=== PATIENT | female | born 1970 | race Two or more races ===

== ENCOUNTER → 2024-07-05 | Outpatient (CLI) | payer MEDICAID, SELFPAY ==
--- NOTE | 2024-07-05 08:00 | XR_ITS ---
Examination: Screening digital mammography, bilateral Computer aided detection 3-D breast Tomosynthesis, bilateral Date and time of exam: July 05, 2024 0759 hours Comparison January 06, 2014 Liver s Indication: Screening Technique: Nonmagnified MLO, CC views of the breasts to been obtained, reconstructed from 3-D Tomosynthesis images. R2 computer aided detection program utilized for evaluation of suspicious masses and/or abnormal calcifications. 3-D Tomosynthesis images obtained. Findings: The breast is heterogeneously dense, which may obscure small masses 20 mm focal asymmetry upper outer right breast Benign calcifications Impression: BI-RADS Category 0: Incomplete: Need additional imaging evaluation 20 mm focal asymmetry upper outer right breast, recommend follow-up spot tomographic views upper outer quadrant right breast, right breast sonography to complete the workup
== END | disposition home or self-care (01) ==
PROVIDERS: Referring Provider Physician Assistant; Visit Provider Physician Assistant
DX: Z12.31 Encounter for screening mammogram for malignant neoplasm of breast (principal); R92.8 Other abnormal and inconclusive findings on diagnostic imaging of breast; N64.89 Other specified disorders of breast
CPT/HCPCS: 77063; 77067

== ENCOUNTER 2024-07-10 14:16 | Outpatient (RCR) | payer MEDICAID, SELFPAY ==
--- NOTE | 2024-07-10 14:40 | PT.OIERPT ---
PT OP Initial Eval Patient Information Outpatient Physical Therapy Treatment Date: 07/10/24 Visit Reasons: Weakness Medical Diagnosis: R53.1 Treatment Dx #1: global weakness and deconditioning Start of Care: 07/10/24 Date of Onset: 12 months ago Smoking Status Smoking Status: Never smoker Initial Assessment Subjective: Pt is 53 yr old female who reports weakness and difficulty walking x12 months. She was hospitalized for dehydration and diarrhea and has been feeling LE weakness and doens't think she can walk a full block. This limits HH chore tolerance. She then tripped and fell at home and fractured the humerus. PMH: DM, HTN, kidney failure Pt goal: to get the strength back in my legs Objective: 30 second chair to stand test: 8 with shaky legs [id number] B quad strength: 3+/5 HS: 4-/5 Ankle DF: 4-/5 Eyes closed with feet together: very unsteady Turning around in a bear river: discontinuous steps. Assessment: Pt presents with B LE weakness and decreased TUG and 30 sec CTS scores. Pt is unsteady with eyes closed and has poor single leg standing balance. Pt requires skilled therapy to meet goals and has fair rehab potential. Short Term and [employer] Goals 1. Ind with HEP 2. Improved B quad strength to at least 4/5 3. Improved 30 second CTS test to at least 10 4. Pt will ambulate 1 block continuous with steady balance Treatment Plan 1. Manual therapy ? 2. Therex ? 3. Modalities as indicated, estim, moist heat, ice Frequency and Duration: 1-2x a week for 12 visits Certification Dates: 07/10/24 to 10/06/24 Procedure Charges OP PT Eval Mod Complex 30 minutes: Yes
== END 2024-07-23 23:59 | disposition home or self-care (01) ==
LOC: CPTX 14:16
PROVIDERS: PCP Physician Assistant; Referring Provider Physician Assistant; Visit Provider Physician Assistant
DX: R53.1 Weakness (principal); R26.2 Difficulty in walking, not elsewhere classified
CPT/HCPCS: 97162

== ENCOUNTER 2024-08-20 15:30 | Outpatient (RCR) | payer MEDICAID, SELFPAY ==
--- NOTE | 2024-08-01 17:48 | PT.ODAYNRPT ---
PT Outpatient Daily Note OP Daily Note Outpatient Physical Therapy Treatment Date: 08/01/24 Visit Reasons: Weakness Subjective: Pt c/o fatigue with most exercises here Objective: See F/S for therex Assessment: Pt fatigues and takes rest breaks after most exercises. Plan: Continue as tolerated Length of Time (minutes) of Treatment: 30 Minutes Procedure Charges Therapeutic Exercise 30 minutes: Yes
--- NOTE | 2024-08-07 16:18 | PT.ODAYNRPT ---
PT Outpatient Daily Note OP Daily Note Outpatient Physical Therapy Treatment Date: 08/07/24 Visit Reasons: Weakness Subjective: No new concerns or complaints. Objective: Please see flow sheet for ther ex list. Assessment: Interventions given alternating sitting and standing to maximize pt participation. Plan: Continue with POC. Length of Time (minutes) of Treatment: 30 Minutes Procedure Charges Therapeutic Exercise 30 minutes: Yes
--- NOTE | 2024-08-20 15:32 | PT.ODAYNRPT ---
PT Outpatient Daily Note OP Daily Note Outpatient Physical Therapy Treatment Date: 08/20/24 Visit Reasons: Weakness Subjective: Pt c/o B leg weakness. Objective: Please see flow sheet for ther ex list. Assessment: Focus on restoring strength per pt tolerance. Plan: Continue with pOC. Length of Time (minutes) of Treatment: 30 Minutes Procedure Charges Therapeutic Exercise 30 minutes: Yes
== END 2024-08-23 23:59 | disposition home or self-care (01) ==
LOC: CPTX 15:30
PROVIDERS: PCP Physician Assistant; Referring Provider Physician Assistant; Visit Provider Physician Assistant
DX: R53.1 Weakness (principal); R26.2 Difficulty in walking, not elsewhere classified; I10 Essential (primary) hypertension; E11.9 Type 2 diabetes mellitus without complications
CPT/HCPCS: 97110

== ENCOUNTER 2024-09-06 09:28 | Inpatient (IN) | payer MEDICAID, SELFPAY ==
--- NOTE | 2024-09-06 09:36 | PC.NURSE ---
Pt.'s cousin who is pt.'s ride is Nelsy Bocanegra [phone].
[2024-09-06 09:40] VITALS: BP 139/74; PULSE 112; RESP 18; TEMP 36.9; O2SAT 99; BMI 24.2
--- NOTE | 2024-09-06 09:44 | PD.EDRME ---
Rapid Medical Screening Exam RME Arrival date/time: 09/06/24 09:28 53-year-old female with a history of hypertension, type 2 diabetes presents to the emergency room for abnormal kidney function. Patient states that she was sent over by Dr. Pedraza her shell assembler for worsening kidney function. Patient states Dr Pedraza told her that she will need to start dialysis. Patient recently had a vitrectomy surgery to her eye yesterday. I have greeted and performed a focused initial assessment of this patient. A comprehensive ED assessment and evaluation of the patient, analysis of all test results, and completion of the medical decision making process will be conducted by additional ED providers. Chief Complaint: Recheck/Abnormal Lab/Rx Vital signs: Vital Signs Temperature 98.5 F 09/06/24 09:40 Pulse Rate 112 H 09/06/24 09:40 Respiratory Rate 18 09/06/24 09:40 Blood Pressure 139/74 H 09/06/24 09:40 Pulse Oximetry (%) 99 09/06/24 09:40 Oxygen Delivery Method Room Air 09/06/24 09:40 Vital signs reviewed by provider: Yes
[2024-09-06 10:08] LABS: Basophils % (Auto) 0 % (0-2.5); Eosinophils % (Auto) 0 % (0-10); Immature Granulocytes % (Auto) 0 % (0-0); Immature Granulocytes Auto 0.03 Thou/mm3 (0.00-0.00); Lymphocytes # (Auto) 1.8 Thou/mm3 (1.0-4.8); Lymphocytes % (Auto) 23 % (10-50); Mean Corpuscular HGB Conc 34.1 g/dl (31.0-37.0); Mean Corpuscular Hemoglobin 31.3 pg (25.0-35.0); Mean Corpuscular Volume 92 fL (80-100); Monocytes # (Auto) 0.5 Thou/mm3 (0.0-0.8); Monocytes % (Auto) 6 % (0-12); Neutrophils # (Auto) 5.2 Thou/mm3 (1.8-7.7); Neutrophils % (Auto) 69 % (37-80); Nucleated Red Blood Cell % 0 /100 WBC (0); Platelet Count 167 Thou/mm3 (140-440); RDW Standard Deviation 48.5 fL (36.4-46.3); White Blood Count 7.5 Thou/mm3 (3.6-11.0)
[2024-09-06 10:25] LABS: Prothrombin Time 11.1 Seconds (9.0-12.2)
[2024-09-06 10:31] LABS: Hemoglobin 7.5 g/dL (12.0-16.0)
[2024-09-06 10:32] LABS: Alanine Aminotransferase 66 U/L (10-49); Albumin, Serum 3.2 gm/dL (3.5-5.0); Albumin/Globulin Ratio 1.1 (1.2-2.2); Alkaline Phosphatase 142 U/L (46-116); Anion Gap 10 (7-16); Aspartate Amino Transferase 83 U/L (0-34); BUN/Creatinine Ratio 14 Ratio (12-20); Bilirubin,Total 0.4 mg/dL (0.3-1.2); Blood Urea Nitrogen 65 mg/dL (9-23); Calcium 8.1 mg/dL (8.3-10.6); Calcium (Corrected) 8.7 mg/dL (8.5-10.1); Carbon Dioxide 18.5 mMol/L (20.0-31.0); Chloride 111 mMol/L (98-107); Creatinine (Component) 4.5 mg/dL (0.6-1.3); Estimated Creatinine Clearance 10.6 mL/min (>60); Globulin 2.9 gm/dL (2.3-3.5); Glucose 175 mg/dL (74-106); Magnesium 1.7 mg/dL (1.6-2.6); Osmolality,Calculated 300 (275-295); Phosphorous 5.5 mg/dL (2.4-5.1); Potassium 4.9 mMol/L (3.4-5.1); Sodium 139 mMol/L (136-145); Total Protein 6.1 gm/dL (5.7-8.2); eGFR 11 See Note
--- NOTE | 2024-09-06 10:59 | EDNOTE_ITS ---
ED Recheck Abnl Lab Rx-RME/HPI General Chief Complaint: Recheck/Abnormal Lab/Rx Stated Complaint: Dr. Pedraza sent pt. for kidney function dropping Time Seen by Provider: 09/06/24 10:47 Arrival date/time: 09/06/24 09:28 RME / HPI RME / HPI narrative: 09/06/24 09:28 53-year-old female with a history of hypertension, type 2 diabetes presents to the emergency room for abnormal kidney function. Patient states that she was sent over by Dr. Pedraza her supervisor type bar and segment for worsening kidney function. Patient states Dr Pedraza told her that she will need to start dialysis. Patient recently had a vitrectomy surgery to her eye yesterday. I have greeted and performed a focused initial assessment of this patient. A comprehensive ED assessment and evaluation of the patient, analysis of all test results, and completion of the medical decision making process will be conducted by additional ED providers. -------- Main ED Evaluation: Patient is a 53-year-old female with past medical history of hypertension, type 2 diabetes, and CKD who was sent to the ED by her Graphic Art Sales Representative Dr. Pedraza who called her with lab results due to worsening kidney function on labs drawn on 09/04/2024 at [facility]. Labs showed GFR of 10, and for comparison prior labs 06/2024 showed GFR of 18. Patient had never been on dialysis before. Patient reports otherwise feeling in her usual state of health, and denies any new nausea, vomiting, diarrhea, chest pain, shortness of breath, or abdominal pain. Patient denies any fever, chills, and sweats. Patient reports that she is making her usual amount of urine and does not notice a change in the color or caliber. Patient had a right eye vitrectomy procedure yesterday at [facility] Dr. Johnson. Per instructions patient may have eye patch removed today, then is to start 2 different eye drops: ofloxacin opthalmic solution 0.3% 1 drop QID, prednisolone acetate 1% 1 drop QID. Patient's post-op follow up appointment is 09/16. complaint: abnormal lab Onset/Timin Initial visit (ago): day(s) Related Data Home Medications ?Medication ?Instructions ?Recorded ?Confirmed blood sugar diagnostic (True 02/12/24 02/12/24 Metrix Glucose Test Strip) lancets 30 gauge (TRUEplus Lancets) 02/12/24 02/12/24 pen needle, diabetic 31 gauge x 02/12/24 02/12/24 3/16 (TechLITE Pen Needle) Previous Rx's ?Medication ?Instructions ?Recorded allopurinol 100 mg tablet 100 mg PO QDAY 30 days #30 t abs 02/12/24 blood sugar diagnostic (Blood #50 ea 02/12/24 Glucose Test strips) flash glucose scanning reader #1 ea 02/12/24 (FreeStyle Daniel 2 [place]) flash glucose sensor (FreeStyle #1 ea 02/12/24 Daniel 2 Sensor kit) insulin glargine 100 unit/mL (3 36 unit (0.36 mL) subc ut BID #15 mL 02/12/24 mL) subcutaneous pen (Basaglar KwikPen U-100 Insulin) lancets (Lancets, Super Thin) #200 ea 02/12/24 pen needle, diabetic 29 gauge #100 ea 02/12/24 acetaminophen 300 mg-codeine 30 mg 1 tab PO BID PRN pa in #14 tabs 02/26/24 tablet Allergies Allergy/AdvReac Type Severity Reaction Status Date / Time No Known Allergies Allergy Verified 09/06/24 09:33 Review of Systems Review of Systems Systems Reviewed: All systems reviewed, normal except as documented Past Medical History Past Medical History Comments PMH COMMENT: Past Medical History: Hypertension, type 2 diabetes, and CKD Family History: Diabetes and heart disease in both parents and sister, ESRD sister on dialysis Surgical History: Right eye vitrectomy 09/05/2024, left breast biopsy, tubal ligation Social History: Remote history of smoking about 10 pack years, former alcohol use quit 10 years ago, used to drink 1 bottle of vodka daily, denies recreational drug use Current Medications: Insulin glargine 1-6 U daily, atorvastatin 20 mg HS, empagliflozin 25 qday, insulin glargine, lisinopril 2.5 mg qday, hydroxyzine 10 mg BID prn anxiety, Zofran 4 mg prn, Coty-Baldev, Vitamin D2, ofloxacin opthalmic solution 0.3% 1 drop QID, prednisolone acetate 1% 1 drop QID (Source: Patient medication bottles) Allergies: No known drug allergies ED Exam Narrative Physical exam: Physical Exam General: Awake and in no acute distress. Conversational and non-toxic appearing. HEENT: Normocephalic, atraumatic, mucous membranes moist. Right eye patch in place. Heart: Regular rate and rhythm, no murmurs. Lungs: Clear to auscultation with no wheezing or crackles. Abdomen: Soft, nondistended, nontender, positive bowel sounds. ?No guarding or rebound tenderness. Neurologic: Alert and oriented x3, no gross neurological deficit, and patient able to move all 4 extremities. Extremities: No edema. Skin: No rash or ecchymoses. Course Quality Measures none Orders Category Date Time Status Admit to Inpatient Status Routine Admission 09/06/24 15:58 Active Patient Condition Routine Admission 09/06/24 15:58 Ordered Activity as Tolerated Routine Care 09/06/24 16:05 Ordered Bedside Blood Glucose AC Care 09/06/24 16:05 Active COVID-19 Screening Questionnaire NOW Care 09/06/24 14:39 Active Decision to Admit X1 Care 09/06/24 14:39 Active Miscellaneous Nursing Order X1 Care 09/06/24 16:10 Active Notify provider NEEDED Care 09/06/24 15:58 Active Obtain weight X1 Care 09/06/24 16:03 Active Strict Intake and Output Routine Care 09/06/24 15:59 Ordered Vital Signs, Non-Routine Q4H Care 09/06/24 16:00 Ordered Vital Signs, Non-Routine Q4H Care 09/06/24 20:00 Ordered Consult to Nephrology Stat Cons 09/06/24 11:04 Ordered Diet Carbohydrate Consistent Low Diet 09/06/24 Dinner Active CBC AM DRAW Lab 09/07/24 05:00 Ordered CBC AM DRAW Lab 09/08/24 05:00 Ordered CBC AM DRAW Lab 09/09/24 05:00 Ordered CBC Stat Lab 09/06/24 09:55 Completed CMP [Comprehensive Metabolic Panel] Stat Lab 09/06/24 09:55 Completed Chloride,Urine Random Routine Lab 09/06/24 16:39 Ordered Comprehensive Metabolic Panel AM DRAW Lab 09/07/24 05:00 Ordered Comprehensive Metabolic Panel AM DRAW Lab 09/08/24 05:00 Ordered Comprehensive Metabolic Panel AM DRAW Lab 09/09/24 05:00 Ordered Creatinine,Random Urine Routine Lab 09/06/24 16:39 Ordered Hemoglobin A1C [Glycohemoglobin w (eAG)] AM DRAW Lab 09/07/24 05:00 Ordered Lipid Panel Routine Lab 09/07/24 05:00 Ordered Magnesium AM DRAW Lab 09/07/24 05:00 Ordered Magnesium AM DRAW Lab 09/08/24 05:00 Ordered Magnesium AM DRAW Lab 09/09/24 05:00 Ordered Magnesium Stat Lab 09/06/24 09:55 Completed PT [Prothrombin Time with INR] Stat Lab 09/06/24 09:55 Completed PTT [Partial Thromboplastin Time] Stat Lab 09/06/24 09:55 Completed Partial Thromboplastin Time AM DRAW Lab 09/07/24 05:00 Ordered Phosphorous AM DRAW Lab 09/07/24 05:00 Ordered Phosphorous AM DRAW Lab 09/08/24 05:00 Ordered Phosphorous AM DRAW Lab 09/09/24 05:00 Ordered Phosphorous Stat Lab 09/06/24 09:55 Completed Potassium,Urine Random Routine Lab 09/06/24 16:39 Ordered Prothrombin Time with INR AM DRAW Lab 09/07/24 05:00 Ordered Sodium,Urine Random Routine Lab 09/06/24 16:39 Ordered Thyroid Stimulating Hormone AM DRAW Lab 09/07/24 05:00 Ordered Urinalysis Stat Lab 09/06/24 16:16 Completed Urine Culture Stat Lab 09/06/24 16:16 Received Acetaminophen Tab [Tylenol Tab] Med 09/06/24 16:05 Active 650 mg PO Q6H PRN Atorvastatin Calcium [Lipitor] Med 09/06/24 21:00 Active 20 mg PO HS Benzonatate [Tessalon] Med 09/06/24 16:16 Active 100 mg PO Q12H PRN Dextrose 50% Syr [D50w Syringe Abboject] Med 09/06/24 16:05 Active 25 ml IV Q15MIN PRN Dextrose 50% Syr [D50w Syringe Abboject] Med 09/06/24 16:05 Active 50 ml IV Q15MIN PRN Glucagon Inj Med 09/06/24 16:05 Active 1 mg IM Q15MIN PRN Heparin Inj Med 09/06/24 16:15 Active 5,000 unit SC Q12H INSULIN LISPRO (AdmeLOG) [HumaLOG] Med 09/06/24 17:00 Active See Protocol SC AC Labetalol IV [Trandate IV] Med 09/06/24 16:39 Active 10 mg IVP Q12H PRN Ofloxacin Opt Marjorie 0.3% [Floxin Opt Marjorie 0.3%] Med 09/06/24 17:00 Active 1 drop RIGHT EYE QID Ondansetron Inj [Zofran Inj] Med 09/06/24 16:05 Active 4 mg IV Q6H PRN Pantoprazole [Protonix] Med 09/07/24 09:00 Active 40 mg PO QDAY Ringers Lactated 1000 ml [Lactated Ringers] 1,000 ml Med 09/06/24 11:57 Active IV 100 mls/hr Ringers Lactated 1000 ml [Lactated Ringers] 1,000 ml Med 09/06/24 11:46 Discontinued IV 999 mls/hr Senna [Senokot] Med 09/06/24 16:05 Active 1 tab PO QDAY PRN hydrOXYzine HCL [Atarax] Med 09/06/24 21:00 Active 10 mg PO HS prednisoLONE OP SUSP 1% [Pred-Forte Op Susp 1%] Med 09/06/24 17:00 Active 1 drop RIGHT EYE QID Code Status Routine Oth 09/06/24 15:58 Ordered Vital Signs Vital signs: Vital Signs Temperature 98.5 F 09/06/24 09:40 Pulse Rate 112 H 09/06/24 09:40 Respiratory Rate 18 09/06/24 09:40 Blood Pressure 139/74 H 09/06/24 09:40 Pulse Oximetry (%) 99 09/06/24 09:40 Oxygen Delivery Method Room Air 09/06/24 09:40 Recheck / Abnormal Lab / Rx MDM Narrative MDM Narrative:: Labs here show sodium 139, potassium 4.9, BUN 65, creatinine of 4.5, GFR 11, phos 5.5. Review of the records indicate patient's prior baseline was creatinine 2.1-2.7 and GFR in the 20s. Patient most likely has a ARIK on CKD, secondary to dehydration versus possible UTI, will await urine studies and then consult hospital team for admission. UA shows negative for leukocyte esterase, 11 squamous cells, 6 WBCs and rare bacteria. Unlikely patient has a UTI. Patient data External records reviewed:: [facility] previous records and Other (specify) (Nephrolog y lab records) Clinical information provided by:: patient and other (specify) (Graphic Art Sales Representative Dr. Pedraza) Social determinants that could affect healthcare access:: none Patient has the following chronic illnesses:: As above How is presenting disease/condition affected by chronic disease/condition?: caused by Evaluation data The following diagnostics were reviewed and interpreted by me:: lab results, radiology exam(s) and EKG tracing(s) Lab and/or radiology exams considered but not ordered:: Ordered Interpretation Summary: As above Medications / Prescriptions Medications or Prescriptions considered but not ordered:: Given Medication administrations:: Medication Administration History Acetaminophen (Acetaminophen 325 Mg Tablet) 650 mg PO Q6H PRN PRN Reason: Fever >100 or pain 1-3 Stop: 10/06/24 16:04 Atorvastatin Calcium (Atorvastatin Calcium 10 Mg Tablet) 20 mg PO HS DANIEL Stop: 10/06/24 20:59 Benzonatate (Benzonatate 100 Mg Capsule) 100 mg PO Q12H PRN; Protocol PRN Reason: cough Stop: 10/06/24 16:15 Dextrose (Dextrose 50%-Water Inj 50 Ml Syringe) 25 ml IV Q15MIN PRN PRN Reason: BG 50-70 responsive npo pt Stop: 10/06/24 16:04 Dextrose (Dextrose 50%-Water Inj 50 Ml Syringe) 50 ml IV Q15MIN PRN PRN Reason: BG <50 OR BG <70 & pt unresponsive Stop: 10/06/24 16:04 Glucagon (Glucagon Inj 1 Mg Vial) 1 mg IM Q15MIN PRN PRN Reason: BG <70, and no IV access Heparin Sodium (Porcine) (Heparin Sod Inj 5000 Unit/Ml Vial) 5,000 unit SC Q12H DANIEL Stop: 09/20/24 16:14 Hydroxyzine HCl (Hydroxyzine Hcl 10 Mg Tablet) 10 mg PO HS DANIEL Stop: 10/06/24 20:59 Lactated Ringer's (Lactated Ringers) 1,000 mls @ 100 mls/hr IV .Q10H DANIEL Stop: 09/06/24 21:56 Insulin Human Lispro (Insulin Lispro (Admelog) 1 Unit/0.01 Ml Unit) 0 unit SC AC [facility]; Protocol Stop: 10/06/24 16:59 Labetalol HCl (Labetalol Inj 5 Mg/Ml Vial 20 Ml) 10 mg IVP Q12H PRN PRN Reason: hypertension Stop: 10/06/24 16:38 Ofloxacin (Ofloxacin Op Marjorie 0.3% 5 Ml Btl) 1 drop RIGHT EYE QID DANIEL Stop: 09/15/24 16:59 Ondansetron HCl (Ondansetron Inj 2 Mg/Ml Inj 2 Ml) 4 mg IV Q6H PRN; Protocol PRN Reason: NAUSEA OR VOMITING Stop: 10/06/24 16:04 Pantoprazole Sodium (Pantoprazole 40 Mg Tablet) 40 mg PO QDAY DANIEL Stop: 10/07/24 08:59 Prednisolone Acetate (Prednisolone Op Susp 1% 5 Ml Btl) 1 drop RIGHT EYE QID DANIEL Stop: 09/15/24 16:59 Sennosides (Senna Tablet) 1 tab PO QDAY PRN; Protocol PRN Reason: constipation Stop: 10/06/24 16:04 Discontinued Medications Lactated Ringer's (Lactated Ringers) 1,000 mls @ 999 mls/hr IV .Q1H1M ONE Stop: 09/06/24 12:46 Given Consultations Consultation(s) initiated? (list below): Yes Consultation #1 (Physician, Specialty, Details): 11:39 Patient's Graphic Art Sales Representative, Dr. Pedraza - Discussed patient including lab findings here in ED today. According to [facility] in Dr. Pedraza's chart patient had GFR of 10, whereas last lab check in 06/2024 showed a prior GFR of 18. Urinalysis at that time also suggested UTI. Advises patient be admitted for IV fluids for prerenal ARIK on CKD and treated for UTI. Hold off on dialysis for now and reassess response to fluids. Consultation #2 (Physician, Specialty, Details): 14:35 Hospitalist Team C, Dr. Meraz with attending Dr. Sweeney - Discussed patient's presentation, lab findings, and recommendations from Dr. Pedraza. Patient is to be admitted for ARIK on CKD. Will come evaluate the patient for admission. Diagnosis Recheck Differential Diagnosis: other Most likely diagnosis given after review of the tests above:: ARIK on CKD, progressive renal failure secondary to longstanding diabetes mellitus Admission Indicated Admission indicated?: indicated Explain why admission is indicated or not indicated:: IV fluids for ARIK on CKD Admission Request Was there a request for admission?: Yes Admission Attestation Admission request attestation: Discussed case with [] from Hospitalist service regarding admission. Discussed patients ED course, exam findings, labs, and radiology results. The Hospitalist [agrees,declines] to accept the patient for admission. Disposition Plan Disposition Plan: Admit Discharge Plan Plan Patient Disposition: Admit Acute Care w/in Hospital Patient condition on transfer: Stable Prescriptions/Referrals Prescriptions/Med Rec: No Action (DME) True Metrix Glucose Test Strip Strip (DME) pen needle, diabetic [TechLITE Pen Needle] 31 gauge x 3/16 needle (DME) lancets [TRUEplus Lancets] 30 gauge misc insulin glargine [Basaglar KwikPen U-100 Insulin] 100 unit/mL (3 mL) insulin pen 36 unit subcut BID Qty: 15 3RF allopurinol 100 mg tablet 100 mg PO QDAY 30 Days Qty: 30 3RF (DME) Blood Glucose Test Strip See Rx Instructions .Route Qty: 50 3RF Rx Instructions: As directed (DME) pen needle, diabetic 29 gauge needle See Rx Instructions .Route Qty: 100 0RF Rx Instructions: As directed (DME) lancets [Lancets, Super Thin] Misc See Rx Instructions .Route Qty: 200 3RF Rx Instructions: As directed (DME) FreeStyle Daniel 2 [place] Misc See Rx Instructions .Route Qty: 1 3RF Rx Instructions: As directed (DME) FreeStyle Daniel 2 Sensor Kit See Rx Instructions .Route Qty: 1 3RF Rx Instructions: As directed acetaminophen-codeine 300-30 mg tablet 1 tab PO BID PRN (Reason: pain) Qty: 14 0RF Referrals: Mykel Wilson PA-C [Primary Care Provider] - In 1 week Problem List Clinical Impression: Acute kidney injury superimposed on chronic kidney disease Patient/Caregiver Discharge Instructions Print Language: [place] Stand Alone Forms: [facility] Award Info., Patient Portal Info Letter
[2024-09-06 15:52] VITALS: BP 158/88; PULSE 105; RESP 15; TEMP 36.7; O2SAT 100
--- NOTE | 2024-09-06 16:18 | ESHP_ITS ---
<Statement entered by Moe Meraz MD - 09/07/24 15:42> Senior Resident Attestation: I supervised/discussed management plan with internal combustion engineer physician Dr. Haile, and was involved in the care of this patient. I personally saw and examined the patient and discussed the assessment and plan with the entire medicine team, including my attending. I agree with the assessment and plan as documented. Patient is a 53 years old female with PMH of IDDM type 2, CKD stage IV, HTN presented to the ED after call from her pain management nurse practitioner and was admitted for ARIK with Cr of 4.5 and was started on IVF. Dr. Pedraza is on board. Patient's care was discussed with attending physician, Dr. Sweeney. Moe Meraz MD PGY-2. Documentation for date of: 09/06/24 HPI History of Present Illness History of present illness: Catrina is a 53 y/o female with uncontrolled insulin-dependent diabetes type 2, CKD stage IV, hypertension who is here for an evaluation of worsening renal labs. Patient this morning was informed by her pain management nurse practitioner, Dr. Pedraza, who instructed patient to go to the ER after seeing that her renal labs were elevated. She does endorse that yesterday she had a right sided vitrectomy done at [facility] by Dr. Johnson, Opthalamologist. She does state that she needs to continue taking 2 different eyedrops and needs her patch removed when done so. She does say that she got an IV yesterday, was unsure of what medicines including contrast she was given. She denies recent poor oral intake and also denies being on any water pills. She says she has been dealing with longstanding diabetes in addition to chronic kidney disease. She said she had a vitrectomy done as her eye was bleeding. She states that she has a chronic cough but denies any fever or chills at this time. She denies any recent travel. She says that she was recently diagnosed with Crohn's, is not taking any medicine for it, and sometimes has diarrhea with it but does not specify how many times she has diarrhea in a day. She says other than that her bowels are fine. She otherwise has no other complaints at this time. She denies using a walker but says she feels weak and is able to walk on her own at times. Patient confirmed information on the ED course: Patient arrived to the ED afebrile, heart rate of 112, respiratory of 18, blood pressure of 139/74, respiratory 18, saturating 99% on RA. She was worked up and found to have a white count 7.5, hemoglobin 7.5, platelet count of 167, coagulation panel negative, sodium 139, potassium 4.9, chloride 111, bicarb of 19, BUN/creatinine of 65 and 4.5 respectively, GFR of 11, glucose 175, phosphorus 5.5, calcium 8.7, mag 1.7, AST ALT 83 and 66 respectively, pending urine. She was given 1 L bolus of LR, started on LR 100 cc an hour. Medicine was consulted and patient was admitted to the floors PMHx: As above Surgical Hx: Tubal ligation Meds: Lipitor, Jardiance, lisinopril, hydroxyzine, Basaglar (she says 6 units) Zofran, prednisolone eyedrops, ofloxacin eyedrops, Cadence-nichelle Allergies: No known allergies Family history: Denies a family history of medical problems including stroke and diabetes and heart attacks Social history: Was born in [facility] and lives in [place] now with her daughter who is 19 years old. She has other kids, her oldest being 37 years old. She denies any recent travel. Says that she does not use a walker. Eats a majority of meals at home denies having any oral or IV drug use, was a heavy drinker for 1 year of her life when she was younger in which she drink 1 bottle of vodka a day, smoked 1 cigarette for about 3 months when she was younger. Review of Systems Review of Systems Narrative Review of Systems: Constitutional: No fever, chills, fatigue, weakness, weight loss HEENT: No eye pain, vision loss, ear pain, hearing loss, dysphagia, Cardiovascular: No chest pain, palpitations, edema, pain with walking Respiratory: + cough, no shortness of breath, wheezing GI: No NVD, abdominal pain, constipation, blood in stool, loss of appetite, heartburn Extremities: No presence of pitting edema MSK: No back pain, joint pain, joint swelling Neuro: No dizziness, numbness, weakness, headaches, seizures, tremors Psych: No anxiety, depression Exam Vital Signs Temp Pulse Resp BP Pulse Ox O2 Del Method 98.5 F 112 H 18 139/74 H 99 Room Air 09/06/24 09:40 09/06/24 09:40 09/06/24 09:40 09/06/24 09:40 09/06/24 09:40 09/06/24 09:40 Narrative Exam General: AAOx3, NAD, eating salad, looks older than her age HEENT: Moist mucous membranes, right eye patch present, Extremely poor dentition Cardiovascular: Systolic EM heard upon VIJAYA, radial pulses +2 bilat, RRR Pulmonary: CTAB bilat no cough, no wheezing GI: No tenderness to light or deep palpitation, no guarding, rigidity, rebound tenderness or distension Extremities: No presence of trace or pitting edema in lower extremities bilaterally, dorsalis pedis pulses +2 bilaterally Neuro: AAOx3, no focal motor or sensory deficits in the UE or LE bilat Psych: Cooperative Results: Labs 09/06/24 09:55 09/06/24 09:55 Labs: Short CBC 09/06/24 Range/Units 09:55 WBC 7.5 (3.6-11.0) Thou/mm3 Hgb 7.5 L (12.0-16.0) g/dL Hct 22.0 L (36.0-46.0) % Plt Count 167 (140-440) Thou/mm3 BMP 09/06/24 09:55 Sodium 139 Potassium 4.9 Chloride 111 H Carbon Dioxide 18.5 L BUN 65 H Creatinine 4.5 H* Glucose 175 H Calcium 8.1 L Liver Function 09/06/24 Range/Units 09:55 Total Bilirubin 0.4 (0.3-1.2) mg/dL AST 83 H (0-34) U/L ALT 66 H (10-49) U/L Alkaline Phosphatase 142 H (46-116) U/L Albumin 3.2 L (3.5-5.0) gm/dL Quality Measures Quality Measures VTE prophylaxis (Heparin) Medications Home Medications and Allergies Home Medications ?Medication ?Instructions ?Recorded ?Confirmed ?Type blood sugar diagnostic (True 02/12/24 02/12/24 Histor y Metrix Glucose Test Strip) lancets 30 gauge (TRUEplus Lancets) 02/12/24 02/12/24 History pen needle, diabetic 31 gauge x 02/12/24 02/12/24 His tory 10/06 (TechLITE Pen Needle) Allergies Allergy/AdvReac Type Severity Reaction Status Date / Time No Known Allergies Allergy Verified 09/06/24 09:33 Visit Medications Acetaminophen (Acetaminophen 325 Mg Tablet) 650 mg PO Q6H PRN PRN Reason: Fever >100 or pain 1-3 Stop: 10/06/24 16:04 Atorvastatin Calcium (Atorvastatin Calcium 10 Mg Tablet) 20 mg PO HS [facility] Stop: 10/06/24 20:59 Benzonatate (Benzonatate 100 Mg Capsule) 100 mg PO Q12H PRN; Protocol PRN Reason: cough Stop: 10/06/24 16:15 Dextrose (Dextrose 50%-Water Inj 50 Ml Syringe) 25 ml IV Q15MIN PRN PRN Reason: BG 50-70 responsive npo pt Stop: 10/06/24 16:04 Dextrose (Dextrose 50%-Water Inj 50 Ml Syringe) 50 ml IV Q15MIN PRN PRN Reason: BG <50 OR BG <70 & pt unresponsive Stop: 10/06/24 16:04 Glucagon (Glucagon Inj 1 Mg Vial) 1 mg IM Q15MIN PRN PRN Reason: BG <70, and no IV access Heparin Sodium (Porcine) (Heparin Sod Inj 5000 Unit/Ml Vial) 5,000 unit SC Q12H DANIEL Stop: 09/20/24 16:14 Hydroxyzine HCl (Hydroxyzine Hcl 10 Mg Tablet) 10 mg PO HS [facility] Stop: 10/06/24 20:59 Lactated Ringer's (Lactated Ringers) 1,000 mls @ 100 mls/hr IV .Q10H DANIEL Stop: 09/06/24 21:56 Insulin Human Lispro (Insulin Lispro (Admelog) 1 Unit/0.01 Ml Unit) 0 unit SC AC DANIEL; Protocol Stop: 10/06/24 16:59 Ofloxacin (Ofloxacin Op Marjorie 0.3% 5 Ml Btl) 1 drop RIGHT EYE QID DANIEL Stop: 09/15/24 16:59 Ondansetron HCl (Ondansetron Inj 2 Mg/Ml Inj 2 Ml) 4 mg IV Q6H PRN; Protocol PRN Reason: NAUSEA OR VOMITING Stop: 10/06/24 16:04 Pantoprazole Sodium (Pantoprazole 40 Mg Tablet) 40 mg PO QDAY DANIEL Stop: 10/07/24 08:59 Prednisolone Acetate (Prednisolone Op Susp 1% 5 Ml Btl) 1 drop RIGHT EYE QID DANIEL Stop: 09/15/24 16:59 Sennosides (Senna Tablet) 1 tab PO QDAY PRN; Protocol PRN Reason: constipation Stop: 10/06/24 16:04 Discontinued Medications Lactated Ringer's (Lactated Ringers) 1,000 mls @ 999 mls/hr IV .Q1H1M ONE Stop: 09/06/24 12:46 Assessment & Plan Plan Assessment Catrina is a 53 y/o female with uncontrolled insulin-dependent diabetes type 2, CKD stage IV, hypertension who is admitted for ARIK. #ARIK #History of CKD stage IV Patient has ARIK at this time, likely prerenal, but patient may also of gotten contrast yesterday, unlikely during ophthalmologic procedure We will see how patient recovers if patient does not recover and goes into acute renal failure may need dialysis Status post 1 L bolus of LR GFR currently [address] Pedraza nephrology Creatinine seems to be 2.3 at baseline Plan: ? Nephrology consulted, appreciate recs ? Strict JOSE's ? Avoid nephrotoxic agents ? Renally dose medicines ? LR 100 cc an hour ? Urine lytes and creatinine #History of hypertension Plan: ? Labetalol 10 mg for systolic blood pressure above 170 with holding parameters ? Holding home lisinopril in setting of ARIK #History of insulin-dependent diabetes type 2 Seems to be uncontrolled Takes 6 units of Basaglar at home Plan: ? SSI ? Hypoglycemic protocol in place ? Carb consistent low diet ? Blood glucose checks with meals #Status post vitrectomy postoperative day 1 Patient said she got procedure for a bleeding right eye Patient does have eyepatch and right eye Plan: ? Resumed home prednisolone eyedrops 1 drop in right eye 4 times a day ? Resumed home ofloxacin eyedrops 1 drop in right eye 4 times a day #Health Maintenance Disposition: Med/Surg DVT prophylaxis: Heparin q12h GI prophylaxis: Protonix Diet: Carb low CODE STATUS:Full Patient seen and care discussed with my senior resident, Dr. Meraz, and my attending physician, Dr. Zahra Haile, PGY-1
[2024-09-06 16:25] LABS: Collection Type, Urine Clean Catch
[2024-09-06 16:40] LABS: Bacteria,Urine Rare; Bilirubin,Urine Negative (Negative); Blood,Urine 2+ (Negative); Color,Urine Yellow (Lt Yel-Yel); Glucose, Urine 4+ (Negative); Ketones,Urine Negative (Negative); Leukocyte Esterase,Urine Negative (Negative); Nitrite,Urine Negative (Negative); PH,Urine 6.5 (5.0-7.0); Protein,Urine 3+ (Neg - Trace); RBC,Urine 3 /hpf (0-3); Specific Gravity,Urine 1.017 (1.001-1.035); Squamous Epithelial Cell,Urine 11 /hpf (0-5); Urobilinogen,Urine Negative mg/dL (0.0-1.0); WBC,Urine 6 /hpf (0-5)
[2024-09-06 16:42] LABS: Clarity,Urine Hazy (Clear/Hazy)
[2024-09-06 17:40] VITALS: BP 154/86; PULSE 96; RESP 19; O2SAT 100
[2024-09-06] MEDS: RINGERS LACTATED 1000 ML 1,000 ML 999 ML IV (17:49)
[2024-09-06] MEDS: RINGERS LACTATED 1000 ML 1,000 ML 100 ML IV (17:57)
[2024-09-06] MEDS: HEPARIN SOD INJ 5000 UNIT/ML VIAL SC (18:02)
[2024-09-06] MEDS: OFLOXACIN OP SOL 0.3% 5 ML BTL 1 DROP RIGHT EYE (18:06)
[2024-09-06] MEDS: prednisoLONE OP SUSP 1% 5 ML BTL 1 DROP RIGHT EYE (18:07)
[2024-09-06 18:10] VITALS: BP 156/89; PULSE 95; RESP 18; TEMP 36.9; O2SAT 100
[2024-09-06] MEDS: ACETAMINOPHEN 325 MG TABLET 650 MG PO (19:40)
--- NOTE | 2024-09-06 20:02 | ESCONSULT_ITS ---
HPI Data of Consult Consult date: 09/06/24 Requesting Physician: Christi Sweeney MD Admitting Provider: Christi Sweeney MD Attending Provider: Christi Sweeney MD Primary Care Provider: Mykel Wilson PA-C Consult Narrative Reason for consult: ARIK on CKD stage IV with electrolyte abnormality History of present illness: The patient is a 53-year-old female with significant past medical history of uncontrolled DM 2, CKD stage IV, hypertension was sent by carpet winder Dr. Pedraza due to worsening of renal function labs. The patient underwent right eye vitrectomy at [facility] by office worker Dr. Johnson. The patient admitted having chronic cough, but denied any chest pain or SOB, fever or chills, he admitted occasional diarrhea as she was recently diagnosed with Crohn's disease. In the ED her vitals were stable with blood pressure 139/74, pulse rate 112 saturating 99% on room air. The patient's last labs revealed hemoglobin 7.5, hematocrit 22.0, sodium 139, potassium 4.9, chloride 111, bicarb 18.5, BUN 65, creatinine 4.5, EGFR 11, blood sugar 175, corrected calcium 8.7, phosphorus 5.5, mild transaminitis with AST/ALT 83/66, ALP 142, UA revealed protein 3+, glucose 4+, blood 2+, WBC 6, bacteria rare. The patient was given 1 L IV LR bolus and started on 100 cc/h of LR and admitted to the floors. Nephrology consultation was done for further management of ARIK on CKD stage IV and electrolyte abnormalities. PMH: As mentioned above SHX: Left breast biopsy, tubal ligation, right I be directed to me on 09/05/2024 Social history: Remote history of a smoking around 10 pack years, former alcohol use quit 10 years ago, used to drink 1 bottle of vodka daily, denies any recreational drug use Family history: Diabetes and heart disease in both parents and sister, ESRD on sister on HD Medications: Insulin glargine 1 two 6 unit daily, atorvastatin 20 Mg at bedtime, empagliflozin 25 mg daily, insulin glargine, lisinopril 2.5 Mg daily, hydroxyzine 10 Mg twice daily as needed for anxiety, Zofran 4 mg as needed, Coty-Baldev, vitamin D2, ofloxacin ophthalmic solution 0.3% 1 drop 4 times daily, prednisone acetate 1% 1 drop 4 times daily. Allergies: No known allergies cc:: cc: Christi Sweeney MD Review of Systems Review of Systems Systems Reviewed: All systems reviewed, normal except as documented Past Medical History Past Medical History NEUROLOGIC: Negative Seizures CARDIAC: Positive Hypertension; Negative Cardiac Disorders or Congestive Heart Failure RESPIRATORY: Negative Chronic Obstructive Pulmonary Disease (COPD) GASTROINTESTINAL: Positive Gastrointestinal Disorders, Gall Bladder Disease and Obesity GENITOURINARY: Positive Genitourinary Disorders; Negative Renal Disease MUSCULOSKELETAL: Positive Musculoskeletal Disorders, Arthritis and Gout ENDOCRINE: Positive Endocrine Disorders and Diabetes Mellitus Type 2; Negative Diabetes Mellitus Type 1 HEMATOLOGIC: Negative Anemia OTHER HISTORY: Positive Falls; Negative Blood Transfusions, Blood Transfusion Reaction, Anesthesia Reactions, MRSA, VRSA or Cancer Family History FAMILY HISTORY: Positive Family Cardiac Disorders and Family Cancer (PT'S MOM THROAT CANCER) Surgical History SURGICAL: Negative Section Social History SMOKING STATUS: Former smoker Past Medical History Comments PMH COMMENT: Past Medical History: Hypertension, type 2 diabetes, and CKD Family History: Diabetes and heart disease in both parents and sister, ESRD sister on dialysis Surgical History: Right eye vitrectomy 09/05/2024, left breast biopsy, tubal ligation Social History: Remote history of smoking about 10 pack years, former alcohol use quit 10 years ago, used to drink 1 bottle of vodka daily, denies recreational drug use Current Medications: Insulin glargine 1-6 U daily, atorvastatin 20 mg HS, empagliflozin 25 qday, insulin glargine, lisinopril 2.5 mg qday, hydroxyzine 10 mg BID prn anxiety, Zofran 4 mg prn, Coty-Baldev, Vitamin D2, ofloxacin opthalmic solution 0.3% 1 drop QID, prednisolone acetate 1% 1 drop QID (Source: Patient medication bottles) Allergies: No known drug allergies Exam Vital Signs Temp Pulse Resp BP Pulse Ox O2 Del Method 98.5 F 95 18 156/89 H 100 Room Air 09/06/24 18:10 09/06/24 18:10 09/06/24 18:10 09/06/24 18:10 09/06/24 18:10 09/06/24 18:10 Narrative Exam General: No acute distress, Alert and Oriented x 3 HEENT: Moist mucous membranes, oropharynx clear, right eye patch present Neck: Supple, No masses, No JVD CVS: S1S2 Regular rate and rhythm, No murmurs, rubs or gallops Lungs: Clear to auscultation with no accessory use, no wheeze no rhonchi Abd: Soft, NT/ND, +BS, no organomegaly Ext: 0 to 1+ lower limb edema, warm and well perfused Skin: No rash Psych: Appropriate mood and affect Results Labs 09/08/24 05:44 09/08/24 05:44 Labs: Short CBC 09/06/24 Range/Units 09:55 WBC 7.5 (3.6-11.0) Thou/mm3 Hgb 7.5 L (12.0-16.0) g/dL Hct 22.0 L (36.0-46.0) % Plt Count 167 (140-440) Thou/mm3 BMP 09/06/24 09:55 Sodium 139 Potassium 4.9 Chloride 111 H Carbon Dioxide 18.5 L BUN 65 H Creatinine 4.5 H* Glucose 175 H Calcium 8.1 L Liver Function 09/06/24 Range/Units 09:55 Total Bilirubin 0.4 (0.3-1.2) mg/dL AST 83 H (0-34) U/L ALT 66 H (10-49) U/L Alkaline Phosphatase 142 H (46-116) U/L Albumin 3.2 L (3.5-5.0) gm/dL Urine 09/06/24 Range/Units 16:16 Urine Color Yellow (Lt Yel-Yel) Urine Clarity Hazy (Clear/Hazy) Urine pH 6.5 (5.0-7.0) Ur Specific [place] 1.017 (1.001-1.035) Urine Protein 3+ A (Neg - Trace) Urine Glucose (UA) 4+ A (Negative) Quality Measures Quality Measures VTE prophylaxis (Heparin) Medications Home Medications and Allergies Home Medications ?Medication ?Instructions ?Recorded ?Confirmed ?Type blood sugar diagnostic (True 02/12/24 02/12/24 Histor y Metrix Glucose Test Strip) lancets 30 gauge (TRUEplus Lancets) 02/12/24 02/12/24 History pen needle, diabetic 31 gauge x 02/12/24 02/12/24 His tory 10/06 (TechLITE Pen Needle) B complex-vitamin C-folic acid PO QDAY 09/07/24 Histo ry atorvastatin 20 mg tablet 20 mg PO .evening 09/07/24 0 09/07/24 History empagliflozin 25 mg tablet 25 mg PO QDAY 09/07/2408/24 History (Jardiance) Held on 09/08/24. Instructions: Resume on 09/15/24. ergocalciferol (vitamin D2) 1,250 09/07/24 History mcg (50,000 unit) capsule hydroxyzine HCl 10 mg tablet 10 mg PO BID 09/07/24 History lisinopril 2.5 mg tablet mg 09/07/24 History Held on 09/08/24. Instructions: Resume on 09/15/24. ofloxacin 0.3 % eye drops 1 drp ophthalmic (eye) QID 0 09/07/24 09/07/24 History ondansetron 4 mg disintegrating 4 mg PO PRN nausea and vomiting 09/07/24 History tablet prednisolone acetate 1 % eye 1 drp ophthalmic (eye) QI D 09/07/24 09/07/24 History drops,suspension (Pred Forte) vitamin B complex-vitamin C-folic tab 09/07/24 Histor y acid 0.8 mg tablet (Coty-Baldev) Allergies Allergy/AdvReac Type Severity Reaction Status Date / Time No Known Allergies Allergy Verified 09/06/24 09:33 Visit Medications Acetaminophen (Acetaminophen 325 Mg Tablet) 650 mg PO Q6H PRN PRN Reason: Fever >100 or pain 1-3 Stop: 10/06/24 16:04 Last Admin: 09/06/24 19:40 Dose: 650 mg Atorvastatin Calcium (Atorvastatin Calcium 10 Mg Tablet) 20 mg PO HS DANIEL Stop: 10/06/24 20:59 Benzonatate (Benzonatate 100 Mg Capsule) 100 mg PO Q12H PRN; Protocol PRN Reason: cough Stop: 10/06/24 16:15 Dextrose (Dextrose 50%-Water Inj 50 Ml Syringe) 25 ml IV Q15MIN PRN PRN Reason: BG 50-70 responsive npo pt Stop: 10/06/24 16:04 Dextrose (Dextrose 50%-Water Inj 50 Ml Syringe) 50 ml IV Q15MIN PRN PRN Reason: BG <50 OR BG <70 & pt unresponsive Stop: 10/06/24 16:04 Glucagon (Glucagon Inj 1 Mg Vial) 1 mg IM Q15MIN PRN PRN Reason: BG <70, and no IV access Heparin Sodium (Porcine) (Heparin Sod Inj 5000 Unit/Ml Vial) 5,000 unit SC Q12H [facility] Stop: 09/20/24 16:14 Last Admin: 09/06/24 18:02 Dose: 5,000 unit Hydroxyzine HCl (Hydroxyzine Hcl 10 Mg Tablet) 10 mg PO HS [facility] Stop: 10/06/24 20:59 Lactated Ringer's (Lactated Ringers) 1,000 mls @ 100 mls/hr IV .Q10H DANIEL Stop: 09/06/24 21:56 Last Admin: 09/06/24 17:57 Dose: 100 mls/hr Insulin Human Lispro (Insulin Lispro (Admelog) 1 Unit/0.01 Ml Unit) 0 unit SC AC [facility]; Protocol Stop: 10/06/24 16:59 Last Admin: 09/06/24 18:00 Dose: Not Given Labetalol HCl (Labetalol Inj 5 Mg/Ml Vial 20 Ml) 10 mg IVP Q12H PRN PRN Reason: hypertension Stop: 10/06/24 16:38 Ofloxacin (Ofloxacin Op Marjorie 0.3% 5 Ml Btl) 1 drop RIGHT EYE QID [facility] Stop: 09/15/24 16:59 Last Admin: 09/06/24 18:06 Dose: 1 drop Ondansetron HCl (Ondansetron Inj 2 Mg/Ml Inj 2 Ml) 4 mg IV Q6H PRN; Protocol PRN Reason: NAUSEA OR VOMITING Stop: 10/06/24 16:04 Pantoprazole Sodium (Pantoprazole 40 Mg Tablet) 40 mg PO QDAY [facility] Stop: 10/07/24 08:59 Prednisolone Acetate (Prednisolone Op Susp 1% 5 Ml Btl) 1 drop RIGHT EYE QID [facility] Stop: 09/15/24 16:59 Last Admin: 09/06/24 18:07 Dose: 1 drop Sennosides (Senna Tablet) 1 tab PO QDAY PRN; Protocol PRN Reason: constipation Stop: 10/06/24 16:04 Discontinued Medications Lactated Ringer's (Lactated Ringers) 1,000 mls @ 999 mls/hr IV .Q1H1M ONE Stop: 09/06/24 12:46 Last Admin: 09/06/24 17:49 Dose: 999 mls/hr Assessment & Plan Plan The patient is a 53-year-old female with significant past medical history of uncontrolled DM 2, CKD stage IV, hypertension was sent by carpet winder Dr. Pedraza due to worsening of renal function labs. Nephrology consultation was done for further management of AIRK on CKD stage IV and electrolyte abnormalities. #ARIK on stage IV CKD Likely prerenal but denies poor appetite or low p.o. intake Presented with creatinine 4.3, BUN 65 and GFR 11, baseline creatinine around 2.1, GFR in 20s Patient received 1 L LR bolus in the ED -Started on LR 100 cc/h -Avoid nephrotoxic drugs -Renal dose medications -Ordered urine electrolytes -Continue to monitor renal panel daily in the a.m. - renal BI ordered #RTA type IV Secondary to chronic kidney disease Presented with hyperkalemic and hyperchloremic metabolic acidosis with chloride 111, potassium 4.9 and bicarb 18.5 -Started on Bicitra 30 mL twice daily as it has mortality benefit when bicarb level is less than 22 -Continue to monitor daily renal panel #Hyperphosphatemia Secondary to CKD Presented with phosphorus of 5.5 -Started on sevelamer 800 Mg 3 times daily with meals -Continue to monitor phosphorus level daily in the a.m. #Primary hypertension Blood pressure in the range of 150s-160s/80s-to 90s -On IV labetalol 2.5 Mg every 4 hourly as needed for SBP 170 with holding parameters -Continue to hold home lisinopril in the setting of ARIK #Insulin-dependent diabetes mellitus type 2 #Status post vitrectomy -Management deferred to primary hospitalist team Thank you for your opportunity to participate nephrology team in this patient care. The patient's management plan was discussed with my attending physician MD Albino Rios MD, PGY2 Attending Provider Attestation/Addendum Patient seen and examined with resident physician Dr. Gauthier. Note reviewed, agree with findings and recommendations. Patient with advanced CKD stage IV diabetic nephropathy has been following up with me for the last couple of years. In June her GFR was 18. Currently comes with a GFR of 11. Admits to decreased p.o. intake. Will continue with fluids. If no improvement will plan for renal replacement therapy. Patient agreed. She also has a severe diabetic retinopathy-under the care of an office worker in [place]. Recently had retinal detachment and surgery. Legally blind. Renal Prognosis poor. Thank you Dr. Sweeney for allowing me to participate in the care of Ms. Lorenzo
[2024-09-06 20:31] VITALS: BP 165/109; PULSE 93; RESP 19; O2SAT 96
[2024-09-07 00:27] VITALS: BMI 29.2
--- NOTE | 2024-09-07 01:15 | XR_ITS ---
Examination: Retroperitoneal ultrasound, complete Technique: Multiple high resolution grayscale images of the retroperitoneum obtained, including kidneys and bladder. Exam date and time:September 07, 2024 0126 hrs. Indications: Acute renal insufficiency superimposed on chronic kidney disease this week Findings: Right kidney 9.7 x 4.0 x 4.7 cm cortex 1.1 cm Left kidney 11.8 x 5.4 x 4.6 cm renal cortex 1.9 cm Mild left hydronephrosis No bladder mass Bladder prevoid volume 160 cc unable to void Incidental note mild ascites Impression: Mild left hydronephrosis
[2024-09-07] MEDS: CITRIC ACID/SODIUM CITR 15 ML UDC (BICITRA) 30 ML PO ×3 (02:12→20:27)
[2024-09-07] MEDS: ATORVASTATIN CALCIUM 10 MG TABLET 20 MG PO ×2 (02:13→20:26)
--- NOTE | 2024-09-07 02:42 | PRELIM_ITS ---
Renal/Retroperitoneal ultrasound. September 07, 2024 0126 hours Clinical history: ARIK on CKD Findings: Right: The right kidney measures 9.7 x 4 x 4.7 cm, evaluation is limited due to overlying bowel gas. The corticomedullary differentiation is maintained. Left: The left kidney measures 11.8 x 5.4 x 4.6 cm. There is mild hydronephrosis. There is no renal calculus. The corticomedullary differentiation is maintained. The urinary bladder is unremarkable. The pre void volume measures 168.64 mL. Bilateral ureteric jets are demonstrated. The patient is unable to void. There is mild ascites around the liver and spleen. Impression: Mild left hydronephrosis. Evaluation of the right kidney is limited due to overlying bowel gas. Mild ascites as described. Report Electronically Signed By: Ti Luna 09/07/2024 2:40:29 AM [EST]
[2024-09-07 04:00] VITALS: BP 134/92; PULSE 93; RESP 16; TEMP 36.5; O2SAT 97
[2024-09-07] MEDS: HEPARIN SOD INJ 5000 UNIT/ML VIAL SC ×2 (05:10→16:53)
[2024-09-07] MEDS: prednisoLONE OP SUSP 1% 5 ML BTL 1 DROP RIGHT EYE ×4 (05:11→20:27)
[2024-09-07] MEDS: OFLOXACIN OP SOL 0.3% 5 ML BTL 1 DROP RIGHT EYE ×4 (05:12→20:28)
[2024-09-07 05:53] LABS: Basophils % (Auto) 0 % (0-2.5); Eosinophils # (Auto) 0.1 Thou/mm3 (0.0-0.5); Eosinophils % (Auto) 1 % (0-10); Hematocrit 21.7 % (36.0-46.0); Immature Granulocytes % (Auto) 0 % (0-0); Immature Granulocytes Auto 0.03 Thou/mm3 (0.00-0.00); Lymphocytes # (Auto) 2.8 Thou/mm3 (1.0-4.8); Lymphocytes % (Auto) 40 % (10-50); Mean Corpuscular HGB Conc 33.6 g/dl (31.0-37.0); Mean Corpuscular Hemoglobin 31.6 pg (25.0-35.0); Mean Corpuscular Volume 94 fL (80-100); Monocytes # (Auto) 0.4 Thou/mm3 (0.0-0.8); Monocytes % (Auto) 5 % (0-12); Neutrophils # (Auto) 3.7 Thou/mm3 (1.8-7.7); Neutrophils % (Auto) 53 % (37-80); Nucleated Red Blood Cell % 0 /100 WBC (0); Platelet Count 181 Thou/mm3 (140-440); RDW Standard Deviation 47.7 fL (36.4-46.3); Red Blood Count 2.31 Miln/mm3 (4.00-5.20); White Blood Count 6.9 Thou/mm3 (3.6-11.0)
[2024-09-07 06:11] LABS: Partial Thromboplastin Time 32.2 Seconds (22.0-36.0)
[2024-09-07 06:20] LABS: Hemoglobin 7.3 g/dL (12.0-16.0)
[2024-09-07 06:36] LABS: Alanine Aminotransferase 50 U/L (10-49); Albumin/Globulin Ratio 1.1 (1.2-2.2); Alkaline Phosphatase 120 U/L (46-116); Anion Gap 11 (7-16); Aspartate Amino Transferase 57 U/L (0-34); BUN/Creatinine Ratio 14 Ratio (12-20); Bilirubin,Total 0.4 mg/dL (0.3-1.2); Blood Urea Nitrogen 58 mg/dL (9-23); Calcium 8.1 mg/dL (8.3-10.6); Calcium (Corrected) 8.9 mg/dL (8.5-10.1); Carbon Dioxide 18.2 mMol/L (20.0-31.0); Cardiac Risk Estimate 2.4 RATIO (3.7-5.6); Chloride 111 mMol/L (98-107); Cholesterol 106 mg/dL (132-200); Creatinine (Component) 4.1 mg/dL (0.6-1.3); Estimated Creatinine Clearance 12.8 mL/min (>60); Globulin 2.7 gm/dL (2.3-3.5); Glucose 94 mg/dL (74-106); HDL Cholesterol 45 mg/dL (40-60); LDL Cholesterol,Calculated 36 mg/dL (0-130); Magnesium 1.7 mg/dL (1.6-2.6); Osmolality,Calculated 295 (275-295); Phosphorous 4.9 mg/dL (2.4-5.1); Potassium 4.8 mMol/L (3.4-5.1); Sodium 140 mMol/L (136-145); Thyroid Stimulating Hormone 1.36 uIU/mL (0.55-4.78); Total Protein 5.7 gm/dL (5.7-8.2); Triglycerides 124 mg/dL (30-150); eGFR 12 See Note
[2024-09-07 06:42] LABS: Glucose Estimated Average 143 mg/dL (80-131); Hemoglobin A1C 6.6 % Hgb (4.8-6.0)
[2024-09-07 08:00] VITALS: BP 159/88; PULSE 101; RESP 19; TEMP 36.7; O2SAT 91
[2024-09-07] MEDS: PANTOPRAZOLE 40 MG TABLET PO (09:14)
[2024-09-07] MEDS: SEVELAMER CARBONATE 800 MG TABLET PO ×3 (09:14→16:52)
[2024-09-07 12:00] VITALS: BP 134/84; PULSE 104; RESP 18; TEMP 35.8; O2SAT 98
--- NOTE | 2024-09-07 12:36 | ESPR_ITS ---
Documentation for date of: 09/07/24 Subjective Subjective Interval history: Patient was seen and examined at bedside. No acute overnight events. Patient reports no complaints today. Her creatinine has improved slightly from 4.5-4.1 today. Will continue IV fluids. Ultrasound of kidneys showed bilateral hydronephrosis. Will continue current management and monitor patient. Exam Vital Signs Temp Pulse Resp BP Pulse Ox O2 Del Method 98.0 F 101 H 19 159/88 H 91 L Room Air 09/07/24 08:00 09/07/24 08:00 09/07/24 08:00 09/07/24 08:00 09/07/24 08:00 09/07/24 08:00 Narrative Exam Gen: Well-developed and well-nourished elderly female. HEENT: NCAT, PERRLA, EOMI, MMM, anicteric conjunctivae, poor dentition, right eye covered with postop patch. CVS: normal S1 and S2. RRR. Systolic murmur over aortic area. Resp: CTA B/L. No rhonchi, rales, crackles or wheezing. Abd: soft, non-tender, non-distended. BS+ in all 4 quadrants. MSK: Good ROM in BUE & BLE. No edema or rash. Neuro: CN II-XII grossly intact. Strength 5/5 in BUE & BLE. Alert and oriented x3. Psych: appropriate mood and affect. Objective Labs 09/07/24 05:00 09/07/24 05:03 Labs: Laboratory Results - last 24 hr 09/06/24 09/07/24 09/07/24 16:16 05:00 05:03 WBC 6.9 RBC 2.31 L Hgb 7.3 L Hct 21.7 L* MCV 94 MCH 31.6 MCHC 33.6 RDW Std Deviation 47.7 H Plt Count 181 Neut % (Auto) 53 Lymph % (Auto) 40 [place] % (Auto) 5 Eos % (Auto) 1 Baso % (Auto) 0 Neut # (Auto) 3.7 Lymph # (Auto) 2.8 [place] # (Auto) 0.4 Eos # (Auto) 0.1 Baso # (Auto) 0.0 Immature Gran # (Auto) 0.03 H Absolute Nucleated RBC 0.00 Immature Gran % 0 Nucleated RBC % 0 PT 11.0 INR 1.0 APTT 32.2 Sodium 140 Potassium 4.8 Chloride 111 H Carbon Dioxide 18.2 L Anion Gap 11 BUN 58 H Creatinine 4.1 H* Estim Creat Clear Calc 12.8 L eGFR 12 L* BUN/Creatinine Ratio [address] Glu mg/dL 143 H Hemoglobin A1c 6.6 H Calculated Osmolality 295 Calcium 8.1 L Corrected Calcium 8.9 Phosphorus 4.9 Magnesium 1.7 Total Bilirubin 0.4 AST 57 H ALT 50 H Alkaline Phosphatase 120 H D Total Protein 5.7 Albumin 3.0 L Globulin 2.7 Albumin/Globulin Ratio 1.1 L Triglycerides 124 Cholesterol 106 L LDL Cholesterol, Calc 36 HDL Cholesterol 45 Cholesterol/HDL Ratio 2.4 L TSH 1.36 Ur Collection Type Clean Catch Urine Color Yellow Urine Clarity Hazy Urine pH 6.5 Ur Specific [place] 1.017 Urine Protein 3+ A Urine Glucose (UA) 4+ A Urine Ketones Negative Urine Blood 2+ A Urine Nitrite Negative Urine Bilirubin Negative Urine Urobilinogen (Auto) Negative Ur Leukocyte Esterase Negative Urine RBC 3 Urine WBC 6 H Ur Squamous Epith Cells 11 H Urine Bacteria Rare Quality Measures Quality Measures VTE prophylaxis (Heparin) Assessment & Plan Assessment Current Active Medications: Generic Name Dose Route Start Last Admin Trade Name Freq PRN Reason Stop Dose Admin Acetaminophen 650 mg 09/06/24 16:05 09/06/24 19:40 Acetaminophen 325 Mg Tablet PO 10/06/24 16:04 650 mg Q6H PRN Administration Fever >100 or pain 1-3 Atorvastatin Calcium 20 mg 09/06/24 21:00 09/07/24 02:13 Atorvastatin Calcium 10 Mg Tablet PO 10/06/24 20:59 20 mg HS DANIEL Administration Benzonatate 100 mg 09/06/24 16:16 Benzonatate 100 Mg Capsule PO 10/06/24 16:15 Q12H PRN cough Protocol Citric Acid/Sodium Citrate 30 ml 09/06/24 21:00 09/07/24 09:13 Citric Acid/Sodium Citr 15 Ml Udc (Bicitra) PO 10/06/24 20:59 30 ml BID DANIEL Administration Dextrose 25 ml 09/06/24 16:05 Dextrose 50%-Water Inj 50 Ml Syringe IV 10/06/24 16:04 Q15MIN PRN BG 50-70 responsive npo pt Dextrose 50 ml 09/06/24 16:05 Dextrose 50%-Water Inj 50 Ml Syringe IV 10/06/24 16:04 Q15MIN PRN BG <50 OR BG <70 & pt unresponsive Glucagon 1 mg 09/06/24 16:05 Glucagon Inj 1 Mg Vial IM Q15MIN PRN BG <70, and no IV access Heparin Sodium (Porcine) 5,000 unit 09/06/24 16:15 09/07/24 05:10 Heparin Sod Inj 5000 Unit/Ml Vial SC 09/20/24 16:14 5,000 unit Q12H DANIEL Administration Hydroxyzine HCl 10 mg 09/06/24 21:00 09/07/24 02:14 Hydroxyzine Hcl 10 Mg Tablet PO 10/06/24 20:59 Not Given HS DANIEL Insulin Human Lispro 0 unit 09/06/24 17:00 09/07/24 11:58 Insulin Lispro (Admelog) 1 Unit/0.01 Ml Unit SC 10/06/24 16:59 Not Given AC DANIEL Protocol Labetalol HCl 2.5 mg 09/06/24 20:29 Labetalol Inj 5 Mg/Ml Vial 20 Ml IVP 10/06/24 16:38 Q4H PRN SBP > 170 Ofloxacin 1 drop 09/06/24 17:00 09/07/24 12:01 Ofloxacin Op Marjorie 0.3% 5 Ml Btl RIGHT EYE 09/15/24 16:59 1 drop QID DANIEL Administration Ondansetron HCl 4 mg 09/06/24 16:05 Ondansetron Inj 2 Mg/Ml Inj 2 Ml IV 10/06/24 16:04 Q6H PRN NAUSEA OR VOMITING Protocol Pantoprazole Sodium 40 mg 09/07/24 09:00 09/07/24 09:14 Pantoprazole 40 Mg Tablet PO 10/07/24 08:59 40 mg QDAY DANIEL Administration Prednisolone Acetate 1 drop 09/06/24 17:00 09/07/24 12:00 Prednisolone Op Susp 1% 5 Ml Btl RIGHT EYE 09/15/24 16:59 1 drop QID DANIEL Administration Sennosides 1 tab 09/06/24 16:05 Senna Tablet PO 10/06/24 16:04 QDAY PRN constipation Protocol Sevelamer Carbonate 800 mg 09/07/24 08:00 09/07/24 12:03 Sevelamer Carbonate 800 Mg Tablet PO 10/07/24 07:59 800 mg TIDWM DANIEL Administration Plan Catrina is a 53 y/o female with uncontrolled insulin-dependent diabetes type 2, CKD stage IV, hypertension who is admitted for ARIK. #ARIK. #History of CKD stage IV. Patient has ARIK at this time, likely prerenal, but patient may also of gotten contrast yesterday, unlikely during ophthalmologic procedure We will see how patient recovers if patient does not recover and goes into acute renal failure may need dialysis Status post 1 L bolus of LR GFR currently [address] Pedraza nephrology Creatinine seems to be 2.3 at baseline Plan: ? Nephrology consulted, appreciate recs ? Strict JOSE's ? Avoid nephrotoxic agents ? Renally dose medicines ? LR 100 cc an hour ? Urine lytes and creatinine #History of hypertension Plan: ? Labetalol 10 mg for systolic blood pressure above 170 with holding parameters ? Holding home lisinopril in setting of ARIK #History of insulin-dependent diabetes type 2 Seems to be uncontrolled Takes 6 units of Basaglar at home Plan: ? SSI ? Hypoglycemic protocol in place ? Carb consistent low diet ? Blood glucose checks with meals #Status post vitrectomy postoperative day 1 Patient said she got procedure for a bleeding right eye Patient does have eyepatch and right eye Plan: ? Resumed home prednisolone eyedrops 1 drop in right eye 4 times a day ? Resumed home ofloxacin eyedrops 1 drop in right eye 4 times a day Health Maintenance: Disposition: Med/Surg DVT prophylaxis: Heparin q12h GI prophylaxis: Protonix Diet: Carb low CODE STATUS:Full Plan of care discussed with attending Dr. Sweeney. Moe Meraz MD, PGY 2. Disclaimer: This note was dictated by speech recognition. Minor errors in polysomnographic tech may be present due to voice recognition software.
--- NOTE | 2024-09-07 13:58 | ESPR_ITS ---
Documentation for date of: 09/07/24 Subjective Subjective Interval history: The patient is a 53-year-old female with significant past medical history of uncontrolled DM 2, CKD stage IV, hypertension was sent by powder hand Dr. Pedraza due to worsening of renal function labs. The patient underwent right eye vitrectomy at [facility] by safety and security manager Dr. Johnson. The patient admitted having chronic cough, but denied any chest pain or SOB, fever or chills, he admitted occasional diarrhea as she was recently diagnosed with Crohn's disease. In the ED her vitals were stable with blood pressure 139/74, pulse rate 112 saturating 99% on room air. The patient's last labs revealed hemoglobin 7.5, hematocrit 22.0, sodium 139, potassium 4.9, chloride 111, bicarb 18.5, BUN 65, creatinine 4.5, EGFR 11, blood sugar 175, corrected calcium 8.7, phosphorus 5.5, mild transaminitis with AST/ALT 83/66, ALP 142, UA revealed protein 3+, glucose 4+, blood 2+, WBC 6, bacteria rare. PMH: As mentioned above SHX: Left breast biopsy, tubal ligation, right I be directed to me on 09/05/2024 Social history: Remote history of a smoking around 10 pack years, former alcohol use quit 10 years ago, used to drink 1 bottle of vodka daily, denies any recreational drug use Family history: Diabetes and heart disease in both parents and sister, ESRD on sister on HD Medications: Insulin glargine 1 two 6 unit daily, atorvastatin 20 Mg at bedtime, empagliflozin 25 mg daily, insulin glargine, lisinopril 2.5 Mg daily, hydroxyzine 10 Mg twice daily as needed for anxiety, Zofran 4 mg as needed, Coty-Baldev, vitamin D2, ofloxacin ophthalmic solution 0.3% 1 drop 4 times daily, prednisone acetate 1% 1 drop 4 times daily. Allergies: No known allergies The patient was given 1 L IV LR bolus and started on 100 cc/h of LR and admitted to the floors. Nephrology consultation was done for further management of ARIK on CKD stage IV and electrolyte abnormalities. 09/07/2024: The patient was interviewed and examined at the bedside this morning. She reported doing well. Her vitals were fairly stable with heart rate 104. Hemoglobin 7.3, hematocrit 21.7, sodium 140, potassium 4.8, chloride 211, bicarb 18.2, BUN 58, creatinine 4.1, GFR 12. Mild transaminitis seen. Urine electrolytes and bilateral renal ultrasound was ordered that was significant for mild left hydronephrosis. We will continue with LR 100 cc/h and continue to monitor renal panel. Exam Vital Signs Temp Pulse Resp BP Pulse Ox O2 Del Method 96.4 F L 104 H 18 134/84 H 98 Room Air 09/07/24 12:00 09/07/24 12:00 09/07/24 12:09/07/24 12:09/07/24 12:09/07/24 12:00 Narrative Exam General: No acute distress, Alert and Oriented x 3 HEENT: Moist mucous membranes, oropharynx clear, right eye patch present Neck: Supple, No masses, No JVD CVS: S1S2 Regular rate and rhythm, No murmurs, rubs or gallops Lungs: Clear to auscultation with no accessory use, no wheeze no rhonchi Abd: Soft, NT/ND, +BS, no organomegaly Ext: No lower limb edema, warm and well perfused Skin: No rash Psych: Appropriate mood and affect Objective Labs 09/08/24 05:44 09/08/24 05:44 Labs: Laboratory Results - last 24 hr 09/06/24 09/07/24 09/07/24 16:16 05:00 05:03 WBC 6.9 RBC 2.31 L Hgb 7.3 L Hct 21.7 L* MCV 94 MCH 31.6 MCHC 33.6 RDW Std Deviation 47.7 H Plt Count 181 Neut % (Auto) 53 Lymph % (Auto) 40 [place] % (Auto) 5 Eos % (Auto) 1 Baso % (Auto) 0 Neut # (Auto) 3.7 Lymph # (Auto) 2.8 [place] # (Auto) 0.4 Eos # (Auto) 0.1 Baso # (Auto) 0.0 Immature Gran # (Auto) 0.03 H Absolute Nucleated RBC 0.00 Immature Gran % 0 Nucleated RBC % 0 PT 11.0 INR 1.0 APTT 32.2 Sodium 140 Potassium 4.8 Chloride 111 H Carbon Dioxide 18.2 L Anion Gap 11 BUN 58 H Creatinine 4.1 H* Estim Creat Clear Calc 12.8 L eGFR 12 L* BUN/Creatinine Ratio [address] Glu mg/dL 143 H Hemoglobin A1c 6.6 H Calculated Osmolality 295 Calcium 8.1 L Corrected Calcium 8.9 Phosphorus 4.9 Magnesium 1.7 Total Bilirubin 0.4 AST 57 H ALT 50 H Alkaline Phosphatase 120 H D Total Protein 5.7 Albumin 3.0 L Globulin 2.7 Albumin/Globulin Ratio 1.1 L Triglycerides 124 Cholesterol 106 L LDL Cholesterol, Calc 36 HDL Cholesterol 45 Cholesterol/HDL Ratio 2.4 L TSH 1.36 Ur Collection Type Clean Catch Urine Color Yellow Urine Clarity Hazy Urine pH 6.5 Ur Specific [place] 1.017 Urine Protein 3+ A Urine Glucose (UA) 4+ A Urine Ketones Negative Urine Blood 2+ A Urine Nitrite Negative Urine Bilirubin Negative Urine Urobilinogen (Auto) Negative Ur Leukocyte Esterase Negative Urine RBC 3 Urine WBC 6 H Ur Squamous Epith Cells 11 H Urine Bacteria Rare Quality Measures Quality Measures VTE prophylaxis (Heparin) Assessment & Plan Assessment Current Active Medications: Generic Name Dose Route Start Last Admin Trade Name Freq PRN Reason Stop Dose Admin Acetaminophen 650 mg 09/06/24 16:05 09/06/24 19:40 Acetaminophen 325 Mg Tablet PO 10/06/24 16:04 650 mg Q6H PRN Administration Fever >100 or pain 1-3 Atorvastatin Calcium 20 mg 09/06/24 21:00 09/07/24 02:13 Atorvastatin Calcium 10 Mg Tablet PO 10/06/24 20:59 20 mg HS DANIEL Administration Benzonatate 100 mg 09/06/24 16:16 Benzonatate 100 Mg Capsule PO 10/06/24 16:15 Q12H PRN cough Protocol Citric Acid/Sodium Citrate 30 ml 09/06/24 21:00 09/07/24 09:13 Citric Acid/Sodium Citr 15 Ml Udc (Bicitra) PO 10/06/24 20:59 30 ml BID DANIEL Administration Dextrose 25 ml 09/06/24 16:05 Dextrose 50%-Water Inj 50 Ml Syringe IV 10/06/24 16:04 Q15MIN PRN BG 50-70 responsive npo pt Dextrose 50 ml 09/06/24 16:05 Dextrose 50%-Water Inj 50 Ml Syringe IV 10/06/24 16:04 Q15MIN PRN BG <50 OR BG <70 & pt unresponsive Glucagon 1 mg 09/06/24 16:05 Glucagon Inj 1 Mg Vial IM Q15MIN PRN BG <70, and no IV access Heparin Sodium (Porcine) 5,000 unit 09/06/24 16:15 09/07/24 05:10 Heparin Sod Inj 5000 Unit/Ml Vial SC 09/20/24 16:14 5,000 unit Q12H DANIEL Administration Hydroxyzine HCl 10 mg 09/06/24 21:00 09/07/24 02:14 Hydroxyzine Hcl 10 Mg Tablet PO 10/06/24 20:59 Not Given HS DANIEL Insulin Human Lispro 0 unit 09/06/24 17:00 09/07/24 11:58 Insulin Lispro (Admelog) 1 Unit/0.01 Ml Unit SC 10/06/24 16:59 Not Given AC DANIEL Protocol Labetalol HCl 2.5 mg 09/06/24 20:29 Labetalol Inj 5 Mg/Ml Vial 20 Ml IVP 10/06/24 16:38 Q4H PRN SBP > 170 Ofloxacin 1 drop 09/06/24 17:00 09/07/24 12:01 Ofloxacin Op Marjorie 0.3% 5 Ml Btl RIGHT EYE 09/15/24 16:59 1 drop QID DANIEL Administration Ondansetron HCl 4 mg 09/06/24 16:05 Ondansetron Inj 2 Mg/Ml Inj 2 Ml IV 10/06/24 16:04 Q6H PRN NAUSEA OR VOMITING Protocol Pantoprazole Sodium 40 mg 09/07/24 09:00 09/07/24 09:14 Pantoprazole 40 Mg Tablet PO 10/07/24 08:59 40 mg QDAY DANIEL Administration Prednisolone Acetate 1 drop 09/06/24 17:00 09/07/24 12:00 Prednisolone Op Susp 1% 5 Ml Btl RIGHT EYE 09/15/24 16:59 1 drop QID DANIEL Administration Sennosides 1 tab 09/06/24 16:05 Senna Tablet PO 10/06/24 16:04 QDAY PRN constipation Protocol Sevelamer Carbonate 800 mg 09/07/24 08:00 09/07/24 12:03 Sevelamer Carbonate 800 Mg Tablet PO 10/07/24 07:59 800 mg TIDWM DANIEL Administration Plan The patient is a 53-year-old female with significant past medical history of uncontrolled DM 2, CKD stage IV, hypertension was sent by powder hand Dr. Pedraza due to worsening of renal function labs. Nephrology consultation was done for further management of ARIK on CKD stage IV and electrolyte abnormalities. #ARIK on stage IV CKD Likely prerenal but denies poor appetite or low p.o. intake Presented with creatinine 4.3, BUN 65 and GFR 11, baseline creatinine around 2.1, GFR in 20s Patient received 1 L LR bolus in the ED 09/07/2024: Creatinine improved to 4.1, and EGFR improved to 12 -Continue on LR 100 cc/h -Avoid nephrotoxic drugs -Renal dose medications -Ordered urine electrolytes -Continue to monitor renal panel daily in the a.m. - renal BI revealed mild left hydronephrosis #RTA type IV Secondary to chronic kidney disease Presented with hyperkalemic and hyperchloremic metabolic acidosis with chloride 111, potassium 4.9 and bicarb 18.5 -Started on Bicitra 30 mL twice daily as it has mortality benefit when bicarb level is less than 22 -Continue to monitor daily renal panel #Hyperphosphatemia, improved Secondary to CKD Presented with phosphorus of 5.5 -Continue on sevelamer 800 Mg 3 times daily with meals -Continue to monitor phosphorus level daily in the a.m. #Primary hypertension Blood pressure in the range of 150s-160s/80s-to 90s -On IV labetalol 2.5 Mg every 4 hourly as needed for SBP 170 with holding parameters -Continue to hold home lisinopril in the setting of ARIK #Insulin-dependent diabetes mellitus type 2 #Status post vitrectomy -Management deferred to primary hospitalist team Thank you for your opportunity to participate nephrology team in this patient care. The patient's management plan was discussed with my attending physician MD Albino Rios MD, PGY2 Attending Provider Attestation/Addendum Patient seen and examined with resident physician Dr. Gauthier. Note reviewed, agree with findings and recommendations. Patient with advanced CKD stage IV diabetic nephropathy has been following up with me for the last couple of years. In June her GFR was 18. Currently comes with a GFR of 11. Admits to decreased p.o. intake. Will continue with fluids. If no improvement will plan for renal replacement therapy. Patient agreed. She also has a severe diabetic retinopathy-under the care of an safety and security manager in [place]. Recently had retinal detachment and surgery. Legally blind. Renal Prognosis poor. Today her creatinine seems to be tad better. GFR 12. On gentle IV fluids. Gave bicarbonate. No need for emergency dialysis.
[2024-09-07 16:00] VITALS: BP 132/80; PULSE 96; RESP 18; TEMP 36.1; O2SAT 98
[2024-09-07] MEDS: RINGERS LACTATED 1000 ML 1,000 ML 100 ML IV (16:53)
[2024-09-07 20:00] VITALS: BP 151/93; PULSE 102; RESP 17; TEMP 36.1; O2SAT 97
[2024-09-07] MEDS: hydrOXYzine HCL 10 MG TABLET PO (20:27)
[2024-09-07] MEDS: BENZONATATE 100 MG CAPSULE PO (23:19)
[2024-09-07] MEDS: ONDANSETRON INJ 2 MG/ML INJ 2 ML 4 MG IV (23:27)
[2024-09-08] VITALS: BP 160/97; PULSE 97; RESP 18; TEMP 36.1; O2SAT 97
[2024-09-08 04:00] VITALS: BP 150/86; PULSE 110; RESP 18; TEMP 36.1; O2SAT 91
[2024-09-08] MEDS: RINGERS LACTATED 1000 ML 1,000 ML 100 ML IV ×2 (04:03→09:21)
[2024-09-08] MEDS: HEPARIN SOD INJ 5000 UNIT/ML VIAL SC ×2 (04:03→17:31)
[2024-09-08] MEDS: OFLOXACIN OP SOL 0.3% 5 ML BTL 1 DROP RIGHT EYE ×4 (05:15→20:42)
[2024-09-08] MEDS: prednisoLONE OP SUSP 1% 5 ML BTL 1 DROP RIGHT EYE ×4 (05:15→20:42)
[2024-09-08 06:07] LABS: Basophils % (Auto) 0 % (0-2.5); Eosinophils % (Auto) 0 % (0-10); Hematocrit 20.7 % (36.0-46.0); Immature Granulocytes % (Auto) 0 % (0-0); Immature Granulocytes Auto 0.03 Thou/mm3 (0.00-0.00); Lymphocytes # (Auto) 2.1 Thou/mm3 (1.0-4.8); Lymphocytes % (Auto) 31 % (10-50); Mean Corpuscular HGB Conc 33.8 g/dl (31.0-37.0); Mean Corpuscular Hemoglobin 31.1 pg (25.0-35.0); Mean Corpuscular Volume 92 fL (80-100); Monocytes # (Auto) 0.4 Thou/mm3 (0.0-0.8); Monocytes % (Auto) 6 % (0-12); Neutrophils # (Auto) 4.3 Thou/mm3 (1.8-7.7); Neutrophils % (Auto) 63 % (37-80); Nucleated Red Blood Cell % 0 /100 WBC (0); Platelet Count 170 Thou/mm3 (140-440); RDW Standard Deviation 47.8 fL (36.4-46.3); Red Blood Count 2.25 Miln/mm3 (4.00-5.20); White Blood Count 6.9 Thou/mm3 (3.6-11.0)
[2024-09-08 06:42] LABS: Alanine Aminotransferase 36 U/L (10-49); Albumin, Serum 2.8 gm/dL (3.5-5.0); Alkaline Phosphatase 108 U/L (46-116); Anion Gap 8 (7-16); Aspartate Amino Transferase 41 U/L (0-34); BUN/Creatinine Ratio 14 Ratio (12-20); Bilirubin,Total 0.5 mg/dL (0.3-1.2); Blood Urea Nitrogen 54 mg/dL (9-23); Calcium 8.2 mg/dL (8.3-10.6); Calcium (Corrected) 9.2 mg/dL (8.5-10.1); Carbon Dioxide 22.1 mMol/L (20.0-31.0); Chloride 111 mMol/L (98-107); Creatinine (Component) 3.8 mg/dL (0.6-1.3); Estimated Creatinine Clearance 13.6 mL/min (>60); Globulin 2.7 gm/dL (2.3-3.5); Glucose 102 mg/dL (74-106); Magnesium 1.6 mg/dL (1.6-2.6); Osmolality,Calculated 295 (275-295); Phosphorous 4.2 mg/dL (2.4-5.1); Potassium 5.4 mMol/L (3.4-5.1); Sodium 141 mMol/L (136-145); Total Protein 5.5 gm/dL (5.7-8.2); eGFR 13 See Note
[2024-09-08 08:00] VITALS: BP 142/87; PULSE 108; RESP 18; TEMP 36.2; O2SAT 94
[2024-09-08] MEDS: CITRIC ACID/SODIUM CITR 15 ML UDC (BICITRA) 30 ML PO ×2 (09:20→20:47)
[2024-09-08] MEDS: PANTOPRAZOLE 40 MG TABLET PO (09:20)
[2024-09-08] MEDS: SEVELAMER CARBONATE 800 MG TABLET PO ×3 (09:20→17:28)
--- NOTE | 2024-09-08 10:48 | ESPR_ITS ---
Documentation for date of: 09/08/24 Subjective Subjective Interval history: patient is a 53-year-old female with significant past medical history of uncontrolled DM 2, CKD stage IV, hypertension was sent by equipment scheduler Dr. Pedraza due to worsening of renal function labs. The patient underwent right eye vitrectomy at [facility] by civil engineer in training Dr. Johnson. The patient admitted having chronic cough, but denied any chest pain or SOB, fever or chills, he admitted occasional diarrhea as she was recently diagnosed with Crohn's disease. In the ED her vitals were stable with blood pressure 139/74, pulse rate 112 saturating 99% on room air. The patient's last labs revealed hemoglobin 7.5, hematocrit 22.0, sodium 139, potassium 4.9, chloride 111, bicarb 18.5, BUN 65, creatinine 4.5, EGFR 11, blood sugar 175, corrected calcium 8.7, phosphorus 5.5, mild transaminitis with AST/ALT 83/66, ALP 142, UA revealed protein 3+, glucose 4+, blood 2+, WBC 6, bacteria rare. The patient was given 1 L IV LR bolus and started on 100 cc/h of LR and admitted to the floors. Nephrology consultation was done for further management of ARIK on CKD stage IV and electrolyte abnormalities. 09/07/2024: The patient was interviewed and examined at the bedside this morning. She reported doing well. Her vitals were fairly stable with heart rate 104. Hemoglobin 7.3, hematocrit 21.7, sodium 140, potassium 4.8, chloride 211, bicarb 18.2, BUN 58, creatinine 4.1, GFR 12. Mild transaminitis seen. Urine electrolytes and bilateral renal ultrasound was ordered that was significant for mild left hydronephrosis. We will continue with LR 100 cc/h and continue to monitor renal panel. 09/08/2024 comfortable. BUN/ Cr tad better. 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 Not a PD candidate. Her sister on dialysis. She is very sleptical. Time spnet 30min. If Cr still elevated- she agreed for HD in am. She has progressive D. Nephropathy Review of Systems Review of Systems Narrative Review of Systems: legally blind. Denies cp, sob. Decreased appetite Exam Vital Signs Temp Pulse Resp BP Pulse Ox O2 Del Method 36.2 C 108 H 18 142/87 H 94 L Room Air 02/16/25 08:00 09/08/24 08:00 09/08/24 08:00 09/08/24 08:00 09/08/24 08:00 09/08/24 08:00 Narrative Exam General: No acute distress, Alert and Oriented x 3 HEENT: Moist mucous membranes. legally blind Neck: Supple, No masses, No JVD CVS: S1S2 Regular rate and rhythm, No murmurs, rubs or gallops Lungs: Clear to auscultation with no accessory use, no wheeze no rhonchi Abd: Soft, NT/ND, +BS, no organomegaly Ext: No lower limb edema, warm and well perfused Skin: No rash Psych: Appropriate mood and affect Objective Labs 09/08/24 05:44 09/08/24 11:40 Labs: Laboratory Results - last 24 hr 09/08/24 09/08/24 05:44 08:07 WBC 6.9 RBC 2.25 L Hgb 7.0 L Hct 20.7 L* MCV 92 MCH 31.1 MCHC 33.8 RDW Std Deviation 47.8 H Plt Count 170 Neut % (Auto) 63 Lymph % (Auto) 31 [place] % (Auto) 6 Eos % (Auto) 0 Baso % (Auto) 0 Neut # (Auto) 4.3 Lymph # (Auto) 2.1 [place] # (Auto) 0.4 Eos # (Auto) 0.0 Baso # (Auto) 0.0 Immature Gran # (Auto) 0.03 H Absolute Nucleated RBC 0.00 Immature Gran % 0 Nucleated RBC % 0 Sodium 141 Potassium 5.4 H D Chloride 111 H Carbon Dioxide 22.1 Anion Gap 8 BUN 54 H Creatinine 3.8 H Estim Creat Clear Calc 13.6 L eGFR 13 L* BUN/Creatinine Ratio 14 Glucose 102 Calculated Osmolality 295 Calcium 8.2 L Corrected Calcium 9.2 Phosphorus 4.2 Magnesium 1.6 Total Bilirubin 0.5 AST 41 H ALT 36 Alkaline Phosphatase 108 Total Protein 5.5 L Albumin 2.8 L Globulin 2.7 Albumin/Globulin Ratio 1.0 L Crossmatch See Detail Assessment & Plan Additional Assessment & Plan Additional Plan: patient is a 53-year-old female with significant past medical history of uncontrolled DM 2, CKD stage IV, hypertension was sent by equipment scheduler Dr. Pedraza due to worsening of renal function labs. Nephrology consultation was done for further management of ARIK on CKD stage IV and electrolyte abnormalities. #ARIK on stage IV CKD Likely prerenal but denies poor appetite or low p.o. intake Presented with creatinine 4.3, BUN 65 and GFR 11, baseline creatinine around 2.1, GFR in 20s Patient received 1 L LR bolus in the ED 09/08/2024: Creatinine improved to 3.8, and EGFR improved to 13 -dc LR 100 cc/h -Avoid nephrotoxic drugs -Renal dose medications -Ordered urine electrolytes -Continue to monitor renal panel daily in the a.m. -US renal BI revealed mild left hydronephrosis will decide on HD in am #RTA type IV Secondary to chronic kidney disease Presented with hyperkalemic and hyperchloremic metabolic acidosis with chloride 111, potassium 4.9 and bicarb 18.5 -Started on Bicitra 30 mL twice daily as it has mortality benefit when bicarb level is less than 22 -Continue to monitor daily renal panel #Hyperphosphatemia, improved Secondary to CKD Presented with phosphorus of 5.5 -Continue on sevelamer 800 Mg 3 times daily with meals -Continue to monitor phosphorus level daily in the a.m. #Primary hypertension Blood pressure in the range of 150s-160s/80s-to 90s -On IV labetalol 2.5 Mg every 4 hourly as needed for SBP 170 with holding parameters -Continue to hold home lisinopril in the setting of ARIK #Insulin-dependent diabetes mellitus type 2 #Status post vitrectomy -Management deferred to primary hospitalist team
[2024-09-08] MEDS: BENZONATATE 100 MG CAPSULE PO ×2 (11:10→23:53)
[2024-09-08] MEDS: SOD POLYSTYRENE SULFON SUSP 15 GM/60 ML BTL PO (11:10)
[2024-09-08] MEDS: INSULIN HUM REGULAR 1 UNIT/0.01 ML (PER UNIT) 5 UNIT IV (11:21)
[2024-09-08] MEDS: DEXTROSE 50%-WATER INJ 50 ML SYRINGE IV (11:22)
[2024-09-08 12:00] VITALS: BP 149/87; PULSE 107; RESP 18; TEMP 35.9; O2SAT 96
--- NOTE | 2024-09-08 12:10 | PD.RESPRO ---
Documentation for date of: 09/08/24 Subjective Subjective Interval history: Patient was seen and examined at bedside. No acute event events. Her potassium was 5.4 therefore she was given Kayexalate 15 mg and 5 units of insulin with dextrose. Hemoglobin was 7 in the morning, therefore type and screen was ordered. Her creatinine today is 3.8, we will continue current management and monitor patient. Exam Vital Signs Temp Pulse Resp BP Pulse Ox O2 Del Method 97.1 F 108 H 18 142/87 H 94 L Room Air 09/08/24 08:00 09/08/24 08:00 09/08/24 08:00 09/08/24 08:00 09/08/24 08:00 09/08/24 08:00 Narrative Exam Gen: Well-developed and well-nourished elderly female. HEENT: NCAT, PERRLA, EOMI, MMM, anicteric conjunctivae, poor dentition, right eye covered with postop patch. CVS: normal S1 and S2. RRR. Systolic murmur over aortic area. Resp: CTA B/L. No rhonchi, rales, crackles or wheezing. Abd: soft, non-tender, non-distended. BS+ in all 4 quadrants. MSK: Good ROM in BUE & BLE. No edema or rash. Neuro: CN II-XII grossly intact. Strength 5/5 in BUE & BLE. Alert and oriented x3. Psych: appropriate mood and affect. Objective Labs 09/08/24 05:44 09/08/24 05:44 Labs: Laboratory Results - last 24 hr 09/08/24 09/08/24 05:44 08:07 WBC 6.9 RBC 2.25 L Hgb 7.0 L Hct 20.7 L* MCV 92 MCH 31.1 MCHC 33.8 RDW Std Deviation 47.8 H Plt Count 170 Neut % (Auto) 63 Lymph % (Auto) 31 [place] % (Auto) 6 Eos % (Auto) 0 Baso % (Auto) 0 Neut # (Auto) 4.3 Lymph # (Auto) 2.1 [place] # (Auto) 0.4 Eos # (Auto) 0.0 Baso # (Auto) 0.0 Immature Gran # (Auto) 0.03 H Absolute Nucleated RBC 0.00 Immature Gran % 0 Nucleated RBC % 0 Sodium 141 Potassium 5.4 H D Chloride 111 H Carbon Dioxide 22.1 Anion Gap 8 BUN 54 H Creatinine 3.8 H Estim Creat Clear Calc 13.6 L eGFR 13 L* BUN/Creatinine Ratio 14 Glucose 102 Calculated Osmolality 295 Calcium 8.2 L Corrected Calcium 9.2 Phosphorus 4.2 Magnesium 1.6 Total Bilirubin 0.5 AST 41 H ALT 36 Alkaline Phosphatase 108 Total Protein 5.5 L Albumin 2.8 L Globulin 2.7 Albumin/Globulin Ratio 1.0 L Blood Type O Positive Antibody Screen NEGATIVE Crossmatch See Detail Blood Bank Wristband ID Yes Quality Measures Quality Measures VTE prophylaxis (Heparin) Assessment & Plan Assessment Current Active Medications: Generic Name Dose Route Start Last Admin Trade Name Freq PRN Reason Stop Dose Admin Acetaminophen 650 mg 09/06/24 16:05 09/06/24 19:40 Acetaminophen 325 Mg Tablet PO 10/06/24 16:04 650 mg Q6H PRN Administration Fever >100 or pain 1-3 Atorvastatin Calcium 20 mg 09/06/24 21:00 09/07/24 20:26 Atorvastatin Calcium 10 Mg Tablet PO 10/06/24 20:59 20 mg HS DANIEL Administration Benzonatate 100 mg 09/06/24 16:16 09/08/24 11:10 Benzonatate 100 Mg Capsule PO 10/06/24 16:15 100 mg Q12H PRN Administration cough Protocol Citric Acid/Sodium Citrate 30 ml 09/06/24 21:00 09/08/24 09:20 Citric Acid/Sodium Citr 15 Ml Udc (Bicitra) PO 10/06/24 20:59 30 ml BID DANIEL Administration Dextrose 25 ml 09/06/24 16:05 Dextrose 50%-Water Inj 50 Ml Syringe IV 10/06/24 16:04 Q15MIN PRN BG 50-70 responsive npo pt Dextrose 50 ml 09/06/24 16:05 Dextrose 50%-Water Inj 50 Ml Syringe IV 10/06/24 16:04 Q15MIN PRN BG <50 OR BG <70 & pt unresponsive Glucagon 1 mg 09/06/24 16:05 Glucagon Inj 1 Mg Vial IM Q15MIN PRN BG <70, and no IV access Heparin Sodium (Porcine) 5,000 unit 09/06/24 16:15 09/08/24 04:03 Heparin Sod Inj 5000 Unit/Ml Vial SC 09/20/24 16:14 5,000 unit Q12H DANIEL Administration Hydroxyzine HCl 10 mg 09/06/24 21:00 09/07/24 20:27 Hydroxyzine Hcl 10 Mg Tablet PO 10/06/24 20:59 10 mg HS DANIEL Administration Lactated Ringer's 1,000 mls @ 100 mls/hr 09/07/24 14:31 09/08/24 09:21 Lactated Ringers IV 10/07/24 14:30 100 mls/hr .Q10H DANIEL Administration Insulin Human Lispro 0 unit 09/06/24 17:00 09/08/24 11:22 Insulin Lispro (Admelog) 1 Unit/0.01 Ml Unit SC 10/06/24 16:59 Not Given AC DANIEL Protocol Labetalol HCl 2.5 mg 09/06/24 20:29 Labetalol Inj 5 Mg/Ml Vial 20 Ml IVP 10/06/24 16:38 Q4H PRN SBP > 170 Ofloxacin 1 drop 09/06/24 17:00 09/08/24 11:11 Ofloxacin Op Marjorie 0.3% 5 Ml Btl RIGHT EYE 09/15/24 16:59 1 drop QID DANIEL Administration Ondansetron HCl 4 mg 09/06/24 16:05 09/07/24 23:27 Ondansetron Inj 2 Mg/Ml Inj 2 Ml IV 10/06/24 16:04 4 mg Q6H PRN Administration NAUSEA OR VOMITING Protocol Pantoprazole Sodium 40 mg 09/07/24 09:00 09/08/24 09:20 Pantoprazole 40 Mg Tablet PO 10/07/24 08:59 40 mg QDAY DANIEL Administration Prednisolone Acetate 1 drop 09/06/24 17:00 09/08/24 11:11 Prednisolone Op Susp 1% 5 Ml Btl RIGHT EYE 09/15/24 16:59 1 drop QID DANIEL Administration Sennosides 1 tab 09/06/24 16:05 Senna Tablet PO 10/06/24 16:04 QDAY PRN constipation Protocol Sevelamer Carbonate 800 mg 09/07/24 08:00 09/08/24 11:30 Sevelamer Carbonate 800 Mg Tablet PO 10/07/24 07:59 800 mg TIDWM DANIEL Administration Odilon Fritz is a 53 y/o female with uncontrolled insulin-dependent diabetes type 2, CKD stage IV, hypertension who is admitted for ARIK. #ARIK, improving. #History of CKD stage IV. Patient has ARIK at this time, likely prerenal, but patient may also of gotten contrast yesterday, unlikely during ophthalmologic procedure We will see how patient recovers if patient does not recover and goes into acute renal failure may need dialysis Status post 1 L bolus of LR Follows Dr. Pedraza nephrology Creatinine seems to be 2.3 at baseline Plan: ? Nephrology consulted, appreciate recs ? Strict JOSE's ? Avoid nephrotoxic agents ? Renally dose medicines ? LR 100 cc an hour ? Urine lytes and creatinine #Hyperkalemia. Potassium 5.4. Given Kayexalate 15 mg, insulin 5 units with dextrose. #History of hypertension. Plan: ? Labetalol 10 mg for systolic blood pressure above 170 with holding parameters ? Holding home lisinopril in setting of ARIK #History of insulin-dependent diabetes type 2. Seems to be uncontrolled Takes 6 units of Basaglar at home Plan: ? SSI ? Hypoglycemic protocol in place ? Carb consistent low diet ? Blood glucose checks with meals #Status post vitrectomy postoperative day 3. Patient said she got procedure for a bleeding right eye Patient does have eyepatch and right eye Plan: ? Resumed home prednisolone eyedrops 1 drop in right eye 4 times a day ? Resumed home ofloxacin eyedrops 1 drop in right eye 4 times a day Health Maintenance: Disposition: Med/Surg DVT prophylaxis: Heparin q12h GI prophylaxis: Protonix Diet: Carb low CODE STATUS:Full Plan of care discussed with attending Dr. Sweeney. Moe Mreaz MD, PGY 2. Disclaimer: This note was dictated by speech recognition. 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
[2024-09-08 12:24] LABS: Albumin, Serum 2.9 gm/dL (3.5-5.0); Anion Gap 10 (7-16); BUN/Creatinine Ratio 14 Ratio (12-20); Blood Urea Nitrogen 53 mg/dL (9-23); Calcium 8.2 mg/dL (8.3-10.6); Calcium (Corrected) 9.1 mg/dL (8.5-10.1); Carbon Dioxide 22.8 mMol/L (20.0-31.0); Chloride 106 mMol/L (98-107); Creatinine (Component) 3.8 mg/dL (0.6-1.3); Estimated Creatinine Clearance 13.6 mL/min (>60); Glucose 238 mg/dL (74-106); Osmolality,Calculated 299 (275-295); Potassium 5.1 mMol/L (3.4-5.1); Sodium 139 mMol/L (136-145); eGFR 13 See Note
[2024-09-08 16:00] VITALS: BP 153/88; PULSE 108; RESP 17; TEMP 36.2; O2SAT 94
--- NOTE | 2024-09-08 19:50 | PD.IMCONS ---
HPI Data of Consult Requesting Physician: Christi Sweeney MD Primary Care Provider: Mykel Wilson PA-C Consult Narrative Reason for consult: Evaluation of diarrhea History of present illness: 54 years old female admitted because of worsening renal function at the request of dry pan charger to start hemodialysis while in the hospital Patient does have history of essential hypertension diabetes mellitus type 2 recently had a right eye vitrectomy by Dr. Johnson has a history of left breast biopsy and tubal ligation Patient did have a colonoscopy done by me in January of last year when the CAT scan done on 02/06/2024 had shown enteritis along with diarrhea Patient at the moment 3-4 stools a day loose stools containing no blood Biopsies from the terminal ileum are negative for any evidence of Crohn's disease Erythema of the ileocecal valve and right colon showed no evidence of microscopic colitis or inflammatory bowel disease left colonic biopsies and rectal biopsy were also negative Patient was started on dicyclomine and Questran powder that time and there was no evidence of inflammatory bowel disease cc:: cc: Christi Sweeney MD Review of Systems Review of Systems Systems Reviewed: All systems reviewed, normal except as documented Past Medical History Surgical History OTHER SURGICAL HX: As in the history of present illness Meds Home Medications and Allergies Home Medications ?Medication ?Instructions ?Recorded ?Confirmed ?Type blood sugar diagnostic (True 02/12/24 02/12/24 History Metrix Glucose Test Strip) lancets 30 gauge (TRUEplus Lancets) 02/12/24 02/12/24 History pen needle, diabetic 31 gauge x 02/12/24 02/12/24 History 3 (TechLITE Pen Needle) B complex-vitamin C-folic acid PO QDAY 09/07/24 History atorvastatin 20 mg tablet 20 mg PO .evening 09/07/24 09/07/24 History empagliflozin 25 mg tablet 25 mg PO QDAY 09/07/24 09/07/24 History (Jardiance) Held on 09/08/24. Instructions: Resume on 09/15/24. ergocalciferol (vitamin D2) 1,250 09/07/24 History mcg (50,000 unit) capsule hydroxyzine HCl 10 mg tablet 10 mg PO BID 09/07/24 09/07/24 History lisinopril 2.5 mg tablet mg 09/07/24 History Held on 09/08/24. Instructions: Resume on 09/15/24. ofloxacin 0.3 % eye drops 1 drp ophthalmic (eye) QID 09/07/24 09/07/24 History ondansetron 4 mg disintegrating 4 mg PO PRN nausea and vomiting 09/07/24 History tablet prednisolone acetate 1 % eye 1 drp ophthalmic (eye) QID 09/07/24 09/07/24 History drops,suspension (Pred Forte) vitamin B complex-vitamin C-folic tab 09/07/24 History acid 0.8 mg tablet (Coty-Baldev) Allergies Allergy/AdvReac Type Severity Reaction Status Date / Time No Known Allergies Allergy Verified 09/06/24 09:33 Exam Vital Signs Temp Pulse Resp BP Pulse Ox O2 Del Method 97.2 F 108 H 17 153/88 H 94 L Room Air 09/08/24 16:00 09/08/24 16:00 09/08/24 16:00 09/08/24 16:00 09/08/24 16:00 09/08/24 16:00 Constitutional Comments: Alert oriented Routine Respiratory Exam Comments: Chest normal to percussion auscultation Routine Abdominal Exam Comments: Soft nontender Results Labs 09/08/24 05:44 09/08/24 11:40 Labs: Short CBC 09/08/24 Range/Units 05:44 WBC 6.9 (3.6-11.0) Thou/mm3 Hgb 7.0 L (12.0-16.0) g/dL Hct 20.7 L* (36.0-46.0) % Plt Count 170 (140-440) Thou/mm3 [facility] 09/08/24 09/08/24 05:44 11:40 Sodium 141 139 Potassium 5.4 H D 5.1 Chloride 111 H 106 Carbon Dioxide 22.1 22.8 BUN 54 H 53 H Creatinine 3.8 H 3.8 H Glucose 102 238 H D Calcium 8.2 L 8.2 L Liver Function 09/08/24 09/08/24 Range/Units 05:44 11:40 Total Bilirubin 0.5 (0.3-1.2) mg/dL AST 41 H (0-34) U/L ALT 36 (10-49) U/L Alkaline Phosphatase 108 (46-116) U/L Albumin 2.8 L 2.9 L (3.5-5.0) gm/dL Assessment and Plan Additional Assessment & Plan Additional Plan: # Diarrhea about 3-4 stools a day most likely autonomic neuropathy caused by the underlying metabolic disorder and there is no evidence of inflammatory bowel disease on the previous colonoscopy done in January of 2024 As the ANCA antibody was negative as well as the colonic biopsies right colon left colon and rectum as well as terminal ileum were all negative for inflammatory bowel disease Symptomatic treatment with loperamide 2 mg AM and at bedtime Patient's anemia is caused by the renal issues and not a GI bleed although I will do test stool for occult blood and if positive we will consider an upper endoscopy prior to discharge No need for a colonoscopy Thank you very much for the opportunity to participate in the care of this patient Other medical problems include End-stage renal disease soon to be on hemodialysis Diabetes mellitus type 2 Essential hypertension Right eye vitrectomy left breast biopsy and tubal ligation
[2024-09-08 20:00] VITALS: BP 145/94; PULSE 117; RESP 17; TEMP 36.1; O2SAT 93
[2024-09-08] MEDS: ATORVASTATIN CALCIUM 10 MG TABLET 20 MG PO (20:42)
[2024-09-09] VITALS (16 sets, daily range): BP systolic 152–179; BP diastolic 71–102; PULSE 75–116; RESP 17–29; TEMP 36–37.4; O2SAT 92–100; BMI 13.0; BMI 29.2
[2024-09-09] MEDS: OFLOXACIN OP SOL 0.3% 5 ML BTL 1 DROP RIGHT EYE ×3 (05:28→20:20)
[2024-09-09] MEDS: prednisoLONE OP SUSP 1% 5 ML BTL 1 DROP RIGHT EYE ×3 (05:29→20:19)
[2024-09-09 05:46] LABS: Misc Send Out* See Sep Rpt
[2024-09-09 06:00] LABS: Basophils % (Auto) 0 % (0-2.5); Eosinophils % (Auto) 0 % (0-10); Hematocrit 21.4 % (36.0-46.0); Immature Granulocytes % (Auto) 1 % (0-0); Immature Granulocytes Auto 0.05 Thou/mm3 (0.00-0.00); Lymphocytes # (Auto) 1.2 Thou/mm3 (1.0-4.8); Lymphocytes % (Auto) 11 % (10-50); Mean Corpuscular HGB Conc 34.1 g/dl (31.0-37.0); Mean Corpuscular Hemoglobin 31.3 pg (25.0-35.0); Mean Corpuscular Volume 92 fL (80-100); Monocytes # (Auto) 0.5 Thou/mm3 (0.0-0.8); Monocytes % (Auto) 5 % (0-12); Neutrophils # (Auto) 9.3 Thou/mm3 (1.8-7.7); Neutrophils % (Auto) 84 % (37-80); Nucleated Red Blood Cell % 0 /100 WBC (0); Platelet Count 202 Thou/mm3 (140-440); RDW Standard Deviation 47.5 fL (36.4-46.3); Red Blood Count 2.33 Miln/mm3 (4.00-5.20)
[2024-09-09 06:18] LABS: Hemoglobin 7.3 g/dL (12.0-16.0)
[2024-09-09 06:31] LABS: Alanine Aminotransferase 33 U/L (10-49); Alkaline Phosphatase 104 U/L (46-116); Anion Gap 10 (7-16); Aspartate Amino Transferase 41 U/L (0-34); BUN/Creatinine Ratio 12 Ratio (12-20); Bilirubin,Total 0.7 mg/dL (0.3-1.2); Blood Urea Nitrogen 46 mg/dL (9-23); Calcium 8.5 mg/dL (8.3-10.6); Calcium (Corrected) 9.3 mg/dL (8.5-10.1); Carbon Dioxide 21.6 mMol/L (20.0-31.0); Chloride 111 mMol/L (98-107); Glucose 135 mg/dL (74-106); Magnesium 1.6 mg/dL (1.6-2.6); Osmolality,Calculated 298 (275-295); Phosphorous 4.4 mg/dL (2.4-5.1); Potassium 4.7 mMol/L (3.4-5.1); Sodium 143 mMol/L (136-145); eGFR 13 See Note
[2024-09-09 06:41] LABS: C-Reactive Protein 5.7 mg/dL (0.0-0.9)
[2024-09-09 08:01] LABS: Total Iron Binding Capacity 194 mcg/dL (250-425)
[2024-09-09 08:13] LABS: Iron 15 mcg/dL (50-170); Percent Iron Saturation 7 % (20-55); Unsaturated Iron Binding 179 (225-295)
[2024-09-09] MEDS: Magnesium Sulfate 2 GM Ivpb 2 GM/50 ML BAG IV (09:22)
--- NOTE | 2024-09-09 10:07 | ESPR_ITS ---
Documentation for date of: 09/09/24 Subjective Subjective Interval history: patient is a 53-year-old female with significant past medical history of uncontrolled DM 2, CKD stage IV, hypertension was sent by transition manager Dr. Pedraza due to worsening of renal function labs. The patient underwent right eye vitrectomy at [facility] by director of nuclear medicine Dr. Johnson. The patient admitted having chronic cough, but denied any chest pain or SOB, fever or chills, he admitted occasional diarrhea as she was recently diagnosed with Crohn's disease. In the ED her vitals were stable with blood pressure 139/74, pulse rate 112 saturating 99% on room air. The patient's last labs revealed hemoglobin 7.5, hematocrit 22.0, sodium 139, potassium 4.9, chloride 111, bicarb 18.5, BUN 65, creatinine 4.5, EGFR 11, blood sugar 175, corrected calcium 8.7, phosphorus 5.5, mild transaminitis with AST/ALT 83/66, ALP 142, UA revealed protein 3+, glucose 4+, blood 2+, WBC 6, bacteria rare. The patient was given 1 L IV LR bolus and started on 100 cc/h of LR and admitted to the floors. Nephrology consultation was done for further management of ARIK on CKD stage IV and electrolyte abnormalities. 09/07/2024: The patient was interviewed and examined at the bedside this morning. She reported doing well. Her vitals were fairly stable with heart rate 104. Hemoglobin 7.3, hematocrit 21.7, sodium 140, potassium 4.8, chloride 211, bicarb 18.2, BUN 58, creatinine 4.1, GFR 12. Mild transaminitis seen. Urine electrolytes and bilateral renal ultrasound was ordered that was significant for mild left hydronephrosis. We will continue with LR 100 cc/h and continue to monitor renal panel. 09/08/2024 comfortable. BUN/ Cr tad better. GFR < 15- d/w patient regarding FLEET MANAGER options. Not a PD candidate. Her sister on dialysis. She is very sleptical. Time spnet 30min. If Cr still elevated- she agreed for HD in am. She has progressive D. Nephropathy 09/09/2024 patient currently seen in medical floor. Resting comfortably. Legally blind. Very pleasant lady. Blood sugar 103. Blood pressure 154/91, heart rate 106. Hemoglobin 7.3, platelets 202. Sodium 143, potassium 4.7, bicarbonate 21.6, BUN 46, creatinine 4, GFR 13, calcium 9.3, phosphorus 4.4, magnesium 1.6, iron saturation 7%. C-reactive protein 5.7, albumin 3. Hep panel pending. Patient supposed to get dialysis catheter-IR closed due to holiday. Will schedule dialysis tomorrow. Patient agreed for dialysis catheter and hemodialysis. Review of Systems Review of Systems Narrative Review of Systems: legally blind. Denies cp, sob. Decreased appetite Denies any nausea, vomiting. Feeling fatigued. Exam Vital Signs Temp Pulse Resp BP Pulse Ox O2 Del Method 36.0 C 97 20 158/96 H 98 Room Air 09/09/24 08:00 09/09/24 08:00 09/09/24 08:00 09/09/24 08:00 09/09/24 08:00 09/09/24 08:00 Narrative Exam General: No acute distress, Alert and Oriented x 3 HEENT: Moist mucous membranes. legally blind Neck: Supple, No masses, No JVD CVS: S1S2 Regular rate and rhythm, No murmurs, rubs or gallops Lungs: Clear to auscultation with no accessory use, no wheeze no rhonchi Abd: Soft, NT/ND, +BS, no organomegaly Ext: No lower limb edema, warm and well perfused Skin: No rash Psych: Appropriate mood and affect Objective Labs 09/09/24 05:20 09/09/24 05:20 Labs: Laboratory Results - last 24 hr 09/08/24 09/08/24 09/09/24 08:07 11:40 05:20 WBC 11.0 D RBC 2.33 L Hgb 7.3 L Hct 21.4 L* MCV 92 MCH 31.3 MCHC 34.1 RDW Std Deviation 47.5 H Plt Count 202 D Neut % (Auto) 84 H Lymph % (Auto) 11 [place] % (Auto) 5 Eos % (Auto) 0 Baso % (Auto) 0 Neut # (Auto) 9.3 H Lymph # (Auto) 1.2 [place] # (Auto) 0.5 Eos # (Auto) 0.0 Baso # (Auto) 0.0 Immature Gran # (Auto) 0.05 H Absolute Nucleated RBC 0.00 Immature Gran % 1 H Nucleated RBC % 0 Sodium 139 143 Potassium 5.1 4.7 Chloride 106 111 H Carbon Dioxide 22.8 21.6 Anion Gap 10 10 BUN 53 H 46 H Creatinine 3.8 H 4.0 H Estim Creat Clear Calc 13.6 L 13.0 L eGFR 13 L* 13 L* BUN/Creatinine Ratio 14 12 Glucose 238 H D 135 H D Calculated Osmolality 299 H 298 H Calcium 8.2 L 8.5 Corrected Calcium 9.1 9.3 Phosphorus 4.0 4.4 Magnesium 1.6 Iron 15 L TIBC 194 L Iron Saturation 7 L Unsat Iron Binding 179 L Total Bilirubin 0.7 AST 41 H ALT 33 Alkaline Phosphatase 104 C-Reactive Prot, Quant 5.7 H Total Protein 6.0 Albumin 2.9 L 3.0 L Globulin 3.0 Albumin/Globulin Ratio 1.0 L Blood Type O Positive Antibody Screen NEGATIVE Crossmatch See Detail Blood Bank Wristband ID Yes Assessment & Plan Additional Assessment & Plan Additional Plan: patient is a 53-year-old female with significant past medical history of uncontrolled DM 2, CKD stage IV, hypertension was sent by transition manager Dr. Pedraza due to worsening of renal function labs. Nephrology consultation was done for further management of ARIK on CKD stage IV and electrolyte abnormalities. #ARIK on stage IV CKD--progressing towards end-stage renal disease needing dialysis. Despite fluids there is no improvement in the renal function. -dc LR 100 cc/h -Avoid nephrotoxic drugs -Renal dose medications -Continue to monitor renal panel daily in the a.m. -US renal BI revealed mild left hydronephrosis will decide on HD in am #RTA type IV Secondary to chronic kidney disease Presented with hyperkalemic and hyperchloremic metabolic acidosis with chloride 111, potassium 4.9 and bicarb 18.5 -Started on Bicitra 30 mL twice daily as it has mortality benefit when bicarb level is less than 22 -Continue to monitor daily renal panel #Hyperphosphatemia, improved Secondary to CKD Presented with phosphorus of 5.5 -Continue on sevelamer 800 Mg 3 times daily with meals -Continue to monitor phosphorus level daily in the a.m. #Primary hypertension Blood pressure in the range of 150s-160s/80s-to 90s -On IV labetalol 2.5 Mg every 4 hourly as needed for SBP 170 with holding parameters -Continue to hold home lisinopril in the setting of ARIK #Insulin-dependent diabetes mellitus type 2 #Status post vitrectomy -Management deferred to primary hospitalist team Spoke to primary team. Quality - progress note Quality Measures Quality Measures: VTE prophylaxis Reason for Continued Stay Reason for Continued Stay: further monitoring
[2024-09-09] MEDS: TUBERCULIN PPD INJ 5 UNIT/0.1 ML DOSE ID (12:40)
--- NOTE | 2024-09-09 12:50 | PC.NURSE ---
PPD Injection given to pt on left forearm on 09/09/24 @1240. Due to read after 09/11/24
--- NOTE | 2024-09-09 14:53 | PC.SS ---
Catrina Lorenzo is 53 year old female admitted to [facility] for ARIK. SS conducted bedside contact with the patient to complete initial assessment and to discuss discharge planning.? SW used all precautionary measures to complete initial. Role and reason for the contact was explained to Catrina. Pt is alert and oriented times 4. Patient confirmed demographic information. Catrina verified resides at address on facesheet and telephone number is correct. Patient identifies Solis Bocanegra, cousin, as her surrogate decision maker. Pt states prior to hospitalization she is able to complete ?all ADL?s independently and does not use DME, pt asked if possible to have walker; Pt does not use O2 and it will need to be provided if continues to need O2; pt did not have a preference on provider. Pt confirmed no history of mental health or substance abuse. Pt has diabetes and is seeing Dr. Pedraza for dialysis and was unable to provide schedule. Pts PCP is dr. Mykel Wilson. Pharmacy of choice is [facility]. Discharge options discussed and the pt will return home. ?Family will provide transportation upon DC. No further intervention required at this time, social work manager would be available to address any further concerns. DC Plan: Home Contact: chelsea Galan, Address: Confirmed on face sheet PCP: Mykel Wilson
--- NOTE | 2024-09-09 14:57 | PC.SS ---
SS discussed advance directive pt receptive; provided information; pt is open to HH and has no preference
--- NOTE | 2024-09-09 15:45 | PD.RESPRO ---
Documentation for date of: 09/09/24 Subjective Subjective Interval history: Patient was seen and examined at bedside this AM. No acute events overnight. Patient tolerating diet, with minimal urine output and mentation at baseline. Hemoglobin was 7 -> 7.2 today. However Cr worsened 3.8 -> 4 with GFR remains in ESRD range Nephrology recommends dialysis catheter, followed by inpatient HD x3 IR guided temp catheter placement scheduled for tomorrow Exam Vital Signs Temp Pulse Resp BP Pulse Ox O2 Del Method 97.5 F 104 H 18 158/90 H 98 Room Air 09/09/24 12:00 09/09/24 12:00 09/09/24 12:00 09/09/24 12:00 09/09/24 12:00 09/09/24 12:00 Narrative Exam Constitutional Alert, oriented x3 and comfortable HEENT Vision grossly intact. Patent nares. Trachea midline. Respiratory Chest normal on inspection and clear to auscultation bilaterally. Cardiovascular S1 and S2 audible, RRR. No murmurs or carotid bruit. No gross JVD. Abdominal Soft and non tender to palpation in all quadrants. BS + Genitourinary No bladder tenderness, no flank pain. Normal to palpation. Musculoskeletal Extremities tone within normal limits. No LE edema. Neurological CN II - XII grossly intact. Extremity motor and sensation grossly intact. Skin Warm, dry and intact. No apparent lesions. Psychiatric Patient has a good affect, is cooperative. Objective Labs 09/09/24 05:20 09/09/24 05:20 Labs: Laboratory Results - last 24 hr 09/09/24 05:20 WBC 11.0 D RBC 2.33 L Hgb 7.3 L Hct 21.4 L* MCV 92 MCH 31.3 MCHC 34.1 RDW Std Deviation 47.5 H Plt Count 202 D Neut % (Auto) 84 H Lymph % (Auto) 11 [place] % (Auto) 5 Eos % (Auto) 0 Baso % (Auto) 0 Neut # (Auto) 9.3 H Lymph # (Auto) 1.2 [place] # (Auto) 0.5 Eos # (Auto) 0.0 Baso # (Auto) 0.0 Immature Gran # (Auto) 0.05 H Absolute Nucleated RBC 0.00 Immature Gran % 1 H Nucleated RBC % 0 Sodium 143 Potassium 4.7 Chloride 111 H Carbon Dioxide 21.6 Anion Gap 10 BUN 46 H Creatinine 4.0 H Estim Creat Clear Calc 13.0 L eGFR 13 L* BUN/Creatinine Ratio 12 Glucose 135 H D Calculated Osmolality 298 H Calcium 8.5 Corrected Calcium 9.3 Phosphorus 4.4 Magnesium 1.6 Iron 15 L TIBC 194 L Iron Saturation 7 L Unsat Iron Binding 179 L Total Bilirubin 0.7 AST 41 H ALT 33 Alkaline Phosphatase 104 C-Reactive Prot, Quant 5.7 H Total Protein 6.0 Albumin 3.0 L Globulin 3.0 Albumin/Globulin Ratio 1.0 L Quality Measures Quality Measures VTE prophylaxis (Heparin) Assessment & Plan Assessment Current Active Medications: Generic Name Dose Route Start Last Admin Trade Name Freq PRN Reason Stop Dose Admin Acetaminophen 650 mg 09/06/24 16:05 09/06/24 19:40 Acetaminophen 325 Mg Tablet PO 10/06/24 16:04 650 mg Q6H PRN Administration Fever >100 or pain 1-3 Atorvastatin Calcium 20 mg 09/06/24 21:00 09/08/24 20:42 Atorvastatin Calcium 10 Mg Tablet PO 10/06/24 20:59 20 mg HS DANIEL Administration Benzocaine 1 lozenge 09/08/24 19:15 Benzocaine/Menthol 1 Lozenge PO 10/08/24 19:14 Q3HR PRN COUGH Benzonatate 100 mg 09/06/24 16:16 09/08/24 23:53 Benzonatate 100 Mg Capsule PO 10/06/24 16:15 100 mg Q12H PRN Administration cough Protocol Citric Acid/Sodium Citrate 30 ml 09/06/24 21:00 09/09/24 08:13 Citric Acid/Sodium Citr 15 Ml Udc (Bicitra) PO 10/06/24 20:59 Not Given BID DANIEL Dextrose 25 ml 09/06/24 16:05 Dextrose 50%-Water Inj 50 Ml Syringe IV 10/06/24 16:04 Q15MIN PRN BG 50-70 responsive npo pt Dextrose 50 ml 09/06/24 16:05 Dextrose 50%-Water Inj 50 Ml Syringe IV 10/06/24 16:04 Q15MIN PRN BG <50 OR BG <70 & pt unresponsive Glucagon 1 mg 09/06/24 16:05 Glucagon Inj 1 Mg Vial IM Q15MIN PRN BG <70, and no IV access Heparin Sodium (Porcine) 5,000 unit 09/06/24 16:15 09/09/24 05:57 Heparin Sod Inj 5000 Unit/Ml Vial SC 09/20/24 16:14 Not Given Q12H DANIEL Hydroxyzine HCl 10 mg 09/06/24 21:00 09/07/24 20:27 Hydroxyzine Hcl 10 Mg Tablet PO 10/06/24 20:59 10 mg HS DANIEL Administration Insulin Human Lispro 0 unit 09/06/24 17:00 09/09/24 07:51 Insulin Lispro (Admelog) 1 Unit/0.01 Ml Unit SC 10/06/24 16:59 Not Given AC [facility] Protocol Labetalol HCl 2.5 mg 09/06/24 20:29 Labetalol Inj 5 Mg/Ml Vial 20 Ml IVP 10/06/24 16:38 Q4H PRN SBP > 170 Loperamide HCl 2 mg 09/09/24 07:42 Loperamide 2 Mg Capsule PO 09/16/24 08:59 BID PRN diarrhea Ofloxacin 1 drop 09/06/24 17:00 09/09/24 12:16 Ofloxacin Op Marjorie 0.3% 5 Ml Btl RIGHT EYE 09/15/24 16:59 1 drop QID DANIEL Administration Ondansetron HCl 4 mg 09/06/24 16:05 09/07/24 23:27 Ondansetron Inj 2 Mg/Ml Inj 2 Ml IV 10/06/24 16:04 4 mg Q6H PRN Administration NAUSEA OR VOMITING Protocol Pantoprazole Sodium 40 mg 09/07/24 09:00 09/09/24 08:13 Pantoprazole 40 Mg Tablet PO 10/07/24 08:59 Not Given QDAY DANIEL Prednisolone Acetate 1 drop 09/06/24 17:00 09/09/24 12:15 Prednisolone Op Susp 1% 5 Ml Btl RIGHT EYE 09/15/24 16:59 1 drop QID DANIEL Administration Sennosides 1 tab 09/06/24 16:05 Senna Tablet PO 10/06/24 16:04 QDAY PRN constipation Protocol Sevelamer Carbonate 800 mg 09/07/24 08:00 09/09/24 08:12 Sevelamer Carbonate 800 Mg Tablet PO 10/07/24 07:59 Not Given TIDWM [facility] Zolpidem Tartrate 2.5 mg 09/08/24 15:16 Zolpidem 5 Mg Tablet PO 10/08/24 15:15 HS PRN INSOMNIA Plan Ms Fritz is a 53 y/o female with uncontrolled insulin-dependent diabetes type 2, CKD stage IV, hypertension who is admitted for ARIK. CKD stage IV --> ESRD Hyperkalemia - resolved - Patient initially had ARIK, likely prerenal, Creatinine seems to be 2.3 at baseline previously ; but regressed from baseline CKD stage IV -> stage V - Follows Dr. Pedraza nephrology outpatient - 09/09 : Cr worsened 3.8 -> 4 with GFR remains in ESRD range Plan: ? Nephrology consulted, appreciate recs ? Strict JOSE's ? Avoid nephrotoxic agents ? Renally dose medicines - Nephrology recommends dialysis catheter, followed by inpatient HD x3 - IR guided temp catheter placement scheduled for tomorrow. HOLD all anticoagulation and NPO after midnight - F/u HIV, hep panel and TB PPD results Chronic diarrhea Normocytic anemia Hx of Hemorrhoids - Hx of chronic diarrhea symptoms - Last colonoscopy in May, 2024 with biopsy: ruled out IBD or microscopic colitis, only remarkable for hemorrhoids. Histopathology negative. - GI consulted, given Hb 7 and patient states she has Crohn's disease - FOBT negative, anemia most likley secondary to renal disease/ESRD - Iron panel : low iron stores Plan: - Dr Iyer consulted, appreciate recommendations, unlikely GIB. ANCA and histopathology negative on last testing, calprotectin only mildly elevated. - Loperamide 2mg PO PRN HS as per GI recs - Nephrovite started 1tab qD - Lactobacillus supplements added - Nephro to consider Epogen, if not, will replete with IV iron supplementation while in hospital Primary hypertension BP 140-150/80-90s Plan: ? Labetalol 10 mg for systolic blood pressure above 170 with holding parameters ? Holding home lisinopril in setting of ARIK - Anticipate improvement after fluid removal with HD Insulin-dependent diabetes type 2. Seems to be uncontrolled Takes 6 units of Basaglar at home - 09/09 : blood sugar <180 during hospitalization Plan: ? SSI ? Hypoglycemic protocol in place ? Carb consistent low diet ? Blood glucose checks with meals s/p recent vitrectomy - postoperative day 3. Patient said she got procedure for a bleeding right eye Patient does have eyepatch and right eye Plan: ? Resumed home prednisolone eyedrops 1 drop in right eye 4 times a day ? Resumed home ofloxacin eyedrops 1 drop in right eye 4 times a day Health Maintenance: Disposition: Med/Surg DVT prophylaxis: Heparin q12h -> HOLD after 6pm GI prophylaxis: Protonix Diet: Carb low -> NPO after midnight CODE STATUS:Full Plan of care discussed with attending Les Richards M.D. PGY2 Disclaimer: This note was dictated by speech recognition. Minor errors in subsurface augmentee operator may be present due to voice recognition software.
[2024-09-09 16:09] LABS: HIV (1&2) Antibody Rapid Non-Reactive
--- NOTE | 2024-09-09 17:30 | SUR.PHASEI ---
[id number] Patient arrived to recovery, report received from Latricia LEHMAN
--- NOTE | 2024-09-09 17:35 | PC.SS ---
SS spoke with Nancy, registration to change next of kin to Solis Bocanegra, cousin,
--- NOTE | 2024-09-09 18:00 | PC.NURSE ---
Made MD Adams aware of pts bps throughout the day ranging in the 150's per MD estefany pisano to monitor.
--- NOTE | 2024-09-09 18:13 | SUR.PHASEI ---
[id number] Report given to Anamika LEHMAN, patient meets discharge criteria from recovery, awake and alert, on oxygen 1L via nasal cannula, breathing unlabored, vital signs stable, denies pain, patient ate two jell0's and drinking water; tolerated well, denies nausea. 181 Patient transported via gurney to room 382 without incident, patient able to ambulate from rguy to bed with stand-by assist from this grant writer, patient sitting up in bed watching TV with call light in reach when this grant writer left patients room
[2024-09-09] MEDS: LACTOBACILLUS RHAMNOSUS 1 CAP PO (20:18)
[2024-09-09] MEDS: ATORVASTATIN CALCIUM 10 MG TABLET 20 MG PO (20:18)
[2024-09-09] MEDS: CITRIC ACID/SODIUM CITR 15 ML UDC (BICITRA) 30 ML PO (20:19)
[2024-09-10] VITALS (25 sets, daily range): BP systolic 137–169; BP diastolic 75–112; PULSE 95–109; RESP 12–20; TEMP 36–36.5; O2SAT 97–100
[2024-09-10] MEDS: BENZONATATE 100 MG CAPSULE PO
[2024-09-10] MEDS: prednisoLONE OP SUSP 1% 5 ML BTL 1 DROP RIGHT EYE ×3 (05:28→20:40)
[2024-09-10] MEDS: OFLOXACIN OP SOL 0.3% 5 ML BTL 1 DROP RIGHT EYE ×3 (05:28→20:40)
[2024-09-10] MEDS: BENZOCAINE/MENTHOL 1 LOZENGE PO (05:37)
[2024-09-10 06:58] LABS: Hepatitis B Surface Antigen Non Reactive (Non React)
[2024-09-10 07:04] LABS: Hepatitis A Antibody IgM Non Reactive (Non React); Hepatitis B Core Antibody IgM Non Reactive (Non React); Hepatitis C Antibody Non Reactive (Non React)
--- NOTE | 2024-09-10 07:24 | XR_ITS ---
Ultrasound-guided needle placement right internal jugular vein Permanent tunneled dialysis catheter insertion, percutaneous Fluoroscopy AP chest, portable, single view INDICATIONS: Renal failure, need for stat and long-term dialysis Date and time of procedure: September 10, 2024 0840 hours Informed consent provided Technique: A timeout was completed verifying correct patient, procedure, site, positioning, and special equipment if applicable. The patient was placed in a dependent position appropriate for dialysis catheter placement based on the vein to be cannulated. The patient'sright neck was prepped and draped in sterile fashion. Maximum Sterile Barrier Technique used including cap, mask, sterile gown, sterile gloves, and sterile full body drape. If ultrasound technique used: sterile gel and sterile probe covers. Hand Hygiene performed using proper scrub, soap and water, or alcohol-based hand rub. 1% lidocaine was used to anesthetize the surrounding skin area [employer] portable ultrasound apparatus utilized to confirm patency of the right internal jugular vein Utilizing ultrasonographic guidance successful 21-gauge needle puncture into the right internal jugular vein. Ultrasound images were recorded and stored. Vessel micropuncture was performed with 21-gauge needle. 0.18 wire guide is introduced into the vein. 0.18 wire is introduced into the vena cava under fluoroscopy. Subcutaneous tunnel formed in the upper chest. Permanent tunneled dialysis catheter placed in the subcutaneous tunnel. Dilators were introduced over the J-wire guide. Tunneled dialysis catheter is introduced through a dilator with venous sheath into the superior vena cava under fluoroscopic guidance. The catheter is sutured in place to the skin and a sterile dressing applied. Perfusion to the extremity distal to the point of catheter insertion is checked and found to be adequate Attending radiologist was present for the entire procedure Estimated blood loss2 cc. The patient tolerated the procedure well and there were no complications Impression: Successful ultrasound-guided needle placement right internal jugular vein Successful permanent tunneled dialysis catheter insertion, percutaneous Fluoroscopy 0.4 minute radiation dose 1.60 milligray 1 spot fluoroscopic chest film. AP chest performed at completion procedure demonstrates satisfactory position dialysis catheter. May use dialysis catheter.
[2024-09-10 08:41] LABS: Basophils % (Auto) 0 % (0-2.5); Eosinophils # (Auto) 0.1 Thou/mm3 (0.0-0.5); Eosinophils % (Auto) 1 % (0-10); Hematocrit 21.2 % (36.0-46.0); Immature Granulocytes % (Auto) 0 % (0-0); Immature Granulocytes Auto 0.03 Thou/mm3 (0.00-0.00); Lymphocytes # (Auto) 1.1 Thou/mm3 (1.0-4.8); Lymphocytes % (Auto) 15 % (10-50); Mean Corpuscular HGB Conc 33.5 g/dl (31.0-37.0); Mean Corpuscular Hemoglobin 31.3 pg (25.0-35.0); Mean Corpuscular Volume 93 fL (80-100); Monocytes # (Auto) 0.5 Thou/mm3 (0.0-0.8); Monocytes % (Auto) 7 % (0-12); Neutrophils # (Auto) 5.6 Thou/mm3 (1.8-7.7); Neutrophils % (Auto) 76 % (37-80); Nucleated Red Blood Cell % 0 /100 WBC (0); Platelet Count 213 Thou/mm3 (140-440); RDW Standard Deviation 47.8 fL (36.4-46.3); Red Blood Count 2.27 Miln/mm3 (4.00-5.20); White Blood Count 7.3 Thou/mm3 (3.6-11.0)
[2024-09-10 08:57] LABS: INR 1.1 (0.9-1.3); Prothrombin Time 11.6 Seconds (9.0-12.2)
[2024-09-10 09:03] LABS: Hemoglobin 7.1 g/dL (12.0-16.0)
[2024-09-10] MEDS: HEPARIN SOD LOCK SYR 100 UNIT/ML 500 UNIT STFIELD (09:12)
[2024-09-10] MEDS: LIDOCAINE INJ PF 1% 5 ML VIAL 20 ML INFL (09:13)
[2024-09-10 09:14] LABS: Alanine Aminotransferase 25 U/L (10-49); Albumin, Serum 2.8 gm/dL (3.5-5.0); Albumin/Globulin Ratio 0.9 (1.2-2.2); Alkaline Phosphatase 93 U/L (46-116); Anion Gap 7 (7-16); Aspartate Amino Transferase 30 U/L (0-34); BUN/Creatinine Ratio 12 Ratio (12-20); Bilirubin,Total 0.6 mg/dL (0.3-1.2); Blood Urea Nitrogen 45 mg/dL (9-23); Calcium 8.4 mg/dL (8.3-10.6); Calcium (Corrected) 9.4 mg/dL (8.5-10.1); Carbon Dioxide 24.5 mMol/L (20.0-31.0); Chloride 110 mMol/L (98-107); Creatinine (Component) 3.9 mg/dL (0.6-1.3); Estimated Creatinine Clearance 13.3 mL/min (>60); Glucose 126 mg/dL (74-106); Osmolality,Calculated 294 (275-295); Potassium 4.6 mMol/L (3.4-5.1); Sodium 141 mMol/L (136-145); Total Protein 5.8 gm/dL (5.7-8.2); eGFR 13 See Note
[2024-09-10] MEDS: SODIUM CHLORIDE 0.9% 250 ML 250 ML 20 ML IV (09:15)
[2024-09-10] MEDS: fentaNYL CIT INJ 50 mCg/ML AMP 2ML 25 MCG IVP (09:38)
[2024-09-10] MEDS: HEPARIN SOD INJ 5000 UNIT/ML VIAL 10 ML 4100 UNIT INTRACATH (10:00)
[2024-09-10] MEDS: ACETAMINOPHEN 325 MG TABLET 650 MG PO (12:12)
--- NOTE | 2024-09-10 12:17 | PC.NURSE ---
call Dr. hawthorne and Dr. Castro for update on pt. Hbg of 7.1. as o today Per MD pt. will receive the Epoetin in dialysis today and will monitor pt. after her dialysis and received of the Epoeitin. Until then have Prbc on hold
--- NOTE | 2024-09-10 13:03 | PD.NEPHPROG ---
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 Pedraza due to worsening of renal function labs. The patient underwent right eye vitrectomy at [facility] by shank carrier Dr. Johnson. The patient admitted having chronic cough, but denied any chest pain or SOB, fever or chills, he admitted occasional diarrhea as she was recently diagnosed with Crohn's disease. In the ED her vitals were stable with blood pressure 139/74, pulse rate 112 saturating 99% on room air. The patient's last labs revealed hemoglobin 7.5, hematocrit 22.0, sodium 139, potassium 4.9, chloride 111, bicarb 18.5, BUN 65, creatinine 4.5, EGFR 11, blood sugar 175, corrected calcium 8.7, phosphorus 5.5, mild transaminitis with AST/ALT 83/66, ALP 142, UA revealed protein 3+, glucose 4+, blood 2+, WBC 6, bacteria rare. The patient was given 1 L IV LR bolus and started on 100 cc/h of LR and admitted to the floors. Nephrology consultation was done for further management of ARIK on CKD stage IV and electrolyte abnormalities. 09/07/2024: The patient was interviewed and examined at the bedside this morning. She reported doing well. Her vitals were fairly stable with heart rate 104. Hemoglobin 7.3, hematocrit 21.7, sodium 140, potassium 4.8, chloride 211, bicarb 18.2, BUN 58, creatinine 4.1, GFR 12. Mild transaminitis seen. Urine electrolytes and bilateral renal ultrasound was ordered that was significant for mild left hydronephrosis. We will continue with LR 100 cc/h and continue to monitor renal panel. 09/08/2024 comfortable. BUN/ Cr tad better. GFR < 15- d/w patient regarding TREASURY ANALYST options. Not a PD candidate. Her sister on dialysis. She is very sleptical. Time spnet 30min. If Cr still elevated- she agreed for HD in am. She has progressive D. Nephropathy 09/09/2024 patient currently seen in medical floor. Resting comfortably. Legally blind. Very pleasant lady. Blood sugar 103. Blood pressure 154/91, heart rate 106. Hemoglobin 7.3, platelets 202. Sodium 143, potassium 4.7, bicarbonate 21.6, BUN 46, creatinine 4, GFR 13, calcium 9.3, phosphorus 4.4, magnesium 1.6, iron saturation 7%. C-reactive protein 5.7, albumin 3. Hep panel pending. Patient supposed to get dialysis catheter-IR closed due to holiday. Will schedule dialysis tomorrow. Patient agreed for dialysis catheter and hemodialysis. 09/10/2024 Catrina is currently seen on dialysis. Creatinine still elevated. GFR less than 15. Had a right IJ dialysis catheter and is currently seen on her first session. Tolerating well although mild pain from the catheter site. Labs, medications have been reviewed. Hemoglobin 7.1-1 unit PRBC will be given. Creatinine 3.9 with a GFR of 13. Albumin 2.8. Review of Systems Review of Systems Narrative Review of Systems: legally blind. Denies cp, sob. Decreased appetite Denies any nausea, vomiting. Feeling fatigued. Exam Vital Signs Temp Pulse Resp BP Pulse Ox O2 Del Method O2 Flow Rate 36.0 C 107 H 12 150/91 H 100 Nasal Cannula 2 09/10/24 09:47 09/10/24 09:47 09/10/24 09:47 09/10/24 09:47 09/10/24 09:47 09/10/24 09:47 09/10/24 09:47 Narrative Exam General: No acute distress, Alert and Oriented x 3-on dialysis HEENT: Moist mucous membranes. legally blind Neck: Supple, No masses, No JVD CVS: S1S2 Regular rate and rhythm, No murmurs, rubs or gallops Lungs: Clear to auscultation with no accessory use, no wheeze no rhonchi Abd: Soft, NT/ND, +BS, no organomegaly Ext: No lower limb edema, warm and well perfused Skin: No rash-right IJ PermCath. Psych: Appropriate mood and affect Objective Labs 09/10/24 08:30 09/10/24 08:30 Labs: Laboratory Results - last 24 hr 09/09/24 09/10/24 13:15 08:30 WBC 7.3 RBC 2.27 L Hgb 7.1 L Hct 21.2 L* MCV 93 MCH 31.3 MCHC 33.5 RDW Std Deviation 47.8 H Plt Count 213 Neut % (Auto) 76 Lymph % (Auto) 15 [place] % (Auto) 7 Eos % (Auto) 1 Baso % (Auto) 0 Neut # (Auto) 5.6 Lymph # (Auto) 1.1 [place] # (Auto) 0.5 Eos # (Auto) 0.1 Baso # (Auto) 0.0 Immature Gran # (Auto) 0.03 H Absolute Nucleated RBC 0.00 Immature Gran % 0 Nucleated RBC % 0 PT 11.6 INR 1.1 APTT 30.0 Sodium 141 Potassium 4.6 Chloride 110 H Carbon Dioxide 24.5 Anion Gap 7 BUN 45 H Creatinine 3.9 H Estim Creat Clear Calc 13.3 L eGFR 13 L* BUN/Creatinine Ratio 12 Glucose 126 H Calculated Osmolality 294 Calcium 8.4 Corrected Calcium 9.4 Total Bilirubin 0.6 AST 30 ALT 25 Alkaline Phosphatase 93 Total Protein 5.8 Albumin 2.8 L Globulin 3.0 Albumin/Globulin Ratio 0.9 L Hepatitis A IgM Ab Non Reactive Hep Bs Antigen Non Reactive Hep B Core IgM Ab Non Reactive Hepatitis C Antibody Non Reactive HIV 1&2 Antibody Rapid Non-Reactive Assessment & Plan Additional Assessment & Plan Additional Plan: patient is a 53-year-old female with significant past medical history of uncontrolled DM 2, CKD stage IV, hypertension was sent by 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 Pedraza due to worsening of renal function labs. Nephrology consultation was done for further management of ARIK on CKD stage IV and electrolyte abnormalities. #ARIK on stage IV CKD--progressing towards end-stage renal disease needing dialysis. Despite fluids there is no improvement in the renal function. -dc LR 100 cc/h -Avoid nephrotoxic drugs -Renal dose medications -Continue to monitor renal panel daily in the a.m. -US renal BI revealed mild left hydronephrosis HD catheter placed by Dr. Miramontes Patient currently seen on dialysis. Tolerating dialysis without any problems. Hemodialysis for 2 hours, 2K, ultrafiltration 1 L, Epogen 6000, no heparin ordered. 1 unit PRBC ordered with dialysis. Plan of care discussed with the dialysis nurse. Please see dialysis flowsheet for further details. #RTA type IV Secondary to chronic kidney disease Bicarbonate better-we will add bicarb during dialysis. dc bicitra #Hyperphosphatemia, improved Secondary to CKD Presented with phosphorus of 5.5 -Continue on sevelamer 800 Mg 3 times daily with meals -Continue to monitor phosphorus level daily in the a.m. #Primary hypertension Blood pressure in the range of 150s-160s/80s-to 90s -On IV labetalol 2.5 Mg every 4 hourly as needed for SBP 170 with holding parameters -Continue to hold home lisinopril in the setting of ARIK #Insulin-dependent diabetes mellitus type 2 #Status post vitrectomy -Management deferred to primary hospitalist team Spoke to primary team. Quality - progress note Quality Measures Quality Measures: VTE prophylaxis Reason for Continued Stay Reason for Continued Stay: further monitoring
[2024-09-10] MEDS: HEPARIN SOD INJ 1000 UNIT/ML VIAL 10 ML 4100 UNIT INDWELLCAT (13:37)
[2024-09-10] MEDS: EPOETIN ALFA-EPBX INJ 10,000 UNIT/ML VIAL (ESRD) 10000 UNIT SC (13:56)
--- NOTE | 2024-09-10 16:01 | ESPR_ITS ---
Documentation for date of: 09/10/24 Subjective Subjective Interval history: Patient was seen and examined at bedside this AM. No acute events overnight. Patient tolerating diet, with minimal urine output and mentation at baseline. Cr worsened 3.8 -> 3.9 with GFR remains in ESRD range. Nephrology recommends dialysis catheter Patient had a right IJ dialysis catheter today 09/10 and first session of HD Hemoglobin between 7 - 7.2, MCV 90s ; patient received Epogen x1 during HD Dispo: Will need HD x3 sessions inpatient, dialysis chair time prior to DC Exam Vital Signs Temp Pulse Resp BP Pulse Ox O2 Del Method O2 Flow Rate 97.5 F 96 18 153/84 H 100 Nasal Cannula 2 09/10/24 13:58 09/10/24 13:58 09/10/24 13:58 09/10/24 13:58 09/10/24 13:58 09/10/24 11:45 09/10/24 13:58 Narrative Exam Constitutional Alert, oriented x3 and comfortable, undergoing HD x1 HEENT Vision grossly intact. Patent nares. Trachea midline. RT IJ temp dialysis catheter Respiratory Chest normal on inspection and clear to auscultation bilaterally. Cardiovascular S1 and S2 audible, RRR. No murmurs or carotid bruit. No gross JVD. Abdominal Soft and non tender to palpation in all quadrants. BS + Genitourinary No bladder tenderness, no flank pain. Normal to palpation. Musculoskeletal Extremities tone within normal limits. No LE edema. Neurological CN II - XII grossly intact. Extremity motor and sensation grossly intact. Skin Warm, dry and intact. No apparent lesions. Psychiatric Patient has a good affect, is cooperative. Objective Labs 09/11/24 04:21 09/11/24 04:21 Labs: Laboratory Results - last 24 hr 09/09/24 09/10/24 13:15 08:30 WBC 7.3 RBC 2.27 L Hgb 7.1 L Hct 21.2 L* MCV 93 MCH 31.3 MCHC 33.5 RDW Std Deviation 47.8 H Plt Count 213 Neut % (Auto) 76 Lymph % (Auto) 15 [place] % (Auto) 7 Eos % (Auto) 1 Baso % (Auto) 0 Neut # (Auto) 5.6 Lymph # (Auto) 1.1 [place] # (Auto) 0.5 Eos # (Auto) 0.1 Baso # (Auto) 0.0 Immature Gran # (Auto) 0.03 H Absolute Nucleated RBC 0.00 Immature Gran % 0 Nucleated RBC % 0 PT 11.6 INR 1.1 APTT 30.0 Sodium 141 Potassium 4.6 Chloride 110 H Carbon Dioxide 24.5 Anion Gap 7 BUN 45 H Creatinine 3.9 H Estim Creat Clear Calc 13.3 L eGFR 13 L* BUN/Creatinine Ratio 12 Glucose 126 H Calculated Osmolality 294 Calcium 8.4 Corrected Calcium 9.4 Total Bilirubin 0.6 AST 30 ALT 25 Alkaline Phosphatase 93 Total Protein 5.8 Albumin 2.8 L Globulin 3.0 Albumin/Globulin Ratio 0.9 L Hepatitis A IgM Ab Non Reactive Hep Bs Antigen Non Reactive Hep B Core IgM Ab Non Reactive Hepatitis C Antibody Non Reactive HIV 1&2 Antibody Rapid Non-Reactive Quality Measures Quality Measures VTE prophylaxis (Heparin) Assessment & Plan Assessment Current Active Medications: Generic Name Dose Route Start Last Admin Trade Name Freq PRN Reason Stop Dose Admin Acetaminophen 650 mg 09/06/24 16:05 09/10/24 12:12 Acetaminophen 325 Mg Tablet PO 10/06/24 16:04 650 mg Q6H PRN Administration Fever >100 or pain 1-3 Atorvastatin Calcium 20 mg 09/10/24 21:00 Atorvastatin Calcium 20 Mg Tablet PO 10/06/24 20:59 HS DANIEL Benzocaine 1 lozenge 09/08/24 19:15 09/10/24 05:37 Benzocaine/Menthol 1 Lozenge PO 10/08/24 19:14 1 lozenge Q3HR PRN Administration COUGH Protocol Benzonatate 100 mg 09/06/24 16:16 09/10/24 00:00 Benzonatate 100 Mg Capsule PO 10/06/24 16:15 100 mg Q12H PRN Administration cough Protocol Citric Acid/Sodium Citrate 30 ml 09/06/24 21:00 09/10/24 08:46 Citric Acid/Sodium Citr 15 Ml Udc (Bicitra) PO 10/06/24 20:59 Not Given BID DANIEL Dextrose 25 ml 09/06/24 16:05 Dextrose 50%-Water Inj 50 Ml Syringe IV 10/06/24 16:04 Q15MIN PRN BG 50-70 responsive npo pt Dextrose 50 ml 09/06/24 16:05 Dextrose 50%-Water Inj 50 Ml Syringe IV 10/06/24 16:04 Q15MIN PRN BG <50 OR BG <70 & pt unresponsive Glucagon 1 mg 09/06/24 16:05 Glucagon Inj 1 Mg Vial IM Q15MIN PRN BG <70, and no IV access Heparin Sodium (Porcine) 5,000 unit 09/06/24 16:15 09/09/24 05:57 Heparin Sod Inj 5000 Unit/Ml Vial SC 09/20/24 16:14 Not Given Q12H [facility] Heparin Sodium (Porcine) 4,100 unit 09/10/24 13:19 09/10/24 13:37 Heparin Sod Inj 1000 Unit/Ml Vial 10 Ml INDWELLCAT 09/24/24 13:18 4,100 unit X1 PRN Administration DIALYSIS Hydroxyzine HCl 10 mg 09/06/24 21:00 09/07/24 20:27 Hydroxyzine Hcl 10 Mg Tablet PO 10/06/24 20:59 10 mg HS DANIEL Administration Sodium Chloride 250 mls @ 20 mls/hr 09/10/24 09:15 09/10/24 10:05 Ns IV 09/10/24 21:44 Infused .[id number] [facility] Infusion Insulin Human Lispro 0 unit 09/06/24 17:00 09/10/24 12:21 Insulin Lispro (Admelog) 1 Unit/0.01 Ml Unit SC 10/06/24 16:59 Not Given AC [facility] Protocol Labetalol HCl 2.5 mg 09/06/24 20:29 Labetalol Inj 5 Mg/Ml Vial 20 Ml IVP 10/06/24 16:38 Q4H PRN SBP > 170 Lactobacillus Rhamnosus 1 cap 09/09/24 21:00 09/10/24 08:47 Lactobacillus Rhamnosus 1 Cap PO 10/09/24 20:59 Not Given BID DANIEL Loperamide HCl 2 mg 09/09/24 07:42 Loperamide 2 Mg Capsule PO 09/16/24 08:59 BID PRN diarrhea Ofloxacin 1 drop 09/06/24 17:00 09/10/24 12:22 Ofloxacin Op Marjorie 0.3% 5 Ml Btl RIGHT EYE 09/15/24 16:59 Not Given QID DANIEL Ondansetron HCl 4 mg 09/06/24 16:05 09/07/24 23:27 Ondansetron Inj 2 Mg/Ml Inj 2 Ml IV 10/06/24 16:04 4 mg Q6H PRN Administration NAUSEA OR VOMITING Protocol Pantoprazole Sodium 40 mg 09/07/24 09:00 09/10/24 08:47 Pantoprazole 40 Mg Tablet PO 10/07/24 08:59 Not Given QDAY DANIEL Prednisolone Acetate 1 drop 09/06/24 17:00 09/10/24 12:22 Prednisolone Op Susp 1% 5 Ml Btl RIGHT EYE 09/15/24 16:59 Not Given QID DANIEL Sennosides 1 tab 09/06/24 16:05 Senna Tablet PO 10/06/24 16:04 QDAY PRN constipation Protocol Sevelamer Carbonate 800 mg 09/07/24 08:00 09/10/24 12:22 Sevelamer Carbonate 800 Mg Tablet PO 10/07/24 07:59 Not Given TIDWM DANIEL Vitamin B Complex/Vit C/Folic Acid 1 tab 09/09/24 16:00 09/10/24 08:47 Vit B12/Vit C/Fa (Nephrovite) Tablet PO 10/09/24 15:59 Not Given QDAY DANIEL Zolpidem Tartrate 2.5 mg 09/08/24 15:16 Zolpidem 5 Mg Tablet PO 10/08/24 15:15 HS PRN INSOMNIA Plan Ms Fritz is a 53 y/o female with uncontrolled insulin-dependent diabetes type 2, CKD stage IV, hypertension who is admitted for ARIK. ESRD on HD s/p RT IJ dialysis temp catheter ` - Patient initially had ARIK, likely prerenal, Creatinine seems to be 2.3 at baseline previously ; but regressed from baseline CKD stage IV -> stage V - Follows Dr. Pedraza nephrology outpatient - 09/09 : Cr worsened 3.8 -> 4 with GFR remains in ESRD range - F/u HIV, hep panel : negative - 09/10 : patient had a right IJ dialysis catheter today 09/10 and first session of HD Plan: - First session of Hemodialysis for 2 hours : 2K, ultrafiltration 1 L, no heparin ordered. ? Nephrology consulted, appreciate recs ? Strict JOSE's ? Avoid nephrotoxic agents ? Renally dose medicines - TB PPD : pending read @ 48 hours Chronic diarrhea - resolved Normocytic anemia Hx of Hemorrhoids - Hx of chronic diarrhea symptoms - Last colonoscopy in May, 2024 with biopsy: ruled out IBD or microscopic colitis, only remarkable for hemorrhoids. Histopathology negative. - GI consulted, given Hb 7 and patient states she has Crohn's disease - FOBT negative, anemia most likley secondary to renal disease/ESRD - Iron panel : low iron stores - Dr Iyer consulted, appreciate recommendations, unlikely GIB. ANCA and histopathology negative on last testing, calprotectin only mildly elevated. - 09/10 : Hemoglobin between 7 - 7.2, MCV 90s ; patient received Epogen x1 during HD Plan: - HD : Received Epogen 6000, no heparin + 1 unit PRBC - Loperamide 2mg PO PRN HS as per GI recs - Nephrovite started 1tab qD - Lactobacillus supplements added Primary hypertension BP 140-150/80-90s Plan: - Started Losartan 25mg daily - Anticipate improvement after fluid removal with HD Insulin-dependent diabetes type 2. Seems to be uncontrolled Takes 6 units of Basaglar at home - 09/09 : blood sugar <180 during hospitalization - 09/10 : NPO until procedure, diet ordered. BG 130s Plan: ? Continue SSI ? Hypoglycemic protocol in place ? Renal Carb consistent low diet ? Blood glucose checks with meals s/p recent vitrectomy - postoperative day 4 Patient said she got procedure for a bleeding right eye Patient does have eyepatch and right eye Plan: ? Resumed home prednisolone eyedrops 1 drop in right eye 4 times a day ? Resumed home ofloxacin eyedrops 1 drop in right eye 4 times a day Health Maintenance: Disposition: Med/Surg. Will need HD x3 sessions inpatient, dialysis chair time prior to DC DVT prophylaxis: Heparin q12h -> HOLD after 6pm GI prophylaxis: Protonix Diet: Carb low Renal diet CODE STATUS: Full code Plan of care discussed with attending Dr. De La Cruz, Les Castro M.D. PGY2 Disclaimer: This note was dictated by speech recognition. Minor errors in electronic warfare officer may be present due to voice recognition software. Attending Provider Attestation/Addendum I have examined the patient, reviewed labs and imaging findings, discussed the case with the resident(s), and reviewed entered orders. I agree with the plan of care as outlined in this note, with these additional summaries/recommendations: Patient seen at bedside. No acute overnight events. Patient have right IJ dialysis catheter placed this morning and is receiving her first hemodialysis session. Case management arranging outpatient chair time. Hemoglobin noted to be 7.1 and 1 unit PRBCs ordered via Nephrology. We will follow-up posttransfusion H&H. Continue home antihypertensives and insulin sliding scale for diabetes mellitus type 2. Patient endorses minor improvement in diarrhea after starting loperamide and we will continue to monitor. Gastroenterology following. Repeat hematology and chemistry panel in AM. Dr. De La Cruz
[2024-09-10] MEDS: SEVELAMER CARBONATE 800 MG TABLET PO (17:47)
--- NOTE | 2024-09-10 18:19 | PC.NURSE ---
made aware Pt. Bio patch is saturated red per they are coming to check on pt. now
[2024-09-10] MEDS: LACTOBACILLUS RHAMNOSUS 1 CAP PO (20:40)
[2024-09-10] MEDS: CITRIC ACID/SODIUM CITR 15 ML UDC (BICITRA) 30 ML PO (20:40)
[2024-09-10] MEDS: ATORVASTATIN CALCIUM 20 MG TABLET PO (20:40)
--- NOTE | 2024-09-10 21:55 | ESPR_ITS ---
Documentation for date of: 09/10/24 Subjective Subjective Interval history: Patient evaluated Biopsies of the descending colon duodenal bulb are pending Exam Vital Signs Temp Pulse Resp BP Pulse Ox O2 Del Method O2 Flow Rate 97.4 F 101 H 20 138/88 H 98 Nasal Cannula 2 09/10/24 20:00 09/10/24 20:00 09/10/24 20:00 09/10/24 20:00 09/10/24 20:00 09/10/24 20:00 09/10/24 20:00 Objective Labs 09/10/24 08:30 09/10/24 08:30 Labs: Laboratory Results - last 24 hr 09/09/24 09/10/24 13:15 08:30 WBC 7.3 RBC 2.27 L Hgb 7.1 L Hct 21.2 L* MCV 93 MCH 31.3 MCHC 33.5 RDW Std Deviation 47.8 H Plt Count 213 Neut % (Auto) 76 Lymph % (Auto) 15 [place] % (Auto) 7 Eos % (Auto) 1 Baso % (Auto) 0 Neut # (Auto) 5.6 Lymph # (Auto) 1.1 [place] # (Auto) 0.5 Eos # (Auto) 0.1 Baso # (Auto) 0.0 Immature Gran # (Auto) 0.03 H Absolute Nucleated RBC 0.00 Immature Gran % 0 Nucleated RBC % 0 PT 11.6 INR 1.1 APTT 30.0 Sodium 141 Potassium 4.6 Chloride 110 H Carbon Dioxide 24.5 Anion Gap 7 BUN 45 H Creatinine 3.9 H Estim Creat Clear Calc 13.3 L eGFR 13 L* BUN/Creatinine Ratio 12 Glucose 126 H Calculated Osmolality 294 Calcium 8.4 Corrected Calcium 9.4 Total Bilirubin 0.6 AST 30 ALT 25 Alkaline Phosphatase 93 Total Protein 5.8 Albumin 2.8 L Globulin 3.0 Albumin/Globulin Ratio 0.9 L Hepatitis A IgM Ab Non Reactive Hep Bs Antigen Non Reactive Hep B Core IgM Ab Non Reactive Hepatitis C Antibody Non Reactive Impressions Impression: # Chronic diarrhea Workup in progress Assessment & Plan A&P Narrative # Diarrhea about 3-4 stools a day most likely autonomic neuropathy caused by the underlying metabolic disorder and there is no evidence of inflammatory bowel disease on the previous colonoscopy done in January of 2024 As the ANCA antibody was negative as well as the colonic biopsies right colon left colon and rectum as well as terminal ileum were all negative for inflammatory bowel disease Symptomatic treatment with loperamide 2 mg AM and at bedtime Patient's anemia is caused by the renal issues and not a GI bleed although I will do test stool for occult blood and if positive we will consider an upper endoscopy prior to discharge No need for a colonoscopy Thank you very much for the opportunity to participate in the care of this patient Other medical problems include End-stage renal disease soon to be on hemodialysis Diabetes mellitus type 2 Essential hypertension Right eye vitrectomy left breast biopsy and tubal ligation Time Spent With Patient Time: Total time spent is greater than 50% in coordination of care (as documented) at patient's floor/unit and/or counseling patient:
[2024-09-11] VITALS (28 sets, daily range): BP systolic 92–161; BP diastolic 67–102; PULSE 80–113; RESP 16–22; TEMP 35.8–36.8; O2SAT 96–100
[2024-09-11] MEDS: ACETAMINOPHEN 325 MG TABLET 650 MG PO ×2 (02:42→23:16)
[2024-09-11] MEDS: BENZONATATE 100 MG CAPSULE PO ×2 (02:43→21:09)
[2024-09-11 05:27] LABS: Basophils % (Auto) 0 % (0-2.5); Eosinophils % (Auto) 1 % (0-10); Immature Granulocytes % (Auto) 1 % (0-0); Immature Granulocytes Auto 0.04 Thou/mm3 (0.00-0.00); Lymphocytes # (Auto) 1.1 Thou/mm3 (1.0-4.8); Lymphocytes % (Auto) 14 % (10-50); Mean Corpuscular Hemoglobin 31.1 pg (25.0-35.0); Mean Corpuscular Volume 94 fL (80-100); Monocytes # (Auto) 0.5 Thou/mm3 (0.0-0.8); Monocytes % (Auto) 7 % (0-12); Neutrophils % (Auto) 78 % (37-80); Nucleated Red Blood Cell % 0 /100 WBC (0); Platelet Count 211 Thou/mm3 (140-440); RDW Standard Deviation 47.7 fL (36.4-46.3); Red Blood Count 2.12 Miln/mm3 (4.00-5.20); White Blood Count 7.7 Thou/mm3 (3.6-11.0)
[2024-09-11] MEDS: OFLOXACIN OP SOL 0.3% 5 ML BTL 1 DROP RIGHT EYE ×4 (05:37→21:03)
[2024-09-11] MEDS: prednisoLONE OP SUSP 1% 5 ML BTL 1 DROP RIGHT EYE ×4 (05:37→21:10)
[2024-09-11 05:39] LABS: Hemoglobin 6.6 g/dL (12.0-16.0)
[2024-09-11 06:04] LABS: Albumin, Serum 2.6 gm/dL (3.5-5.0); Anion Gap 7 (7-16); BUN/Creatinine Ratio 13 Ratio (12-20); Blood Urea Nitrogen 38 mg/dL (9-23); Calcium 8.1 mg/dL (8.3-10.6); Calcium (Corrected) 9.2 mg/dL (8.5-10.1); Carbon Dioxide 29.8 mMol/L (20.0-31.0); Chloride 102 mMol/L (98-107); Estimated Creatinine Clearance 17.3 mL/min (>60); Glucose 156 mg/dL (74-106); Magnesium 1.9 mg/dL (1.6-2.6); Osmolality,Calculated 289 (275-295); Phosphorous 3.4 mg/dL (2.4-5.1); Potassium 4.1 mMol/L (3.4-5.1); Sodium 139 mMol/L (136-145); eGFR 18 See Note
--- NOTE | 2024-09-11 07:26 | ESPR_ITS ---
Documentation for date of: 09/11/24 Subjective Subjective Interval history: patient is a 53-year-old female with significant past medical history of uncontrolled DM 2, CKD stage IV, hypertension was sent by wastewater plant operator Dr. Pedraza due to worsening of renal function labs. The patient underwent right eye vitrectomy at [facility] by photography manager Dr. Johnson. The patient admitted having chronic cough, but denied any chest pain or SOB, fever or chills, he admitted occasional diarrhea as she was recently diagnosed with Crohn's disease. In the ED her vitals were stable with blood pressure 139/74, pulse rate 112 saturating 99% on room air. The patient's last labs revealed hemoglobin 7.5, hematocrit 22.0, sodium 139, potassium 4.9, chloride 111, bicarb 18.5, BUN 65, creatinine 4.5, EGFR 11, blood sugar 175, corrected calcium 8.7, phosphorus 5.5, mild transaminitis with AST/ALT 83/66, ALP 142, UA revealed protein 3+, glucose 4+, blood 2+, WBC 6, bacteria rare. The patient was given 1 L IV LR bolus and started on 100 cc/h of LR and admitted to the floors. Nephrology consultation was done for further management of ARIK on CKD stage IV and electrolyte abnormalities. 09/07/2024: The patient was interviewed and examined at the bedside this morning. She reported doing well. Her vitals were fairly stable with heart rate 104. Hemoglobin 7.3, hematocrit 21.7, sodium 140, potassium 4.8, chloride 211, bicarb 18.2, BUN 58, creatinine 4.1, GFR 12. Mild transaminitis seen. Urine electrolytes and bilateral renal ultrasound was ordered that was significant for mild left hydronephrosis. We will continue with LR 100 cc/h and continue to monitor renal panel. 09/08/2024 comfortable. BUN/ Cr tad better. GFR < 15- d/w patient regarding HOSPITALIST options. Not a PD candidate. Her sister on dialysis. She is very sleptical. Time spnet 30min. If Cr still elevated- she agreed for HD in am. She has progressive D. Nephropathy 09/09/2024 patient currently seen in medical floor. Resting comfortably. Legally blind. Very pleasant lady. Blood sugar 103. Blood pressure 154/91, heart rate 106. Hemoglobin 7.3, platelets 202. Sodium 143, potassium 4.7, bicarbonate 21.6, BUN 46, creatinine 4, GFR 13, calcium 9.3, phosphorus 4.4, magnesium 1.6, iron saturation 7%. C-reactive protein 5.7, albumin 3. Hep panel pending. Patient supposed to get dialysis catheter-IR closed due to holiday. Will schedule dialysis tomorrow. Patient agreed for dialysis catheter and hemodialysis. 09/10/2024 Catrina is currently seen on dialysis. Creatinine still elevated. GFR less than 15. Had a right IJ dialysis catheter and is currently seen on her first session. Tolerating well although mild pain from the catheter site. Labs, medications have been reviewed. Hemoglobin 7.1-1 unit PRBC will be given. Creatinine 3.9 with a GFR of 13. Albumin 2.8. 09/11/2024 patient currently seen on her second dialysis session. Complaining of mild discomfort at the cath site. Hemoglobin significantly decreased. 2 units of blood transfusion ordered. No source identified. Suspect related to advanced kidney disease. Blood pressure 126/99, heart rate 99. Sodium 139, potassium 4.1, bicarbonate 29.8, BUN 38, creatinine 3, blood sugar 156, calcium 9.2, phosphorus 3.4, magnesium 1.9, albumin 2.6. Review of Systems Review of Systems Narrative Review of Systems: legally blind. Denies cp, sob. Decreased appetite Denies any nausea, vomiting. Feeling fatigued. Exam Vital Signs Temp Pulse Resp BP Pulse Ox O2 Del Method O2 Flow Rate 35.8 C L 111 H 16 121/77 99 Room Air 1.5 09/11/24 07:00 09/11/24 07:00 09/11/24 06:45 09/11/24 07:00 09/11/24 07:00 09/11/24 04:00 09/11/24 07:00 Narrative Exam General: No acute distress, Alert and Oriented x 3-on dialysis HEENT: Moist mucous membranes. legally blind Neck: Supple, No masses, No JVD CVS: S1S2 Regular rate and rhythm, No murmurs, rubs or gallops Lungs: Clear to auscultation with no accessory use, no wheeze no rhonchi Abd: Soft, NT/ND, +BS, no organomegaly Ext: No lower limb edema, warm and well perfused Skin: No rash-right IJ PermCath. Psych: Appropriate mood and affect Objective Labs 09/11/24 04:21 09/11/24 04:21 Labs: Laboratory Results - last 24 hr 09/08/24 09/10/24 09/11/24 08:07 08:30 04:21 WBC 7.3 7.7 RBC 2.27 L 2.12 L Hgb 7.1 L 6.6 L* Hct 21.2 L* 20.0 L* MCV 93 94 MCH 31.3 31.1 MCHC 33.5 33.0 RDW Std Deviation 47.8 H 47.7 H Plt Count 213 211 Neut % (Auto) 76 78 Lymph % (Auto) 15 14 [place] % (Auto) 7 7 Eos % (Auto) 1 1 Baso % (Auto) 0 0 Neut # (Auto) 5.6 6.0 Lymph # (Auto) 1.1 1.1 [place] # (Auto) 0.5 0.5 Eos # (Auto) 0.1 0.0 Baso # (Auto) 0.0 0.0 Immature Gran # (Auto) 0.03 H 0.04 H Absolute Nucleated RBC 0.00 0.00 Immature Gran % 0 1 H Nucleated RBC % 0 0 PT 11.6 INR 1.1 APTT 30.0 Sodium 141 139 Potassium 4.6 4.1 D Chloride 110 H 102 Carbon Dioxide 24.5 29.8 Anion Gap 7 7 BUN 45 H 38 H Creatinine 3.9 H 3.0 H D Estim Creat Clear Calc 13.3 L 17.3 L eGFR 13 L* 18 L BUN/Creatinine Ratio 12 13 Glucose 126 H 156 H Calculated Osmolality 294 289 Calcium 8.4 8.1 L Corrected Calcium 9.4 9.2 Phosphorus 3.4 Magnesium 1.9 Total Bilirubin 0.6 AST 30 ALT 25 Alkaline Phosphatase 93 Total Protein 5.8 Albumin 2.8 L 2.6 L Globulin 3.0 Albumin/Globulin Ratio 0.9 L Blood Type O Positive Antibody Screen NEGATIVE Crossmatch See Detail Blood Bank Wristband ID Yes Assessment & Plan Additional Assessment & Plan Additional Plan: patient is a 53-year-old female with significant past medical history of uncontrolled DM 2, CKD stage IV, hypertension was sent by wastewater plant operator Dr. Pedraza due to worsening of renal function labs. Nephrology consultation was done for further management of ARIK on CKD stage IV and electrolyte abnormalities. # end-stage renal disease secondary to diabetic nephropathy needing dialysis. Despite fluids there is no improvement in the renal function. -dc LR 100 cc/h -Avoid nephrotoxic drugs -Renal dose medications -Continue to monitor renal panel daily in the a.m. -US renal BI revealed mild left hydronephrosis HD catheter placed by Dr. Miramontes Patient currently seen on dialysis. Tolerating dialysis without any problems. Hemodialysis for 2.5 hours, 2K, ultrafiltration 1 L, Epogen 6000, no heparin ordered. 2 unit PRBC ordered with dialysis. Plan of care discussed with the dialysis nurse. Please see dialysis flowsheet for further details. #RTA type IV Secondary to chronic kidney disease Bicarbonate better-we will add bicarb during dialysis. dc bicitra #Hyperphosphatemia, improved Secondary to CKD Presented with phosphorus of 5.5 -Continue on sevelamer 800 Mg 3 times daily with meals -Continue to monitor phosphorus level daily in the a.m. #Primary hypertension Blood pressure in the range of 150s-160s/80s-to 90s -On IV labetalol 2.5 Mg every 4 hourly as needed for SBP 170 with holding parameters -Continue to hold home lisinopril in the setting of ARIK #Insulin-dependent diabetes mellitus type 2 #Status post vitrectomy -Management deferred to primary hospitalist team Spoke to primary team. Outpatient dialysis arrangements to be made. Quality - progress note Quality Measures Quality Measures: VTE prophylaxis Reason for Continued Stay Reason for Continued Stay: further monitoring
[2024-09-11] MEDS: INSULIN LISPRO (AdmeLOG) 1 UNIT/0.01 ML UNIT SC ×2 (08:06→17:50)
--- NOTE | 2024-09-11 09:13 | PC.SS ---
Follow up note: SS spoke to staff at [facility] [place] and the confirmed receiving new packet information for patient to start HD. They will start working on financial clearance. TB pending being read
--- NOTE | 2024-09-11 10:00 | PD.IMPROG ---
Documentation for date of: 09/11/24 Subjective Subjective Interval history: Diarrhea has improved tremendously Duodenal bulb biopsies and small intestine biopsy negative for celiac disease Exam Vital Signs Temp Pulse Resp BP Pulse Ox O2 Del Method O2 Flow Rate 96.9 F 101 H 18 140/80 H 100 Nasal Cannula 1.5 09/11/24 08:54 09/11/24 10:00 09/11/24 08:54 09/11/24 10:00 09/11/24 08:54 09/11/24 08:00 09/11/24 08:34 Objective Labs 09/11/24 15:32 09/11/24 04:21 Labs: Laboratory Results - last 24 hr 09/08/24 09/11/24 08:07 04:21 WBC 7.7 RBC 2.12 L Hgb 6.6 L* Hct 20.0 L* MCV 94 MCH 31.1 MCHC 33.0 RDW Std Deviation 47.7 H Plt Count 211 Neut % (Auto) 78 Lymph % (Auto) 14 [place] % (Auto) 7 Eos % (Auto) 1 Baso % (Auto) 0 Neut # (Auto) 6.0 Lymph # (Auto) 1.1 [place] # (Auto) 0.5 Eos # (Auto) 0.0 Baso # (Auto) 0.0 Immature Gran # (Auto) 0.04 H Absolute Nucleated RBC 0.00 Immature Gran % 1 H Nucleated RBC % 0 Sodium 139 Potassium 4.1 D Chloride 102 Carbon Dioxide 29.8 Anion Gap 7 BUN 38 H Creatinine 3.0 H D Estim Creat Clear Calc 17.3 L eGFR 18 L BUN/Creatinine Ratio 13 Glucose 156 H Calculated Osmolality 289 Calcium 8.1 L Corrected Calcium 9.2 Phosphorus 3.4 Magnesium 1.9 Albumin 2.6 L Blood Type O Positive Antibody Screen NEGATIVE Crossmatch See Detail Blood Bank Wristband ID Yes Impressions Impression: Functional bowel disease Continue current management Assessment & Plan A&P Narrative # Diarrhea about 3-4 stools a day most likely autonomic neuropathy caused by the underlying metabolic disorder and there is no evidence of inflammatory bowel disease on the previous colonoscopy done in January of 2024 As the ANCA antibody was negative as well as the colonic biopsies right colon left colon and rectum as well as terminal ileum were all negative for inflammatory bowel disease Symptomatic treatment with loperamide 2 mg AM and at bedtime Patient's anemia is caused by the renal issues and not a GI bleed although I will do test stool for occult blood and if positive we will consider an upper endoscopy prior to discharge No need for a colonoscopy Thank you very much for the opportunity to participate in the care of this patient Other medical problems include End-stage renal disease soon to be on hemodialysis Diabetes mellitus type 2 Essential hypertension Right eye vitrectomy left breast biopsy and tubal ligation Time Spent With Patient Time: Total time spent is greater than 50% in coordination of care (as documented) at patient's floor/unit and/or counseling patient:
[2024-09-11] MEDS: EPOETIN ALFA-EPBX INJ 10,000 UNIT/ML VIAL (ESRD) 10000 UNIT SC (10:17)
[2024-09-11] MEDS: HEPARIN SOD INJ 1000 UNIT/ML VIAL 10 ML 4100 UNIT INDWELLCAT (11:57)
--- NOTE | 2024-09-11 12:05 | PC.NURSE ---
receive pt. back from dialysis took ouyt 1 l fluid and received 1 unit in the Dialysis
[2024-09-11] MEDS: BENZOCAINE/MENTHOL 1 LOZENGE PO (13:29)
--- NOTE | 2024-09-11 15:07 | PC.SS ---
Follow up note: SS phoned [facility] to follow up on o/p chair time. They state they are still pending financial clearance.
--- NOTE | 2024-09-11 15:30 | ESPR_ITS ---
<Statement entered by Moe Meraz MD - 09/11/24 18:18> Senior Resident Attestation: I supervised/discussed management plan with internal medicine nurse practitioner physician Dr. Ramirez, and was involved in the care of this patient. I personally saw and examined the patient and discussed the assessment and plan with the entire medicine team, including my attending. I agree with the assessment and plan as documented. Patient's care was discussed with attending physician, Dr. De La Cruz. Moe Meraz MD PGY-2. Documentation for date of: 09/11/24 Subjective Subjective Interval history: Patient seen at bedside. No acute overnight events. She had one session of hemodialysis done yesterday, tolerating well. This morning, labs were reviewed and Hgb was 6.6. She had first unit of blood transfused and the second is scheduled to be given with dialysis, another session today. Other than that, creatinine is improving and patient has no complaints today. Exam Vital Signs Temp Pulse Resp BP Pulse Ox O2 Del Method O2 Flow Rate 97.1 F 107 H 17 156/93 H 100 Nasal Cannula 1 09/11/24 12:28 09/11/24 12:28 09/11/24 12:28 09/11/24 12:28 09/11/24 12:28 09/11/24 12:28 09/11/24 12:28 Narrative Exam GENERAL: AAOX3 NEURO: HEALTH PROMOTION OFFICER grossly intact, moves extremities x4 HEENT: Moist mucosa. Eyes open, symmetrical, & clear. Right IJ dialysis catheter CARDIO: No chest pain on palpation. Heart RRR, no obvious murmurs PULM: No noted coughing/dyspnea. Lungs CTA B/L GI: Abdomen soft, nondistended, no pain on palpation. BSx4 URO/LOGGING EQUIPMENT OPERATOR:: No further abnormalities noted. SKIN/MSK/EXT: No wounds/rashes/edema/amputations, no pain on palpation. Pedal pulses present B/L Objective Labs 09/11/24 15:32 09/11/24 04:21 Labs: Laboratory Results - last 24 hr 09/08/24 09/11/24 09/11/24 08:07 04:21 09:43 WBC 7.7 RBC 2.12 L Hgb 6.6 L* Hct 20.0 L* MCV 94 MCH 31.1 MCHC 33.0 RDW Std Deviation 47.7 H Plt Count 211 Neut % (Auto) 78 Lymph % (Auto) 14 Chambers % (Auto) 7 Eos % (Auto) 1 Baso % (Auto) 0 Neut # (Auto) 6.0 Lymph # (Auto) 1.1 Chambers # (Auto) 0.5 Eos # (Auto) 0.0 Baso # (Auto) 0.0 Immature Gran # (Auto) 0.04 H Absolute Nucleated RBC 0.00 Immature Gran % 1 H Nucleated RBC % 0 Sodium 139 Potassium 4.1 D Chloride 102 Carbon Dioxide 29.8 Anion Gap 7 BUN 38 H Creatinine 3.0 H D Estim Creat Clear Calc 17.3 L eGFR 18 L BUN/Creatinine Ratio 13 Glucose 156 H Calculated Osmolality 289 Calcium 8.1 L Corrected Calcium 9.2 Phosphorus 3.4 Magnesium 1.9 Albumin 2.6 L Blood Type O Positive O Positive Antibody Screen NEGATIVE NEGATIVE Crossmatch See Detail See Detail Blood Bank Wristband ID Yes Yes Quality Measures Quality Measures VTE prophylaxis (Heparin) Assessment & Plan Assessment Current Active Medications: Generic Name Dose Route Start Last Admin Trade Name Freq PRN Reason Stop Dose Admin Acetaminophen 650 mg 09/06/24 16:05 09/11/24 02:42 Acetaminophen 325 Mg Tablet PO 10/06/24 16:04 650 mg Q6H PRN Administration Fever >100 or pain 1-3 Atorvastatin Calcium 20 mg 09/10/24 21:00 09/10/24 20:40 Atorvastatin Calcium 20 Mg Tablet PO 10/06/24 20:59 20 mg HS DANIEL Administration Benzocaine 1 lozenge 09/08/24 19:15 09/11/24 13:29 Benzocaine/Menthol 1 Lozenge PO 10/08/24 19:14 1 lozenge Q3HR PRN Administration COUGH Protocol Benzonatate 100 mg 09/06/24 16:16 09/11/24 02:43 Benzonatate 100 Mg Capsule PO 10/06/24 16:15 100 mg Q12H PRN Administration cough Protocol Dextrose 25 ml 09/06/24 16:05 Dextrose 50%-Water Inj 50 Ml Syringe IV 10/06/24 16:04 Q15MIN PRN BG 50-70 responsive npo pt Dextrose 50 ml 09/06/24 16:05 Dextrose 50%-Water Inj 50 Ml Syringe IV 10/06/24 16:04 Q15MIN PRN BG <50 OR BG <70 & pt unresponsive Glucagon 1 mg 09/06/24 16:05 Glucagon Inj 1 Mg Vial IM Q15MIN PRN BG <70, and no IV access Heparin Sodium (Porcine) 5,000 unit 09/06/24 16:15 09/09/24 05:57 Heparin Sod Inj 5000 Unit/Ml Vial SC 09/20/24 16:14 Not Given Q12H DANIEL Heparin Sodium (Porcine) 4,100 unit 09/10/24 13:19 09/11/24 11:57 Heparin Sod Inj 1000 Unit/Ml Vial 10 Ml INDWELLCAT 09/24/24 13:18 4,100 unit X1 PRN Administration DIALYSIS Hydroxyzine HCl 10 mg 09/06/24 21:00 09/07/24 20:27 Hydroxyzine Hcl 10 Mg Tablet PO 10/06/24 20:59 10 mg HS DANIEL Administration Insulin Human Lispro 0 unit 09/06/24 17:00 09/11/24 11:43 Insulin Lispro (Admelog) 1 Unit/0.01 Ml Unit SC 10/06/24 16:59 Not Given AC [facility] Protocol Labetalol HCl 2.5 mg 09/06/24 20:29 Labetalol Inj 5 Mg/Ml Vial 20 Ml IVP 10/06/24 16:38 Q4H PRN SBP > 170 Lactobacillus Rhamnosus 1 cap 09/09/24 21:00 09/11/24 09:07 Lactobacillus Rhamnosus 1 Cap PO 10/09/24 20:59 Not Given BID DANIEL Loperamide HCl 2 mg 09/09/24 07:42 Loperamide 2 Mg Capsule PO 09/16/24 08:59 BID PRN diarrhea Ofloxacin 1 drop 09/06/24 17:00 09/11/24 12:58 Ofloxacin Op Marjorie 0.3% 5 Ml Btl RIGHT EYE 09/15/24 16:59 1 drop QID DANIEL Administration Ondansetron HCl 4 mg 09/06/24 16:05 09/07/24 23:27 Ondansetron Inj 2 Mg/Ml Inj 2 Ml IV 10/06/24 16:04 4 mg Q6H PRN Administration NAUSEA OR VOMITING Protocol Pantoprazole Sodium 40 mg 09/07/24 09:00 09/11/24 09:07 Pantoprazole 40 Mg Tablet PO 10/07/24 08:59 Not Given QDAY DANIEL Prednisolone Acetate 1 drop 09/06/24 17:00 09/11/24 12:58 Prednisolone Op Susp 1% 5 Ml Btl RIGHT EYE 09/15/24 16:59 1 drop QID DANIEL Administration Sennosides 1 tab 09/06/24 16:05 Senna Tablet PO 10/06/24 16:04 QDAY PRN constipation Protocol Vitamin B Complex/Vit C/Folic Acid 1 tab 09/09/24 16:00 09/11/24 09:07 Vit B12/Vit C/Fa (Nephrovite) Tablet PO 10/09/24 15:59 Not Given QDAY DANIEL Zolpidem Tartrate 2.5 mg 09/08/24 15:16 Zolpidem 5 Mg Tablet PO 10/08/24 15:15 HS PRN INSOMNIA Plan Summary: The patient is a 53 y/o female with uncontrolled insulin-dependent diabetes type 2, CKD stage IV, hypertension who is admitted for ARIK. #ESRD on HD s/p RT IJ dialysis temp catheter ` - Patient initially had ARIK, likely prerenal, Creatinine seems to be 2.3 at baseline previously ; but regressed from baseline CKD stage IV -> stage V - Follows Dr. Pedraza nephrology outpatient - 09/09 : Cr worsened 3.8 -> 4 with GFR remains in ESRD range - F/u HIV, hep panel : negative - 09/10 : patient had a right IJ dialysis catheter today 09/10 and first session of HD -09/11 : She had one session of hemodialysis done yesterday, tolerating well. This morning, labs were reviewed and Hgb was 6.6. She had first unit of blood transfused and the second is scheduled to be given with dialysis, another session today. Other than that, creatinine is improving and patient has no complaints today. Plan: - 2nd session of HD today ? Nephrology consulted, appreciate recs ? Strict JOSE's ? Avoid nephrotoxic agents ? Renally dose medications #Chronic diarrhea - resolved #Normocytic anemia #Hx of Hemorrhoids - Hx of chronic diarrhea symptoms - Last colonoscopy in May, 2024 with biopsy: ruled out IBD or microscopic colitis, only remarkable for hemorrhoids. Histopathology negative. - GI consulted, given Hb 7 and patient states she has Crohn's disease - FOBT negative, anemia most likley secondary to renal disease/ESRD - Iron panel : low iron stores - Dr Iyer consulted, appreciate recommendations, unlikely GIB. ANCA and histopathology negative on last testing, calprotectin only mildly elevated. - 09/10 : Hemoglobin between 7 - 7.2, MCV 90s ; patient received Epogen x1 during HD - 09/11: Hemoglobin this morning- 6.6, receiving 2units of pRBCs. Pending other GI recommendations Plan: - Transfusing 2 units of pRBCs. Post transfusion H&H pending - Loperamide 2mg PO PRN HS as per GI recs - Nephrovite started 1tab qD - Lactobacillus supplements added #Primary hypertension BP 140-150/80-90s Plan: - Started Losartan 25mg daily - Anticipate improvement after fluid removal with HD #History of Insulin-dependent diabetes type 2. Seems to be uncontrolled Takes 6 units of Basaglar at home - 09/09 : blood sugar <180 during hospitalization - 09/10 : NPO until procedure, diet ordered. BG 130s Plan: ? Continue SSI ? Hypoglycemic protocol in place ? Renal Carb consistent low diet ? Blood glucose checks with meals #s/p recent vitrectomy - postoperative day 4 Patient said she got procedure for a bleeding right eye Patient does have eyepatch and right eye Plan: ? Resumed home prednisolone eyedrops 1 drop in right eye 4 times a day ? Resumed home ofloxacin eyedrops 1 drop in right eye 4 times a day Health Maintenance: Disposition: Med/Surg. Will need HD x3 sessions inpatient, dialysis chair time prior to DC DVT prophylaxis: Heparin q12h GI prophylaxis: Protonix Diet: Carb low Renal diet CODE STATUS: Full code Case was discussed with Dr Acevedo PGY-2 and attending physician, Dr De La Cruz Disclaimer: This note was dictated by speech recognition. Minor errors in engineer internship may be present due to voice recognition software. Attending Provider Attestation/Addendum I have examined the patient, reviewed labs and imaging findings, discussed the case with the resident(s), and reviewed entered orders. I agree with the plan of care as outlined in this note, with these additional summaries/recommendations: No acute overnight events. Patient has no new complaints today. She is tolerating dialysis although endorses fatigue afterwards. Case management working on outpatient chair time. Nephrology following. Patient reports improvement in diarrhea with loperamide. Patient has normocytic anemia and hemoglobin down to 6.6 and PRBCs ordered. Normocytic anemia most likely secondary to anemia of chronic disease from renal disease. Follow-up posttransfusion H&H. Continue home antihypertensives and insulin sliding scale for diabetes mellitus type 2. Patient updated on the plan and in agreement. Repeat hematology and chemistry panel in AM. Dr. Jono MD
[2024-09-11 15:56] LABS: Hematocrit 29.2 % (36.0-46.0); Hemoglobin 10.1 g/dL (12.0-16.0)
[2024-09-11] MEDS: SENNA TABLET 1 TAB PO (17:39)
[2024-09-11 18:18] LABS: Path Review Blood Smear Sent to Pathologist
[2024-09-11] MEDS: ATORVASTATIN CALCIUM 20 MG TABLET PO (21:04)
[2024-09-11] MEDS: LACTOBACILLUS RHAMNOSUS 1 CAP PO (21:05)
[2024-09-12] VITALS (7 sets, daily range): BP systolic 128–150; BP diastolic 72–102; PULSE 69–115; RESP 16–20; TEMP 36–36.6; O2SAT 96–100
[2024-09-12] MEDS: OFLOXACIN OP SOL 0.3% 5 ML BTL 1 DROP RIGHT EYE ×4 (05:29→20:15)
[2024-09-12] MEDS: prednisoLONE OP SUSP 1% 5 ML BTL 1 DROP RIGHT EYE ×4 (05:29→20:15)
[2024-09-12] MEDS: VIT B12/Vit C/FA (Nephrovite) TABLET 1 TAB PO (08:38)
[2024-09-12] MEDS: PANTOPRAZOLE 40 MG TABLET PO (08:38)
[2024-09-12] MEDS: LACTOBACILLUS RHAMNOSUS 1 CAP PO ×2 (08:39→20:14)
[2024-09-12 09:52] LABS: Basophils % (Auto) 0 % (0-2.5); Eosinophils # (Auto) 0.1 Thou/mm3 (0.0-0.5); Eosinophils % (Auto) 1 % (0-10); Hematocrit 31.9 % (36.0-46.0); Hemoglobin 10.8 g/dL (12.0-16.0); Immature Granulocytes % (Auto) 0 % (0-0); Immature Granulocytes Auto 0.04 Thou/mm3 (0.00-0.00); Lymphocytes # (Auto) 1.7 Thou/mm3 (1.0-4.8); Lymphocytes % (Auto) 16 % (10-50); Mean Corpuscular HGB Conc 33.9 g/dl (31.0-37.0); Mean Corpuscular Hemoglobin 30.6 pg (25.0-35.0); Mean Corpuscular Volume 90 fL (80-100); Monocytes # (Auto) 0.7 Thou/mm3 (0.0-0.8); Monocytes % (Auto) 7 % (0-12); Neutrophils # (Auto) 7.8 Thou/mm3 (1.8-7.7); Neutrophils % (Auto) 76 % (37-80); Nucleated Red Blood Cell % 0 /100 WBC (0); Platelet Count 237 Thou/mm3 (140-440); RDW Standard Deviation 49.1 fL (36.4-46.3); Red Blood Count 3.53 Miln/mm3 (4.00-5.20); White Blood Count 10.2 Thou/mm3 (3.6-11.0)
--- NOTE | 2024-09-12 09:57 | EKG_ITS ---
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
--- NOTE | 2024-09-12 09:57 | PC.SS ---
Addendum entered by Hillary Rangel 09/12/24 13:48: SS received p/c from dialysis center indicating that Supervisor [employer] only wants patient to have dialysis 2 x a week to start out. New schedule will be every Monday and Monday's. Addendum entered by Hillary Rangel 09/12/24 11:43: Patient has an o/p dialysis schedule of every M/W/F @ 2:30p.m. chair time. Patient can start . [facility] Original Note: Follow up note: SS contacted [facility] and they confirmed patient financial clearance was approved. They are waiting on Director to provide chair time. They will contact me back with schedule. Patient ready for d/c today.
[2024-09-12 10:09] LABS: INR 1.1 (0.9-1.3); Partial Thromboplastin Time 33.9 Seconds (22.0-36.0); Prothrombin Time 11.7 Seconds (9.0-12.2)
[2024-09-12 10:19] LABS: Anion Gap 7 (7-16); BUN/Creatinine Ratio 11 Ratio (12-20); Blood Urea Nitrogen 32 mg/dL (9-23); Calcium 8.6 mg/dL (8.3-10.6); Calcium (Corrected) 9.4 mg/dL (8.5-10.1); Carbon Dioxide 30.2 mMol/L (20.0-31.0); Chloride 100 mMol/L (98-107); Creatinine (Component) 2.8 mg/dL (0.6-1.3); Estimated Creatinine Clearance 18.5 mL/min (>60); Glucose 155 mg/dL (74-106); Magnesium 1.8 mg/dL (1.6-2.6); Osmolality,Calculated 283 (275-295); Phosphorous 2.8 mg/dL (2.4-5.1); Potassium 3.4 mMol/L (3.4-5.1); Sodium 137 mMol/L (136-145); eGFR 19 See Note
[2024-09-12] MEDS: INSULIN LISPRO (AdmeLOG) 1 UNIT/0.01 ML UNIT SC ×2 (12:27→16:59)
--- NOTE | 2024-09-12 13:38 | PD.NEPHPROG ---
Documentation for date of: 09/12/24 Subjective Subjective Interval history: patient is a 53-year-old female with significant past medical history of uncontrolled DM 2, CKD stage IV, hypertension was sent by inspector conveyor line Dr. Pedraza due to worsening of renal function labs. The patient underwent right eye vitrectomy at [facility] [address] by wheelman Dr[address] Johnson. The patient admitted having chronic cough, but denied any chest pain or SOB, fever or chills, he admitted occasional diarrhea as she was recently diagnosed with Crohn's disease. In the ED her vitals were stable with blood pressure 139/74, pulse rate 112 saturating 99% on room air. The patient's last labs revealed hemoglobin 7.5, hematocrit 22.0, sodium 139, potassium 4.9, chloride 111, bicarb 18.5, BUN 65, creatinine 4.5, EGFR 11, blood sugar 175, corrected calcium 8.7, phosphorus 5.5, mild transaminitis with AST/ALT 83/66, ALP 142, UA revealed protein 3+, glucose 4+, blood 2+, WBC 6, bacteria rare. The patient was given 1 L IV LR bolus and started on 100 cc/h of LR and admitted to the floors. Nephrology consultation was done for further management of ARIK on CKD stage IV and electrolyte abnormalities. 09/07/2024: The patient was interviewed and examined at the bedside this morning. She reported doing well. Her vitals were fairly stable with heart rate 104. Hemoglobin 7.3, hematocrit 21.7, sodium 140, potassium 4.8, chloride 211, bicarb 18.2, BUN 58, creatinine 4.1, GFR 12. Mild transaminitis seen. Urine electrolytes and bilateral renal ultrasound was ordered that was significant for mild left hydronephrosis. We will continue with LR 100 cc/h and continue to monitor renal panel. 09/08/2024 comfortable. BUN/ Cr tad better. GFR < 15- d/w patient regarding DISPENSARY CLERK options. Not a PD candidate. Her sister on dialysis. She is very sleptical. Time spnet 30min. If Cr still elevated- she agreed for HD in am. She has progressive D. Nephropathy 09/09/2024 patient currently seen in medical floor. Resting comfortably. Legally blind. Very pleasant lady. Blood sugar 103. Blood pressure 154/91, heart rate 106. Hemoglobin 7.3, platelets 202. Sodium 143, potassium 4.7, bicarbonate 21.6, BUN 46, creatinine 4, GFR 13, calcium 9.3, phosphorus 4.4, magnesium 1.6, iron saturation 7%. C-reactive protein 5.7, albumin 3. Hep panel pending. Patient supposed to get dialysis catheter-IR closed due to holiday. Will schedule dialysis tomorrow. Patient agreed for dialysis catheter and hemodialysis. 09/10/2024 Catrina is currently seen on dialysis. Creatinine still elevated. GFR less than 15. Had a right IJ dialysis catheter and is currently seen on her first session. Tolerating well although mild pain from the catheter site. Labs, medications have been reviewed. Hemoglobin 7.1-1 unit PRBC will be given. Creatinine 3.9 with a GFR of 13. Albumin 2.8. 09/11/2024 patient currently seen on her second dialysis session. Complaining of mild discomfort at the cath site. Hemoglobin significantly decreased. 2 units of blood transfusion ordered. No source identified. Suspect related to advanced kidney disease. Blood pressure 126/99, heart rate 99. Sodium 139, potassium 4.1, bicarbonate 29.8, BUN 38, creatinine 3, blood sugar 156, calcium 9.2, phosphorus 3.4, magnesium 1.9, albumin 2.6. 09/12/2024 patient currently seen in medical floor. He did receive 2 dialysis treatments. Hemoglobin now stable. So far she received 2 blood transfusions. Outpatient dialysis arranged for Monday, Monday, Monday. Postdialysis tomorrow can be discharged. Review of Systems Review of Systems Narrative Review of Systems: legally blind. Denies cp, sob. Decreased appetite Denies any nausea, vomiting. Feeling fatigued. Exam Vital Signs Temp Pulse Resp BP Pulse Ox O2 Del Method O2 Flow Rate 36.0 C 107 H 16 149/91 H 99 Nasal Cannula 1 09/12/24 12:09/12/24 12:09/12/24 12:09/12/24 12:09/12/24 12:09/12/24 12:09/12/24 12:00 Narrative Exam General: No acute distress, Alert and Oriented x 3- HEENT: Moist mucous membranes. legally blind Neck: Supple, No masses, No JVD CVS: S1S2 Regular rate and rhythm, No murmurs, rubs or gallops Lungs: Clear to auscultation with no accessory use, no wheeze no rhonchi Abd: Soft, NT/ND, +BS, no organomegaly Ext: No lower limb edema, warm and well perfused Skin: No rash-right IJ PermCath. Psych: Appropriate mood and affect Objective Labs 09/13/24 04:40 09/13/24 04:40 Labs: Laboratory Results - last 24 hr 09/11/24 09/11/24 09/12/24 04:21 15:32 08:45 WBC 10.2 RBC 3.53 L Hgb 10.1 L D 10.8 L Hct 29.2 L 31.9 L MCV 90 MCH 30.6 MCHC 33.9 RDW Std Deviation 49.1 H Plt Count 237 Neut % (Auto) 76 Lymph % (Auto) 16 [place] % (Auto) 7 Eos % (Auto) 1 Baso % (Auto) 0 Neut # (Auto) 7.8 H Lymph # (Auto) 1.7 [place] # (Auto) 0.7 Eos # (Auto) 0.1 Baso # (Auto) 0.0 Immature Gran # (Auto) 0.04 H Absolute Nucleated RBC 0.00 Immature Gran % 0 Nucleated RBC % 0 Smear Path Review Sent to Pathologist PT 11.7 INR 1.1 APTT 33.9 Sodium 137 Potassium 3.4 D Chloride 100 Carbon Dioxide 30.2 Anion Gap 7 BUN 32 H Creatinine 2.8 H Estim Creat Clear Calc 18.5 L eGFR 19 L BUN/Creatinine Ratio 11 L Glucose 155 H Calculated Osmolality 283 Calcium 8.6 Corrected Calcium 9.4 Phosphorus 2.8 Magnesium 1.8 Albumin 3.0 L Assessment & Plan Additional Assessment & Plan Additional Plan: patient is a 53-year-old female with significant past medical history of uncontrolled DM 2, CKD stage IV, hypertension was sent by inspector conveyor line Dr. Pedraza due to worsening of renal function labs. Nephrology consultation was done for further management of ARIK on CKD stage IV and electrolyte abnormalities. # end-stage renal disease secondary to diabetic nephropathy needing dialysis. Despite fluids there is no improvement in the renal function. -dc LR 100 cc/h -Avoid nephrotoxic drugs -Renal dose medications -Continue to monitor renal panel daily in the a.m. -US renal BI revealed mild left hydronephrosis HD catheter placed by Dr. Miramontes Patient so far received 2 dialysis treatments. Plan of care discussed with the dialysis nurse. Next dialysis scheduled for tomorrow #RTA type IV Secondary to chronic kidney disease Bicarbonate better-we will add bicarb during dialysis. dc bicitra #Hyperphosphatemia, improved Secondary to CKD Presented with phosphorus of 5.5 -Continue on sevelamer 800 Mg 3 times daily with meals -Continue to monitor phosphorus level daily in the a.m. #Primary hypertension Blood pressure in the range of 150s-160s/80s-to 90s -On IV labetalol 2.5 Mg every 4 hourly as needed for SBP 170 with holding parameters -Continue to hold home lisinopril in the setting of ARIK #Insulin-dependent diabetes mellitus type 2 #Status post vitrectomy -Management deferred to primary hospitalist team Spoke to primary team. Outpatient dialysis arrangements to be made. Quality - progress note Quality Measures Quality Measures: VTE prophylaxis Reason for Continued Stay Reason for Continued Stay: further monitoring
--- NOTE | 2024-09-12 15:38 | ESPR_ITS ---
Documentation for date of: 09/12/24 Subjective Subjective Interval history: Patient seen at bedside. No acute overnight events. Patient had a second session of dialysis yesterday. Labs reviewed today hemoglobin at 10.8 and creatinine 2.8. instructional media services technician have been able to get to return for outpatient dialysis order for patient, with first session done on September 16. In the interim, will have another session of hemodialysis tomorrow and discharge afterwards. Exam Vital Signs Temp Pulse Resp BP Pulse Ox O2 Del Method O2 Flow Rate 96.8 F 107 H 16 149/91 H 99 Nasal Cannula 1 09/12/24 12:00 09/12/24 12:00 09/12/24 12:00 09/12/24 12:00 09/12/24 12:00 09/12/24 12:09/12/24 12:00 Narrative Exam GENERAL: AAOX3 NEURO: CHALK MACHINE OPERATOR grossly intact, moves extremities x4 HEENT: Moist mucosa. Eyes open, symmetrical, blind at baseline. Right IJ dialysis catheter CARDIO: No chest pain on palpation. Heart RRR, no obvious murmurs PULM: No noted coughing/dyspnea. Lungs CTA B/L GI: Abdomen soft, nondistended, no pain on palpation. BSx4 URO/CAPACITY PLANNING ANALYST:: No further abnormalities noted. SKIN/MSK/EXT: No wounds/rashes/edema/amputations, no pain on palpation. Pedal pulses present B/L Objective Labs 09/13/24 04:40 09/13/24 04:40 Labs: Laboratory Results - last 24 hr 09/11/24 09/11/24 09/12/24 04:21 15:32 08:45 WBC 10.2 RBC 3.53 L Hgb 10.1 L D 10.8 L Hct 29.2 L 31.9 L MCV 90 MCH 30.6 MCHC 33.9 RDW Std Deviation 49.1 H Plt Count 237 Neut % (Auto) 76 Lymph % (Auto) 16 [place] % (Auto) 7 Eos % (Auto) 1 Baso % (Auto) 0 Neut # (Auto) 7.8 H Lymph # (Auto) 1.7 [place] # (Auto) 0.7 Eos # (Auto) 0.1 Baso # (Auto) 0.0 Immature Gran # (Auto) 0.04 H Absolute Nucleated RBC 0.00 Immature Gran % 0 Nucleated RBC % 0 Smear Path Review Sent to Pathologist PT 11.7 INR 1.1 APTT 33.9 Sodium 137 Potassium 3.4 D Chloride 100 Carbon Dioxide 30.2 Anion Gap 7 BUN 32 H Creatinine 2.8 H Estim Creat Clear Calc 18.5 L eGFR 19 L BUN/Creatinine Ratio 11 L Glucose 155 H Calculated Osmolality 283 Calcium 8.6 Corrected Calcium 9.4 Phosphorus 2.8 Magnesium 1.8 Albumin 3.0 L Quality Measures Quality Measures VTE prophylaxis (Heparin) Assessment & Plan Assessment Current Active Medications: Generic Name Dose Route Start Last Admin Trade Name Freq PRN Reason Stop Dose Admin Acetaminophen 650 mg 09/06/24 16:05 09/11/24 23:16 Acetaminophen 325 Mg Tablet PO 10/06/24 16:04 650 mg Q6H PRN Administration Fever >100 or pain 1-3 Atorvastatin Calcium 20 mg 09/10/24 21:00 09/11/24 21:04 Atorvastatin Calcium 20 Mg Tablet PO 10/06/24 20:59 20 mg HS DANIEL Administration Benzocaine 1 lozenge 09/08/24 19:15 09/11/24 13:29 Benzocaine/Menthol 1 Lozenge PO 10/08/24 19:14 1 lozenge Q3HR PRN Administration COUGH Protocol Benzonatate 100 mg 09/06/24 16:16 09/11/24 21:09 Benzonatate 100 Mg Capsule PO 10/06/24 16:15 100 mg Q12H PRN Administration cough Protocol Dextrose 25 ml 09/06/24 16:05 Dextrose 50%-Water Inj 50 Ml Syringe IV 10/06/24 16:04 Q15MIN PRN BG 50-70 responsive npo pt Dextrose 50 ml 09/06/24 16:05 Dextrose 50%-Water Inj 50 Ml Syringe IV 10/06/24 16:04 Q15MIN PRN BG <50 OR BG <70 & pt unresponsive Glucagon 1 mg 09/06/24 16:05 Glucagon Inj 1 Mg Vial IM Q15MIN PRN BG <70, and no IV access Heparin Sodium (Porcine) 5,000 unit 09/06/24 16:15 09/09/24 05:57 Heparin Sod Inj 5000 Unit/Ml Vial SC 09/20/24 16:14 Not Given Q12H DANIEL Heparin Sodium (Porcine) 4,100 unit 09/10/24 13:19 09/11/24 11:57 Heparin Sod Inj 1000 Unit/Ml Vial 10 Ml INDWELLCAT 09/24/24 13:18 4,100 unit X1 PRN Administration DIALYSIS Hydroxyzine HCl 10 mg 09/06/24 21:00 09/07/24 20:27 Hydroxyzine Hcl 10 Mg Tablet PO 10/06/24 20:59 10 mg HS DANIEL Administration Insulin Human Lispro 0 unit 09/06/24 17:00 09/12/24 12:27 Insulin Lispro (Admelog) 1 Unit/0.01 Ml Unit SC 10/06/24 16:59 2 unit AC DANIEL Administration Protocol Labetalol HCl 2.5 mg 09/06/24 20:29 Labetalol Inj 5 Mg/Ml Vial 20 Ml IVP 10/06/24 16:38 Q4H PRN SBP > 170 Lactobacillus Rhamnosus 1 cap 09/09/24 21:00 09/12/24 08:39 Lactobacillus Rhamnosus 1 Cap PO 10/09/24 20:59 1 cap BID DANIEL Administration Loperamide HCl 2 mg 09/09/24 07:42 Loperamide 2 Mg Capsule PO 09/16/24 08:59 BID PRN diarrhea Ofloxacin 1 drop 09/06/24 17:00 09/12/24 12:28 Ofloxacin Op Marjorie 0.3% 5 Ml Btl RIGHT EYE 09/15/24 16:59 1 drop QID DANIEL Administration Ondansetron HCl 4 mg 09/06/24 16:05 09/07/24 23:27 Ondansetron Inj 2 Mg/Ml Inj 2 Ml IV 10/06/24 16:04 4 mg Q6H PRN Administration NAUSEA OR VOMITING Protocol Pantoprazole Sodium 40 mg 09/07/24 09:00 09/12/24 08:38 Pantoprazole 40 Mg Tablet PO 10/07/24 08:59 40 mg QDAY DANIEL Administration Prednisolone Acetate 1 drop 09/06/24 17:00 09/12/24 12:28 Prednisolone Op Susp 1% 5 Ml Btl RIGHT EYE 09/15/24 16:59 1 drop QID DANIEL Administration Sennosides 1 tab 09/06/24 16:05 09/11/24 17:39 Senna Tablet PO 10/06/24 16:04 1 tab QDAY PRN Administration constipation Protocol Vitamin B Complex/Vit C/Folic Acid 1 tab 09/09/24 16:00 09/12/24 08:38 Vit B12/Vit C/Fa (Nephrovite) Tablet PO 10/09/24 15:59 1 tab QDAY DANIEL Administration Zolpidem Tartrate 2.5 mg 09/08/24 15:16 Zolpidem 5 Mg Tablet PO 10/08/24 15:15 HS PRN INSOMNIA Plan Summary: The patient is a 53 y/o female with uncontrolled insulin-dependent diabetes type 2, CKD stage IV, hypertension who is admitted for ARIK. #ESRD on HD s/p RT IJ dialysis temp catheter ` - Patient initially had ARIK, likely prerenal, Creatinine seems to be 2.3 at baseline previously ; but regressed from baseline CKD stage IV -> stage V - Follows Dr. Pedraza nephrology outpatient - 09/09 : Cr worsened 3.8 -> 4 with GFR remains in ESRD range - F/u HIV, hep panel : negative - 09/10 : patient had a right IJ dialysis catheter today 09/10 and first session of HD -09/11 : She had one session of hemodialysis done yesterday, tolerating well. This morning, labs were reviewed and Hgb was 6.6. She had first unit of blood transfused and the second is scheduled to be given with dialysis, another session today. Other than that, creatinine is improving and patient has no complaints today. 09/12: Patient had a second session of dialysis yesterday. Labs reviewed today hemoglobin at 10.8 and creatinine 2.8. instructional media services technician have been able to get to return for outpatient dialysis order for patient, with first session done on September 16. Plan: - Scheduled for 3rd session of HD tomorrow ? Nephrology consulted, appreciate recs ? Strict I&O's ? Avoid nephrotoxic agents ? Renally dose medications #Chronic diarrhea - resolved #Normocytic anemia #Hx of Hemorrhoids - Hx of chronic diarrhea symptoms - Last colonoscopy in May, 2024 with biopsy: ruled out IBD or microscopic colitis, only remarkable for hemorrhoids. Histopathology negative. - GI consulted, given Hb 7 and patient states she has Crohn's disease - FOBT negative, anemia most likley secondary to renal disease/ESRD - Iron panel : low iron stores - Dr Iyer consulted, appreciate recommendations, unlikely GIB. ANCA and histopathology negative on last testing, calprotectin only mildly elevated. - 09/10 : Hemoglobin between 7 - 7.2, MCV 90s ; patient received Epogen x1 during HD - 09/11: Hemoglobin this morning- 6.6, receiving 2units of pRBCs. Pending other GI recommendations 09/12: Hemoglobin today- 10.8 Plan: - Loperamide 2mg PO PRN HS as per GI recs - Nephrovite started 1tab qD - Lactobacillus supplements added #Primary hypertension BP 140-150/80-90s Plan: - Started Losartan 25mg daily - Anticipate improvement after fluid removal with HD #History of Insulin-dependent diabetes type 2. Seems to be uncontrolled Takes 6 units of Basaglar at home - 09/09 : blood sugar <180 during hospitalization - 09/10 : NPO until procedure, diet ordered. BG 130s Plan: ? Continue SSI ? Hypoglycemic protocol in place ? Renal Carb consistent low diet ? Blood glucose checks with meals #s/p recent vitrectomy - postoperative day 4 Patient said she got procedure for a bleeding right eye Patient does have eyepatch and right eye Plan: ? Resumed home prednisolone eyedrops 1 drop in right eye 4 times a day ? Resumed home ofloxacin eyedrops 1 drop in right eye 4 times a day Health Maintenance: Disposition: Med/Surg. Pending 3rd session of HD and DC DVT prophylaxis: Heparin q12h GI prophylaxis: Protonix Diet: Carb low Renal diet CODE STATUS: Full code Case was discussed with Dr Castro PGY-2 and attending physician, Dr De La Cruz Disclaimer: This note was dictated by speech recognition. Minor errors in rubber block layer may be present due to voice recognition software. LPatient examined and case discussed with the team including attending physician. Note reviewed, I agree with the care plan as documented. Dispo: s/p HD x3 sessions in patient. HD chair time set up, patient kaia be discharged tomorrow 09/13/2024 for outpatient HD. Nephrology following, appreciate recommendations. HIV, hep panel and TB negative. - Les Castro MD, PGY 2 L Attending Provider Attestation/Addendum I have examined the patient, reviewed labs and imaging findings, discussed the case with the resident(s), and reviewed entered orders. I agree with the plan of care as outlined in this note, with these additional summaries/recommendations: Patient seen at bedside. No acute overnight events. Patient has been tolerating hemodialysis well. Case management/social workers have been working on arranging outpatient dialysis chair time. Patient will remain hospitalized for hemodialysis in a.m. tomorrow 09/13/2024 and then likely discharge. Patient will continue on Monday, Monday, and Monday dialysis schedule per nephrology. Continue pantoprazole for GERD. Continue insulin sliding scale with Accu-Cheks for diabetes mellitus type 2. A1c 6.6%. She continues to state diarrhea has significantly improved with loperamide and now endorses constipation. Hemoglobin has stabilized after blood transfusion and hemoglobin 10.8 today. Anemia secondary to chronic disease from ESRD. Continue Epogen per nephrology recs. Dr. Jono MD
--- NOTE | 2024-09-12 16:43 | PC.PT ---
Patient will be D/C from PT services 08/25 patient is xI with bed mobility, transfers, and ambulation with 1 staff assist for her vision issues. Patient is safe to ambulate to the bathroom and in the [place] with 1 staff assist for safety and to help guide her since her vision is poor. RN made aware.
[2024-09-12] MEDS: LACTULOSE SYRUP 20 GM/30 ML UDC PO (16:46)
[2024-09-12] MEDS: POLYETHYLENE GLYCOL 17 GM PACKET PO (16:47)
--- NOTE | 2024-09-12 17:34 | PC.NURSE ---
Patient vomitted after swallowing lactulose and miralax. Stated after vomiting no longer nauseous. Dr. Infante notified. Also notified Dr. Infante of HR 116.
--- NOTE | 2024-09-12 19:36 | ESPR_ITS ---
Documentation for date of: 09/12/24 Subjective Subjective Interval history: No further diarrhea Continue current management Exam Vital Signs Temp Pulse Resp BP Pulse Ox O2 Del Method O2 Flow Rate 96.8 F 115 H 16 146/90 H 98 Nasal Cannula 1 09/12/24 16:00 09/12/24 16:00 09/12/24 16:00 09/12/24 16:00 09/12/24 16:00 09/12/24 16:00 09/12/24 16:00 Objective Labs 09/12/24 08:45 09/12/24 08:45 Labs: Laboratory Results - last 24 hr 09/12/24 08:45 WBC 10.2 RBC 3.53 L Hgb 10.8 L Hct 31.9 L MCV 90 MCH 30.6 MCHC 33.9 RDW Std Deviation 49.1 H Plt Count 237 Neut % (Auto) 76 Lymph % (Auto) 16 [place] % (Auto) 7 Eos % (Auto) 1 Baso % (Auto) 0 Neut # (Auto) 7.8 H Lymph # (Auto) 1.7 [place] # (Auto) 0.7 Eos # (Auto) 0.1 Baso # (Auto) 0.0 Immature Gran # (Auto) 0.04 H Absolute Nucleated RBC 0.00 Immature Gran % 0 Nucleated RBC % 0 PT 11.7 INR 1.1 APTT 33.9 Sodium 137 Potassium 3.4 D Chloride 100 Carbon Dioxide 30.2 Anion Gap 7 BUN 32 H Creatinine 2.8 H Estim Creat Clear Calc 18.5 L eGFR 19 L BUN/Creatinine Ratio 11 L Glucose 155 H Calculated Osmolality 283 Calcium 8.6 Corrected Calcium 9.4 Phosphorus 2.8 Magnesium 1.8 Albumin 3.0 L Impressions Impression: No diarrhea biopsies are negative for celiac disease Continue current management Assessment & Plan A&P Narrative # Diarrhea about 3-4 stools a day most likely autonomic neuropathy caused by the underlying metabolic disorder and there is no evidence of inflammatory bowel disease on the previous colonoscopy done in January of 2024 As the ANCA antibody was negative as well as the colonic biopsies right colon left colon and rectum as well as terminal ileum were all negative for inflammatory bowel disease Symptomatic treatment with loperamide 2 mg AM and at bedtime Patient's anemia is caused by the renal issues and not a GI bleed although I will do test stool for occult blood and if positive we will consider an upper endoscopy prior to discharge No need for a colonoscopy Thank you very much for the opportunity to participate in the care of this patient Other medical problems include End-stage renal disease soon to be on hemodialysis Diabetes mellitus type 2 Essential hypertension Right eye vitrectomy left breast biopsy and tubal ligation Time Spent With Patient Time: Total time spent is greater than 50% in coordination of care (as documented) at patient's floor/unit and/or counseling patient:
[2024-09-12] MEDS: ATORVASTATIN CALCIUM 20 MG TABLET PO (20:14)
[2024-09-13] VITALS (17 sets, daily range): BP systolic 145–164; BP diastolic 89–100; PULSE 88–119; RESP 17–20; TEMP 36.2–36.8; O2SAT 93–99
[2024-09-13] MEDS: BENZONATATE 100 MG CAPSULE PO (00:08)
[2024-09-13] MEDS: ACETAMINOPHEN 325 MG TABLET 650 MG PO (00:08)
[2024-09-13 05:03] LABS: Basophils % (Auto) 0 % (0-2.5); Eosinophils % (Auto) 0 % (0-10); Hematocrit 25.4 % (36.0-46.0); Hemoglobin 8.9 g/dL (12.0-16.0); Immature Granulocytes % (Auto) 1 % (0-0); Immature Granulocytes Auto 0.05 Thou/mm3 (0.00-0.00); Lymphocytes % (Auto) 9 % (10-50); Mean Corpuscular Hemoglobin 31.2 pg (25.0-35.0); Mean Corpuscular Volume 89 fL (80-100); Monocytes # (Auto) 0.6 Thou/mm3 (0.0-0.8); Monocytes % (Auto) 5 % (0-12); Neutrophils # (Auto) 9.3 Thou/mm3 (1.8-7.7); Neutrophils % (Auto) 85 % (37-80); Nucleated Red Blood Cell % 0 /100 WBC (0); Platelet Count 222 Thou/mm3 (140-440); RDW Standard Deviation 46.2 fL (36.4-46.3); Red Blood Count 2.85 Miln/mm3 (4.00-5.20); White Blood Count 10.9 Thou/mm3 (3.6-11.0)
[2024-09-13 05:28] LABS: Albumin, Serum 2.5 gm/dL (3.5-5.0); Anion Gap 8 (7-16); BUN/Creatinine Ratio 12 Ratio (12-20); Blood Urea Nitrogen 35 mg/dL (9-23); Calcium 8.1 mg/dL (8.3-10.6); Calcium (Corrected) 9.3 mg/dL (8.5-10.1); Carbon Dioxide 26.8 mMol/L (20.0-31.0); Chloride 100 mMol/L (98-107); Estimated Creatinine Clearance 17.3 mL/min (>60); Glucose 109 mg/dL (74-106); Magnesium 1.7 mg/dL (1.6-2.6); Osmolality,Calculated 279 (275-295); Phosphorous 3.6 mg/dL (2.4-5.1); Potassium 3.7 mMol/L (3.4-5.1); Sodium 135 mMol/L (136-145); eGFR 18 See Note
[2024-09-13] MEDS: OFLOXACIN OP SOL 0.3% 5 ML BTL 1 DROP RIGHT EYE ×3 (06:44→16:45)
[2024-09-13] MEDS: prednisoLONE OP SUSP 1% 5 ML BTL 1 DROP RIGHT EYE ×3 (06:44→16:45)
[2024-09-13] MEDS: LACTOBACILLUS RHAMNOSUS 1 CAP PO (08:07)
[2024-09-13] MEDS: PANTOPRAZOLE 40 MG TABLET PO (08:07)
[2024-09-13] MEDS: VIT B12/Vit C/FA (Nephrovite) TABLET 1 TAB PO (08:07)
[2024-09-13] MEDS: POLYETHYLENE GLYCOL 17 GM PACKET PO (08:07)
--- NOTE | 2024-09-13 09:11 | PD.NEPHPROG ---
Documentation for date of: 09/13/24 Subjective Subjective Interval history: patient is a 53-year-old female with significant past medical history of uncontrolled DM 2, CKD stage IV, hypertension was sent by director of audiology Dr. Pedraza due to worsening of renal function labs. The patient underwent right eye vitrectomy at [facility] by document control manager Dr. Johnson. The patient admitted having chronic cough, but denied any chest pain or SOB, fever or chills, he admitted occasional diarrhea as she was recently diagnosed with Crohn's disease. In the ED her vitals were stable with blood pressure 139/74, pulse rate 112 saturating 99% on room air. The patient's last labs revealed hemoglobin 7.5, hematocrit 22.0, sodium 139, potassium 4.9, chloride 111, bicarb 18.5, BUN 65, creatinine 4.5, EGFR 11, blood sugar 175, corrected calcium 8.7, phosphorus 5.5, mild transaminitis with AST/ALT 83/66, ALP 142, UA revealed protein 3+, glucose 4+, blood 2+, WBC 6, bacteria rare. The patient was given 1 L IV LR bolus and started on 100 cc/h of LR and admitted to the floors. Nephrology consultation was done for further management of ARIK on CKD stage IV and electrolyte abnormalities. 09/07/2024: The patient was interviewed and examined at the bedside this morning. She reported doing well. Her vitals were fairly stable with heart rate 104. Hemoglobin 7.3, hematocrit 21.7, sodium 140, potassium 4.8, chloride 211, bicarb 18.2, BUN 58, creatinine 4.1, GFR 12. Mild transaminitis seen. Urine electrolytes and bilateral renal ultrasound was ordered that was significant for mild left hydronephrosis. We will continue with LR 100 cc/h and continue to monitor renal panel. 09/08/2024 comfortable. BUN/ Cr tad better. 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 Not a PD candidate. Her sister on dialysis. She is very sleptical. Time spnet 30min. If Cr still elevated- she agreed for HD in am. She has progressive D. Nephropathy 09/09/2024 patient currently seen in medical floor. Resting comfortably. Legally blind. Very pleasant lady. Blood sugar 103. Blood pressure 154/91, heart rate 106. Hemoglobin 7.3, platelets 202. Sodium 143, potassium 4.7, bicarbonate 21.6, BUN 46, creatinine 4, GFR 13, calcium 9.3, phosphorus 4.4, magnesium 1.6, iron saturation 7%. C-reactive protein 5.7, albumin 3. Hep panel pending. Patient supposed to get dialysis catheter-IR closed due to holiday. Will schedule dialysis tomorrow. Patient agreed for dialysis catheter and hemodialysis. 09/10/2024 Catrina is currently seen on dialysis. Creatinine still elevated. GFR less than 15. Had a right IJ dialysis catheter and is currently seen on her first session. Tolerating well although mild pain from the catheter site. Labs, medications have been reviewed. Hemoglobin 7.1-1 unit PRBC will be given. Creatinine 3.9 with a GFR of 13. Albumin 2.8. 09/11/2024 patient currently seen on her second dialysis session. Complaining of mild discomfort at the cath site. Hemoglobin significantly decreased. 2 units of blood transfusion ordered. No source identified. Suspect related to advanced kidney disease. Blood pressure 126/99, heart rate 99. Sodium 139, potassium 4.1, bicarbonate 29.8, BUN 38, creatinine 3, blood sugar 156, calcium 9.2, phosphorus 3.4, magnesium 1.9, albumin 2.6. 09/12/2024 patient currently seen in medical floor. He did receive 2 dialysis treatments. Hemoglobin now stable. So far she received 2 blood transfusions. Outpatient dialysis arranged for Monday, Monday, Monday. Postdialysis tomorrow can be discharged. 09/13/2024 patient currently seen on third dialysis treatments. Resting comfortably. Labs, medications have been reviewed. Outpatient dialysis arranged-will start Monday. Review of Systems Review of Systems Narrative Review of Systems: legally blind. Denies cp, sob. Appetite improved Denies any nausea, vomiting. Patient feeling much better today. Exam Vital Signs Temp Pulse Resp BP Pulse Ox O2 Del Method O2 Flow Rate 36.2 C 103 H 18 154/93 H 93 L Nasal Cannula 1 09/13/24 08:00 09/13/24 08:00 09/13/24 08:00 09/13/24 08:00 09/13/24 08:00 09/13/24 08:00 09/13/24 08:00 Narrative Exam General: No acute distress, Alert and Oriented x 3-on dialysis HEENT: Moist mucous membranes. legally blind Neck: Supple, No masses, No JVD CVS: S1S2 Regular rate and rhythm, No murmurs, rubs or gallops Lungs: Clear to auscultation with no accessory use, no wheeze no rhonchi Abd: Soft, NT/ND, +BS, no organomegaly Ext: No lower limb edema, warm and well perfused Skin: No rash-right IJ PermCath. Psych: Appropriate mood and affect Objective Labs 09/13/24 04:40 09/13/24 04:40 Labs: Laboratory Results - last 24 hr 09/12/24 09/13/24 08:45 04:40 WBC 10.2 10.9 RBC 3.53 L 2.85 L Hgb 10.8 L 8.9 L Hct 31.9 L 25.4 L MCV 90 89 MCH 30.6 31.2 MCHC 33.9 35.0 RDW Std Deviation 49.1 H 46.2 Plt Count 237 222 Neut % (Auto) 76 85 H Lymph % (Auto) 16 9 L [place] % (Auto) 7 5 Eos % (Auto) 1 0 Baso % (Auto) 0 0 Neut # (Auto) 7.8 H 9.3 H Lymph # (Auto) 1.7 1.0 [place] # (Auto) 0.7 0.6 Eos # (Auto) 0.1 0.0 Baso # (Auto) 0.0 0.0 Immature Gran # (Auto) 0.04 H 0.05 H Absolute Nucleated RBC 0.00 0.00 Immature Gran % 0 1 H Nucleated RBC % 0 0 PT 11.7 INR 1.1 APTT 33.9 Sodium 137 135 L Potassium 3.4 D 3.7 Chloride 100 100 Carbon Dioxide 30.2 26.8 Anion Gap 7 8 BUN 32 H 35 H Creatinine 2.8 H 3.0 H Estim Creat Clear Calc 18.5 L 17.3 L eGFR 19 L 18 L BUN/Creatinine Ratio 11 L 12 Glucose 155 H 109 H Calculated Osmolality 283 279 Calcium 8.6 8.1 L Corrected Calcium 9.4 9.3 Phosphorus 2.8 3.6 Magnesium 1.8 1.7 Albumin 3.0 L 2.5 L D Assessment & Plan Additional Assessment & Plan Additional Plan: patient is a 53-year-old female with significant past medical history of uncontrolled DM 2, CKD stage IV, hypertension was sent by director of audiology Dr. Pedraza due to worsening of renal function labs. Nephrology consultation was done for further management of ARIK on CKD stage IV and electrolyte abnormalities. # end-stage renal disease secondary to diabetic nephropathy needing dialysis. Despite fluids there is no improvement in the renal function. -dc LR 100 cc/h -Avoid nephrotoxic drugs -Renal dose medications -Continue to monitor renal panel daily in the a.m. -US renal BI revealed mild left hydronephrosis HD catheter placed by Dr. Miramontes Patient currently seen on dialysis. Tolerating dialysis without any problems. Hemodialysis for 2.5 hours, 2K, ultrafiltration 1 L, Epogen 6000, no heparin ordered. 2 unit PRBC ordered with dialysis. Plan of care discussed with the dialysis nurse. Please see dialysis flowsheet for further details. Outpatient dialysis arranged. Renal hernandez stable for discharge. #RTA type IV Secondary to chronic kidney disease Bicarbonate better-we will add bicarb during dialysis. dc bicitra #Hyperphosphatemia, improved Secondary to CKD Presented with phosphorus of 5.5 -Continue on sevelamer 800 Mg 3 times daily with meals -Continue to monitor phosphorus level daily in the a.m. #Primary hypertension Resume CINTHYA inhibitors #Insulin-dependent diabetes mellitus type 2 #Status post vitrectomy -Management deferred to primary hospitalist team Spoke to primary team. Outpatient dialysis arrangements completed. Quality - progress note Quality Measures Quality Measures: VTE prophylaxis Reason for Continued Stay Reason for Continued Stay: further monitoring
--- NOTE | 2024-09-13 13:21 | PC.NURSE ---
Dialysis completed for 2.5 hrs, tolerated well.? Respiration even and unlabored. Saturating at 99% on O2 at 1L/min via nc.? Able to removed 1000 ml of fluid net.? Post tx BP 163/96, HR 105, Temp 97.3.? Pt back in her room.? Call light within reached. Report given to Andres LEHMAN
[2024-09-13] MEDS: EPOETIN ALFA-EPBX INJ 10,000 UNIT/ML VIAL (NON-ESRD) 10000 UNIT SC (13:42)
--- NOTE | 2024-09-13 15:19 | ESDS_ITS ---
<Statement entered by Les Castro MD - 09/14/24 07:11> Patient was examined with the team including attending physician. Note reviewed, I agree with the discharge plan as documented. - Les Castro M.D. PGY2 Planned Discharge Date 09/13/24 DS: Providers Provider Date of admission: 09/06/24 15:58 Primary care physician: Mykel Wilson PA-C Admitting Provider: Christi Sweeney MD Attending Provider on Admission: Christi Sweeney MD Consults: 09/06/24 11:04 Consult to Nephrology Stat Comment: ARIK on CKD, renal failure Consulting Provider: Iesha Pedraaz 09/08/24 13:12 Referral Physical Therapy Routine Comment: Physician Instructions: 09/08/24 15:51 Consult to Gastroenterology Routine Comment: Crohns? Consulting Provider: Juan Iyer Attending Provider on DC: Kai De La Cruz MD Discharging Provider: Payton Ramirez MD DS: Diagnosis Problem List Completed Was Problem List Reviewed/Reconciled?: Yes Hospital Course Hospital Course Hospital course: The patient is a 54-year-old female with a past medical history of uncontrolled type II DM, CKD stage IV, hypertension who was sent to the ED by her wrapping machine helper Dr. Pedraza on 09/06/2024 after noting elevated BUN and creatinine on labs. On admission, the patient was noted to have creatinine of 4.5 and BUN of 65. 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 Renal ultrasound was done which showed mild left hydronephrosis and is a patient seen to be progressing towards ESRD with no improvement in renal function despite fluids, hemodialysis was planned. On 09/10/2024, TDC was placed for dialysis and the patient had her first session. Due to drop in hemoglobin, GI was consulted and she had an upper endoscopy which showed esophagitis with biopsies taken. She received 2 units of blood and hemoglobin is currently stable. In the hospital, the patient had 3 sessions of hemodialysis and tolerated them well. Outpatient dialysis has been set up and patient has been cleared by nephrology for discharge. Lisinopril and Jardiance have been held until follow-up. She is recommended to follow-up with her PCP as well as wrapping machine helper within 1 week of discharge and for outpatient dialysis as scheduled on Monday at [facility]. #ESRD secondary to diabetic nephropathy #New hemodialysis #RTA type IV #Type II DM #History of hypertension Discharge instructions: Follow up with PCP and nephrology within 1 week. Follow outpatient dialysis as scheduled- // Start taking metoprolol 25 mg daily. Hold home jardiance and lisinopril until seen by wrapping machine helper Continue other home medications as prescribed. Return to the ED if your symptoms worsen Case was discussed with Dr Castro PGY-2 and attending physician, Dr De La Cruz Disclaimer: This note was dictated by speech recognition. Minor errors in geophysical laboratory director may be present due to voice recognition software. Time Spent with Patient Time attestation: Total time spent providing and/or coordinating discharge services: Exam Vital Signs Temp Pulse Resp BP Pulse Ox O2 Del Method O2 Flow Rate 97.3 F 105 H 17 163/96 H 99 Nasal Cannula 1 09/13/24 13:11 09/13/24 13:11 09/13/24 13:11 09/13/24 13:11 09/13/24 13:11 09/13/24 12:00 09/13/24 13:11 Narrative Exam GENERAL: AAOX3 NEURO: RESEARCH DIETITIAN grossly intact, moves extremities x4 HEENT: Moist mucosa. Eyes open, symmetrical, blind at baseline. Right IJ dialysis catheter CARDIO: No chest pain on palpation. Heart RRR, no obvious murmurs PULM: No noted coughing/dyspnea. Lungs CTA B/L GI: Abdomen soft, nondistended, no pain on palpation. BSx4 URO/STORE WORKER:: No further abnormalities noted. SKIN/MSK/EXT: No wounds/rashes/edema/amputations, no pain on palpation. Pedal pulses present B/L Discharge Plan Plan Patient Disposition: HOME (Self Care) Patient condition on transfer: Stable Care Plan Goals: Follow up with PCP and nephrology within 1 week. Follow outpatient dialysis as scheduled- // Start taking metoprolol 25 mg daily. Hold home jardiance and lisinopril until seen by wrapping machine helper Continue other home medications as prescribed. Return to the ED if your symptoms worsen Prescriptions/Referrals Prescriptions/Med Rec: New metoprolol succinate 25 mg tablet extended release 24 hr 25 mg PO QDAY Qty: 30 0RF Nephro-Baldev 0.8 mg Tablet 1 tab PO QDAY 30 Days Qty: 30 0RF zolpidem 5 mg Tablet 2.5 mg PO HS PRN (Reason: Insomnia) 30 Days Qty: 30 0RF insulin degludec 100 unit/mL (3 mL) insulin pen 10 unit subcut QDAY 30 Days Qty: 3 0RF Continued (DME) True Metrix Glucose Test Strip Strip (DME) pen needle, diabetic [TechLITE Pen Needle] 31 gauge x 3/16 needle (DME) lancets [TRUEplus Lancets] 30 gauge misc allopurinol 100 mg tablet 100 mg PO QDAY 30 Days Qty: 30 3RF (DME) Blood Glucose Test Strip See Rx Instructions .Route Qty: 50 3RF Rx Instructions: As directed (DME) pen needle, diabetic 29 gauge needle See Rx Instructions .Route Qty: 100 0RF Rx Instructions: As directed (DME) lancets [Lancets, Super Thin] Misc See Rx Instructions .Route Qty: 200 3RF Rx Instructions: As directed (DME) FreeStyle Daniel 2 Star Misc See Rx Instructions .Route Qty: 1 3RF Rx Instructions: As directed (DME) FreeStyle Daniel 2 Sensor Kit See Rx Instructions .Route Qty: 1 3RF Rx Instructions: As directed acetaminophen-codeine 300-30 mg tablet 1 tab PO BID PRN (Reason: pain) Qty: 14 0RF ondansetron 4 mg tablet,disintegrating 4 mg PO PRN (Reason: nausea and vomiting) Patient Comments: DISSOLVE 1 TABLET ON TONGUE EVERY DAY NEEDED FOR NAUSEA ofloxacin 0.3 % drops 1 drp ophthalmic (eye) QID atorvastatin 20 mg tablet 20 mg PO .evening Patient Comments: TAKE 1 TABLET BY MOUTH IN THE EVENING prednisolone acetate [Pred Forte] 1 % drops,suspension 1 drp ophthalmic (eye) QID B complex-vitamin C-folic acid [Coty-Baldev] PO QDAY ergocalciferol (vitamin D2) 1,250 mcg (50,000 unit) capsule Patient Comments: TAKE 1 CAPSULE BY MOUTH WEEKLY Held lisinopril 2.5 mg tablet Hold Instructions: Resume on 09/15/24. Patient Comments: TAKE 1 TABLET BY MOUTH EVERY DAY Discontinued insulin glargine [Basaglar KwikPen U-100 Insulin] 100 unit/mL (3 mL) insulin p en 36 unit subcut BID Qty: 15 3RF Jardiance 25 mg tablet 25 mg PO QDAY Coty-Baldev 0.8 mg tablet Patient Comments: TAKE 1 TABLET BY MOUTH EVERY DAY hydroxyzine HCl 10 mg tablet 10 mg PO BID Patient Comments: TAKE 1 TABLET BY MOUTH TWICE A DAY NEEDED FOR ANXIETY Jardiance 10 mg tablet Patient Comments: TAKE 1 TABLET BY MOUTH EVERY DAY FOR 30 DAYS Referrals: Mykel Wilson PA-C [Primary Care Provider] - Iesha Pedraza MD [Physician] - Patient/Caregiver Discharge Instructions Other Discharge Activity Instructions:: Follow up with PCP and nephrology within 1 week. Follow outpatient dialysis as scheduled Start taking metoprolol 25 mg daily. Hold home lisinopril until seen by wrapping machine helper Continue other home medications as prescribed. Return to the ED if your symptoms worsen Out patient dialysis schedule with [facility], # [phone], M/F at 2:30pm. Start date on Print Language: Maltese Stand Alone Forms: Porsha Award Info., Patient Portal Info Letter Discharge Order Discharge Orders: Discharge (Routine); Ordered 09/13/24 Ordered By: Payton Ramirez Quality Discharge Quality Measures VTE prophylaxis MD Attestestation MD Attestation I have examined the patient, reviewed labs and imaging findings, discussed the case with the resident(s), and reviewed entered orders. I agree with the plan of care as outlined in this note. Dr. Jono MD
--- NOTE | 2024-09-13 19:47 | ESPR_ITS ---
Documentation for date of: 09/13/24 Subjective Subjective Interval history: No further diarrhea Patient can be discharged home on loperamide 2 mg twice daily for symptomatic control of the diarrhea Exam Vital Signs Temp Pulse Resp BP Pulse Ox O2 Del Method O2 Flow Rate 97.8 F 106 H 18 164/93 H 95 Nasal Cannula 1 09/13/24 16:00 09/13/24 16:00 09/13/24 16:00 09/13/24 16:00 09/13/24 16:00 09/13/24 16:00 09/13/24 16:00 Objective Labs 09/13/24 04:40 09/13/24 04:40 Labs: Laboratory Results - last 24 hr 09/13/24 04:40 WBC 10.9 RBC 2.85 L Hgb 8.9 L Hct 25.4 L MCV 89 MCH 31.2 MCHC 35.0 RDW Std Deviation 46.2 Plt Count 222 Neut % (Auto) 85 H Lymph % (Auto) 9 L Greer % (Auto) 5 Eos % (Auto) 0 Baso % (Auto) 0 Neut # (Auto) 9.3 H Lymph # (Auto) 1.0 Greer # (Auto) 0.6 Eos # (Auto) 0.0 Baso # (Auto) 0.0 Immature Gran # (Auto) 0.05 H Absolute Nucleated RBC 0.00 Immature Gran % 1 H Nucleated RBC % 0 Sodium 135 L Potassium 3.7 Chloride 100 Carbon Dioxide 26.8 Anion Gap 8 BUN 35 H Creatinine 3.0 H Estim Creat Clear Calc 17.3 L eGFR 18 L BUN/Creatinine Ratio 12 Glucose 109 H Calculated Osmolality 279 Calcium 8.1 L Corrected Calcium 9.3 Phosphorus 3.6 Magnesium 1.7 Albumin 2.5 L D Impressions Impression: # Chronic diarrhea/functional bowel disease No need for outpatient GI follow-up loperamide 2 mg twice daily Assessment & Plan A&P Narrative # Diarrhea about 3-4 stools a day most likely autonomic neuropathy caused by the underlying metabolic disorder and there is no evidence of inflammatory bowel disease on the previous colonoscopy done in January of 2024 As the ANCA antibody was negative as well as the colonic biopsies right colon left colon and rectum as well as terminal ileum were all negative for inflammatory bowel disease Symptomatic treatment with loperamide 2 mg AM and at bedtime Patient's anemia is caused by the renal issues and not a GI bleed although I will do test stool for occult blood and if positive we will consider an upper endoscopy prior to discharge No need for a colonoscopy Thank you very much for the opportunity to participate in the care of this patient Other medical problems include End-stage renal disease soon to be on hemodialysis Diabetes mellitus type 2 Essential hypertension Right eye vitrectomy left breast biopsy and tubal ligation Time Spent With Patient Time: Total time spent is greater than 50% in coordination of care (as documented) at patient's floor/unit and/or counseling patient:
== END 2024-09-13 18:30 | disposition home or self-care (01) | DRG 470 ==
LOC: SERX 16:50 → SERHOLD 16:56 → S3SX 09-07 00:19
PROVIDERS: Internal Medicine; Nurse Practitioner Family; Specialist; Student in an Organized Health Care Education/Training Program; Admitting Provider Internal Medicine; Emergency Provider Emergency Medicine; PCP Physician Assistant; Visit Provider Internal Medicine
PROC: 0DB48ZX Excision of Esophagogastric Junction, Via Natural or Artificial Opening Endoscopic, Diagnostic (ICD-10-PCS; CPT 43239; principal; 2024-09-09 18:30)
DX: I12.0 Hypertensive chronic kidney disease with stage 5 chronic kidney disease or end stage renal disease (principal); N17.9 Acute kidney failure, unspecified; N18.6 End stage renal disease; E11.22 Type 2 diabetes mellitus with diabetic chronic kidney disease; E11.65 Type 2 diabetes mellitus with hyperglycemia; K21.00 Gastro-esophageal reflux disease with esophagitis, without bleeding; K50.90 Crohn's disease, unspecified, without complications; K29.70 Gastritis, unspecified, without bleeding; H54.8 Legal blindness, as defined in USA; N13.30 Unspecified hydronephrosis; N25.89 Other disorders resulting from impaired renal tubular function; E83.39 Other disorders of phosphorus metabolism; K64.9 Unspecified hemorrhoids; E87.29 Other acidosis; R18.8 Other ascites; E87.8 Other disorders of electrolyte and fluid balance, not elsewhere classified; E11.319 Type 2 diabetes mellitus with unspecified diabetic retinopathy without macular edema; E87.5 Hyperkalemia; D63.1 Anemia in chronic kidney disease; Z79.4 Long term (current) use of insulin; Z99.2 Dependence on renal dialysis; Z87.891 Personal history of nicotine dependence; Z79.899 Other long term (current) drug therapy; Z63.4 Disappearance and death of family member; Z98.51 Tubal ligation status
CPT/HCPCS: 36415; 76770; 76937; 77001; 80053; 80061; 80069; 80074; 81001; 83036; 83540; 83550; 83735; 84100; 84443; 85014; 85018; 85025; 85610; 85730; 86140; 86580; 86703; 86850; 86900; 86901; 86923; 87086; 93005; 96360; 96361; 96372; 97161; 99285; A4649; C1894; J1200; J1642; J1643; J1815; J2250; J2405; J3010; J3475; J3490; J7050; J7120; P9016; Q5105; Q5106; A9270

== ENCOUNTER 2024-12-15 17:21 | Emergency (ER) | payer MEDICAID, SELFPAY ==
[2024-12-15 17:22] VITALS: BMI 24.4
[2024-12-15 17:37] VITALS: BP 128/78; PULSE 94; RESP 18; TEMP 36.8; O2SAT 99
--- NOTE | 2024-12-15 17:48 | PD.EDNEURO ---
Neuro Symptoms Deficit-RME/HPI General Chief Complaint: Neuro Symptoms/Deficit Stated Complaint: L ARM NUMBNESS X3 DAYS S/P FISTULA PLACEMENT Time Seen by Provider: 12/15/24 17:29 Arrival date/time: 12/15/24 17:21 54-year-old female presents to the emergency department today stating that she had a fistula placed in the left arm 3 days ago patient reports since then she has been having numbness and pain to the site as well as left lower forearm. Limitations: no limitations Related Data Home Medications ?Medication ?Instructions ?Recorded ?Confirmed blood sugar diagnostic (True 02/12/24 02/12/24 Metrix Glucose Test Strip) lancets 30 gauge (TRUEplus Lancets) 02/12/24 02/12/24 pen needle, diabetic 31 gauge x 02/12/24 02/12/2410/06 (TechLITE Pen Needle) B complex-vitamin C-folic acid PO QDAY 09/07/24 atorvastatin 20 mg tablet 20 mg PO .evening 09/07/24 09/07/24 ergocalciferol (vitamin D2) 1,250 09/07/24 mcg (50,000 unit) capsule lisinopril 2.5 mg tablet mg 09/07/24 Held on 09/08/24. Instructions: Resume on 09/15/24. ofloxacin 0.3 % eye drops 1 drp ophthalmic (eye) QID 09/07/24 09/07/24 ondansetron 4 mg disintegrating 4 mg PO PRN nausea and vomiting 09/07/24 tablet prednisolone acetate 1 % eye 1 drp ophthalmic (eye) QID 09/07/24 09/07/24 drops,suspension (Pred Forte) Previous Rx's ?Medication ?Instructions ?Recorded allopurinol 100 mg tablet 100 mg PO QDAY 30 days #30 tabs 02/12/24 blood sugar diagnostic (Blood #50 ea 02/12/24 Glucose Test strips) flash glucose scanning reader #1 ea 02/12/24 (FreeStyle Daniel 2 Stanton) flash glucose sensor (FreeStyle #1 ea 02/12/24 Daniel 2 Sensor kit) lancets (Lancets, Super Thin) #200 ea 02/12/24 pen needle, diabetic 29 gauge #100 ea 02/12/24 acetaminophen 300 mg-codeine 30 mg 1 tab PO BID PRN pain #14 tabs 02/26/24 tablet metoprolol succinate 25 mg 25 mg PO QDAY #30 tabs 09/08/24 tablet,extended release 24 hr Allergies Allergy/AdvReac Type Severity Reaction Status Date / Time No Known Allergies Allergy Verified 12/15/24 17:22 Review of Systems Review of Systems Systems Reviewed: All systems reviewed, normal except as documented Constitutional Constitutional: Reports system reviewed and no additional complaints, except as documented, Denies fever(s) and Denies headache(s) Eyes Eyes: Reports system reviewed and no additional complaints, except as documented and Denies blurry vision ENT Ears, Nose, Mouth, and Throat: Reports system reviewed and no additional complaints, except as documented, Denies headache(s), Denies nasal congestion and Denies nasal discharge Cardiovascular Cardiovascular: Reports system reviewed and no additional complaints, except as documented, Denies chest pain and Denies dyspnea Respiratory Respiratory: Reports system reviewed and no additional complaints, except as documented, Denies chest congestion, Denies cough and Denies dyspnea Gastrointestinal Gastrointestinal: Reports system reviewed and no additional complaints, except as documented and Denies abdominal pain Integumentary/Breasts Skin/Breast: Reports system reviewed and no additional complaints, except as documented, Denies rash and Reports other (Fistula left arm) Neurologic Neurologic: Reports system reviewed and no additional complaints, except as documented, Reports as per HPI and Denies headache(s) Past Medical History Past Medical History NEUROLOGIC: Negative Seizures CARDIAC: Positive Hypertension; Negative Cardiac Disorders or Congestive Heart Failure RESPIRATORY: Negative Chronic Obstructive Pulmonary Disease (COPD) GASTROINTESTINAL: Positive Gastrointestinal Disorders, Gall Bladder Disease and Obesity GENITOURINARY: Positive Genitourinary Disorders; Negative Renal Disease MUSCULOSKELETAL: Positive Musculoskeletal Disorders, Arthritis and Gout ENDOCRINE: Positive Endocrine Disorders and Diabetes Mellitus Type 2; Negative Diabetes Mellitus Type 1 HEMATOLOGIC: Negative Anemia OTHER HISTORY: Positive Falls; Negative Blood Transfusions, Blood Transfusion Reaction, Anesthesia Reactions, MRSA, VRSA or Cancer Family History FAMILY HISTORY: Positive Family Cardiac Disorders and Family Cancer (PT'S MOM THROAT CANCER) Surgical History SURGICAL: Negative Section Social History SMOKING STATUS: Former smoker ED Exam General Limitations: Present no limitations General appearance: Present alert and in no apparent distress Head Head exam: Present atraumatic Eye Eye exam: Present normal appearance, PERRL and EOMI ENT ENT exam: Present normal exam, normal oropharynx and mucous membranes moist Neck Neck exam: Present normal inspection, full ROM and trachea midline Chest Chest inspection: Present normal inspection and symmetric chest wall rise Respiratory Respiratory exam: Present normal lung sounds bilaterally Cardiovascular Cardiovascular exam: Present regular rate, normal rhythm and normal heart sounds Abdominal Exam Abdominal exam: Present soft and normal bowel sounds Extremities Exam Extremities exam: Present full ROM, tenderness, normal capillary refill and other (Fistula left arm, postop wound); Absent joint swelling Back Exam Back exam: Present normal inspection and full ROM Neurological Exam Neurological exam: Present alert, oriented X3 and CN II-XII intact Psychiatric Psychiatric exam: Present normal affect and normal mood Skin Skin exam: Present warm, dry, intact and normal color Course Quality Measures none Vital Signs Vital signs: Vital Signs Temperature 98.2 F 12/15/24 17:37 Pulse Rate 94 12/15/24 17:37 Respiratory Rate 18 12/15/24 17:37 Blood Pressure 128/78 12/15/24 17:37 Pulse Oximetry (%) 99 12/15/24 17:37 Oxygen Delivery Method Room Air 12/15/24 17:37 O2 saturation 99% room air within normal limits Neuro Symptoms / Deficit MDM Narrative MDM Narrative:: 54-year-old female presents to the emergency department today stating that she had a fistula placed in the left arm 3 days ago patient reports since then she has been having numbness and pain to the site as well as left lower forearm. On exam the site appears to be clean and dry no evidence of infection On exam patient moves all fingers without difficulty to make a fist. I asked my attending physician Dr. keen to come evaluate the patient he felt the patient be discharged home and follow-up with outpatient vascular surgeon As patient has no evidence of infection patient has full range of motion of the left arm patient be discharged home at this time For emergent concerns patient instructed to return immediately Patient data External records reviewed:: [facility] previous records Clinical information provided by:: patient Social determinants that could affect healthcare access:: none Patient has the following chronic illnesses:: See history How is presenting disease/condition affected by chronic disease/condition?: caused by Evaluation data The following diagnostics were reviewed and interpreted by me:: other (specify) (N/A) Lab and/or radiology exams considered but not ordered:: Consider not indicated Interpretation Summary: N/A Medications / Prescriptions Medications or Prescriptions considered but not ordered:: Given Medication administrations:: Given Consultations Consultation(s) initiated? (list below): No Diagnosis Neuro Differential Diagnosis: other (DVT, postop pain, nerve impingement) Most likely diagnosis given after review of the tests above:: Nerve pain postop pain Admission Indicated Admission indicated?: not indicated Admission Request Was there a request for admission?: No Disposition Plan Disposition Plan: Discharge Discharge Attestation Discharge Attestation: The patient and all family members were given an opportunity to ask questions and understood the discharge instructions. Discharge instructions specifically effects, indications for sooner follow up or return to the emergency department, and the expected course of current diagnosis. Patient condition: Stable Discharge Plan Plan Patient Disposition: HOME (Self Care) Discharge Disposition comment: Stable Prescriptions/Referrals Prescriptions/Med Rec: No Action (DME) True Metrix Glucose Test Strip Strip (DME) pen needle, diabetic [TechLITE Pen Needle] 31 gauge x 3/16 needle (DME) lancets [TRUEplus Lancets] 30 gauge misc allopurinol 100 mg tablet 100 mg PO QDAY 30 Days Qty: 30 3RF (DME) Blood Glucose Test Strip See Rx Instructions .Route Qty: 50 3RF Rx Instructions: As directed (DME) pen needle, diabetic 29 gauge needle See Rx Instructions .Route Qty: 100 0RF Rx Instructions: As directed (DME) lancets [Lancets, Super Thin] Misc See Rx Instructions .Route Qty: 200 3RF Rx Instructions: As directed (DME) FreeStyle Daniel 2 Stanton Misc See Rx Instructions .Route Qty: 1 3RF Rx Instructions: As directed (DME) FreeStyle Daniel 2 Sensor Kit See Rx Instructions .Route Qty: 1 3RF Rx Instructions: As directed acetaminophen-codeine 300-30 mg tablet 1 tab PO BID PRN (Reason: pain) Qty: 14 0RF ondansetron 4 mg tablet,disintegrating 4 mg PO PRN (Reason: nausea and vomiting) Patient Comments: DISSOLVE 1 TABLET ON TONGUE EVERY DAY NEEDED FOR NAUSEA ofloxacin 0.3 % drops 1 drp ophthalmic (eye) QID atorvastatin 20 mg tablet 20 mg PO .evening Patient Comments: TAKE 1 TABLET BY MOUTH IN THE EVENING prednisolone acetate [Pred Forte] 1 % drops,suspension 1 drp ophthalmic (eye) QID lisinopril 2.5 mg tablet Patient Comments: TAKE 1 TABLET BY MOUTH EVERY DAY B complex-vitamin C-folic acid [Coty-Baldev] PO QDAY ergocalciferol (vitamin D2) 1,250 mcg (50,000 unit) capsule Patient Comments: TAKE 1 CAPSULE BY MOUTH WEEKLY metoprolol succinate 25 mg tablet extended release 24 hr 25 mg PO QDAY Qty: 30 0RF Problem List Clinical Impression: Pain from arteriovenous fistula Patient/Caregiver Discharge Instructions Education Materials: Medicine for Pain Additional Instructions: Please follow-up with your vascular surgeon as discussed for worsening symptoms or concerns return immediately Print Language: Yakut Stand Alone Forms: Porsha Award Info., Patient Portal Info Letter PA/[employer] SUPERINTENDENT Supervising Physician PA/[employer] SUPERINTENDENT Supervising Physician: Dr. keen
== END 2024-12-15 17:52 | disposition home or self-care (01) ==
PROVIDERS: Emergency Provider Family Medicine; PCP Nurse Practitioner Family
DX: G89.18 Other acute postprocedural pain (principal)
CPT/HCPCS: 99281

== ENCOUNTER 2025-03-16 10:37 | Inpatient (IN) | payer MEDICAID, SELFPAY ==
[2025-03-16] VITALS (11 sets, daily range): BP systolic 92–146; BP diastolic 55–93; PULSE 80–94; RESP 14–96; TEMP 36.3–36.7; O2SAT 89–97; BMI 27.1
--- NOTE | 2025-03-16 11:01 | EKG_ITS ---
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
--- NOTE | 2025-03-16 11:01 | XR_ITS ---
Examination: AP chest single view. Technique: AP portable upright chest single view Date and time: March 16, 2025, 11:15 AM Comparison: February 01, 2020. Indications: Shortness of breath today. Findings: Diffuse right lung pneumonia. Moderate enlargement left ventricle with prominent vascular congestion. Right internal jugular dialysis catheter tips right atrium Prominent osteopenia Impression: Right lung pneumonia. Mild heart failure.
--- NOTE | 2025-03-16 11:01 | XR_ITS ---
Examination: Abdomen sonogram, Limited Date and time of exam: March 16, 2025, 11:37 AM Indications: Right upper abdominal pain and vomiting this morning Technique: Real-time her scale transabdominal sonographic images of the upper abdomen obtained. Findings: Multiple gallstones. Normal gallbladder wall 0.2 cm Common bile duct 0.2 cm Pancreatic head 2.5 cm Liver normal size fatty infiltration. Normal hepatopedal portal venous flow. Patent IVC. Impression: Cholelithiasis, negative for cholecystitis
--- NOTE | 2025-03-16 11:03 | PD.EDDIZZY ---
ED Dizzyness RME/HPI General Chief Complaint: Weakness Stated Complaint: WEAKNESS Time Seen by Provider: 03/16/25 10:48 Source: patient Arrival date/time: 03/16/25 10:37 Limitations: no limitations RME / HPI RME / HPI Narrative: 54-year-old female who has a history of diabetes, end-stage renal disease, and hypertension is here today with dizziness, nausea, and vomiting. She states that started at 8:00 this morning. She also endorses right upper quadrant pain. She does not have any chest pain or palpitations. She does endorse mild shortness of breath. She was brought in by EMS and they report she was 88% on room air on scene. She is placed on nasal cannula at 2 L and her oxygen stabilized. She states she does dialysis every Monday, Monday, Monday, she has not missed any runs. She has no other acute complaints or concerns. Related Data Home Medications ?Medication ?Instructions ?Recorded ?Confirmed blood sugar diagnostic (True 02/12/24 03/16/25 Metrix Glucose Test Strip) lancets 30 gauge (TRUEplus Lancets) 02/12/24 03/16/25 pen needle, diabetic 31 gauge x 02/12/24 03/16/25 3/16 (TechLITE Pen Needle) B complex-vitamin C-folic acid 1 tab PO QDAY 09/07/24 03/16/25 atorvastatin 20 mg tablet 20 mg PO .evening 09/07/24 03/16/25 ergocalciferol (vitamin D2) 1,250 1,250 mcg PO DAILY 09/07/24 03/16/25 mcg (50,000 unit) capsule ofloxacin 0.3 % eye drops 1 drp ophthalmic (eye) QID 09/07/24 03/16/25 ondansetron 4 mg disintegrating 4 mg PO QDAY PRN nausea and 09/07/24 03/16/25 tablet vomiting prednisolone acetate 1 % eye 1 drp ophthalmic (eye) QID 09/07/24 03/16/25 drops,suspension (Pred Forte) atropine 1 % eye drops 2 drp ophthalmic (eye) BID 03/16/25 03/16/25 benzonatate 100 mg capsule 100 mg PO BID 03/16/25 03/16/25 dapagliflozin propanediol 10 mg 10 mg PO QDAY 03/16/25 03/16/25 tablet (Farxiga) gabapentin 100 mg capsule 100 mg PO TID 03/16/25 03/16/25 hydroxyzine HCl 25 mg tablet 25 mg PO QDAY 03/16/25 03/16/25 ketorolac 0.5 % eye drops 1 drp ophthalmic (eye) QID 03/16/25 03/16/25 lidocaine 5 % topical patch 1 patch topical Q24H 03/16/25 03/16/25 metoprolol succinate 25 mg 50 mg PO QDAY 03/16/25 03/16/25 tablet,extended release 24 hr pioglitazone 15 mg tablet 15 mg PO QDAY 03/16/25 03/16/25 sacubitril 49 mg-valsartan 51 mg 1 tab PO BID 03/16/25 03/16/25 tablet (Entresto) Previous Rx's ?Medication ?Instructions ?Recorded blood sugar diagnostic (Blood #50 ea 02/12/24 Glucose Test strips) flash glucose scanning reader #1 ea 02/12/24 (FreeStyle Daniel 2 Glencross) flash glucose sensor (FreeStyle #1 ea 02/12/24 Daniel 2 Sensor kit) lancets (Lancets, Super Thin) #200 ea 02/12/24 pen needle, diabetic 29 gauge #100 ea 02/12/24 Allergies Allergy/AdvReac Type Severity Reaction Status Date / Time No Known Allergies Allergy Verified 03/16/25 10:57 Review of Systems Review of Systems Systems Reviewed: All systems reviewed, normal except as documented ED Exam General Limitations: Present no limitations General appearance: Present alert and in no apparent distress Head Head exam: Present atraumatic Eye Eye exam: Present normal appearance, PERRL and EOMI ENT ENT exam: Present normal exam, normal oropharynx and mucous membranes moist Neck Neck exam: Present normal inspection, full ROM and trachea midline Chest Chest inspection: Present normal inspection and symmetric chest wall rise Respiratory Respiratory exam: Present normal lung sounds bilaterally Cardiovascular Cardiovascular exam: Present regular rate, normal rhythm and normal heart sounds Abdominal Exam Abdominal exam: Present soft and normal bowel sounds Extremities Exam Extremities exam: Present normal inspection and full ROM Back Exam Back exam: Present normal inspection and full ROM Neurological Exam Neurological exam: Present alert and oriented X3 Psychiatric Psychiatric exam: Present normal affect and normal mood Skin Skin exam: Present warm, dry, intact and normal color Course Quality Measures none Orders Category Date Time Status Bedside COVID-19 Antigen Test NOW Care 03/16/25 12:39 Active COVID-19 Screening Questionnaire NOW Care 03/16/25 12:38 Active Decision to Admit X1 Care 03/16/25 12:38 Completed EKG (ED ONLY) *Do not use* NOW Care 03/16/25 11:01 Completed Consult to Nephrology Stat Cons 03/16/25 12:49 Ordered EKG (ED Only) Stat Exams 03/16/25 11:01 Draft US gall bladder Stat Exams 03/16/25 11:01 Completed XR chest 1V Stat Exams 03/16/25 11:01 Completed BNP [B-Type Natriuretic Peptide] Stat Lab 03/16/25 11:10 Completed CBC Stat Lab 03/16/25 11:10 Completed CMP [Comprehensive Metabolic Panel] Stat Lab 03/16/25 11:10 Completed Lactic Acid [Lactate (Lactic Acid)] Stat Lab 03/16/25 11:10 Completed Lipase Stat Lab 03/16/25 11:10 Completed Magnesium Stat Lab 03/16/25 11:10 Completed Procalcitonin Stat Lab 03/16/25 11:10 Completed Troponin I Stat Lab 03/16/25 11:10 Completed UA, C/S IF [Urinalysis, C/S if Indicated] Stat Lab 03/16/25 16:40 Completed Ondansetron Odt [Zofran Odt] Med 03/16/25 11:01 Discontinued 4 mg PO X1 ONE cefTRIAXone [Rocephin] 2 gm Med 03/16/25 12:17 Discontinued SODIUM CHLORIDE 0.9% (Popper) [Ns 0.9% (P)] 50 ml IV X1 Vital Signs Vital signs: Vital Signs Temperature 97.9 F 03/16/25 10:39 Pulse Rate 94 03/16/25 10:39 Respiratory Rate 18 03/16/25 10:39 Blood Pressure 134/72 H 03/16/25 10:39 Pulse Oximetry (%) 97 03/16/25 10:39 Oxygen Delivery Method Nasal Cannula 03/16/25 10:39 Oxygen Flow Rate 2 03/16/25 10:39 Dizziness MDM Narrative MDM Narrative:: 54-year-old female who has a history of diabetes, end-stage renal disease, and hypertension is here today with dizziness, nausea, and vomiting. She states that started at 8:00 this morning. She also endorses right upper quadrant pain. She does not have any chest pain or palpitations. She does endorse mild shortness of breath. She was brought in by EMS and they report she was 88% on room air on scene. She is placed on nasal cannula at 2 L and her oxygen stabilized. She states she does dialysis every Monday, Monday, Monday, she has not missed any runs. She has no other acute complaints or concerns. Patient's primary doctor is Dr. Abernathy, her digital program manager Dr. Hdz. Review of chart notes reveal the patient was admitted here few months ago with anemia and received transfusions. Workup was initiated including type and screen. On exam, patient is nontoxic-appearing in no visible signs distress. Abdomen is soft and supple. Workup reveals a right sided pneumonia, patient has a mild leukocytosis at 15.6 K, hemoglobin hematocrit are stable at 11.3 and 33.5. Metabolic panel reveals hyponatremia at 131, potassium is 5.2, creatinine is 4.0, alk phos is 158, glucose is 200. BNP is 2821. Dr. Pedraza was paged. Case discussed with our hospitalist team for admission. Dr. Pedraza with nephrology was contacted and will follow her from a nephrology standpoint. Patient data External records reviewed:: [facility] previous records Clinical information provided by:: patient Social determinants that could affect healthcare access:: none Patient has the following chronic illnesses:: esrd, htn, dm How is presenting disease/condition affected by chronic disease/condition?: exacerbated by Evaluation data The following diagnostics were reviewed and interpreted by me:: EKG tracing(s) (Normal sinus rhythm at [address] changes.) Lab and/or radiology exams considered but not ordered:: n/a Interpretation Summary: pneumonia Medications / Prescriptions Medications or Prescriptions considered but not ordered:: n/a Medication administrations:: Medication Administration History Acetaminophen (Acetaminophen 325 Mg Tablet) 650 mg PO Q6H PRN PRN Reason: Fever >101.5 or pain 1-3 Stop: 04/15/25 13:19 Dextrose (Dextrose 50%-Water Inj 50 Ml Syringe) 25 ml IV Q15MIN PRN PRN Reason: BG 50-70 responsive npo pt Stop: 04/15/25 15:12 Dextrose (Dextrose 50%-Water Inj 50 Ml Syringe) 50 ml IV Q15MIN PRN PRN Reason: BG <50 OR BG <70 & pt unresponsive Stop: 04/15/25 15:12 Glucagon (Glucagon Inj 1 Mg Vial) 1 mg IM Q15MIN PRN PRN Reason: BG <70, and no IV access Heparin Sodium (Porcine) (Heparin Sod Inj 5000 Unit/Ml Vial) 5,000 unit SC Q12HR DANIEL Stop: 03/30/25 13:29 Last Admin: 03/16/25 21:15 Dose: 5,000 unit Documented By: KEILA Co-signed By: AM Admin: 03/16/25 13:44 Dose: 5,000 unit Documented By: EDWARDO Co-signed By: LORAINE Ceftriaxone Sodium/Dextrose (Rocephin/D5w 1gm Iv Premix) 1 gm in 50 mls @ 100 mls/hr IV QDAY [facility] Stop: 03/23/25 13:26 Last Admin: 03/16/25 13:38 Dose: Not Given Documented By: EDWARDO Non-Admin Reason: Other, see note Doxycycline Hyclate 100 mg/ (Sodium Chloride) 100 mls @ 100 mls/hr IV BID [facility] Stop: 03/23/25 13:29 Last Admin: 03/16/25 20:49 Dose: 100 mls/hr Documented By: Infusion: 03/16/25 15:04 Dose: Infused Documented By: Admin: 03/16/25 13:48 Dose: 100 mls/hr Documented By: EDWARDO Magnesium Sulfate (Magnesium Sulfate Ivpb) 4 gm in 50 mls @ 12.5 mls/hr IV X1 ONE Stop: 03/16/25 23:57 Last Admin: 03/16/25 20:49 Dose: 12.5 mls/hr Documented By: KEILA Insulin Human Lispro (Insulin Lispro (Admelog) 1 Unit/0.01 Ml Unit) 0 unit SC AC [facility]; Protocol Stop: 04/15/25 16:59 Last Admin: 03/16/25 17:30 Dose: 2 unit Documented By: CRISTY Co-signed By: chico Discontinued Medications Furosemide (Furosemide Inj 10 Mg/Ml 4ml Vial) 40 mg IVP X1 ONE Stop: 03/16/25 14:14 Last Admin: 03/16/25 14:37 Dose: 40 mg Documented By: EDWARDO Ceftriaxone Sodium 2 gm/ (Sodium Chloride) 50 mls @ 100 mls/hr IV X1 ONE Stop: 03/16/25 12:46 Last Infusion: 03/16/25 13:04 Dose: Infused Documented By: Admin: 03/16/25 12:34 Dose: 100 mls/hr Documented By: GARRICK Insulin Human Lispro (Insulin Lispro (Admelog) 1 Unit/0.01 Ml Unit) 5 unit SC X1 ONE Stop: 03/16/25 21:55 Last Admin: 03/16/25 22:38 Dose: 5 unit Documented By: KEILA Co-signed By: MARVEL Ondansetron HCl (Ondansetron Odt 4 Mg Tabrap) 4 mg PO X1 ONE; Protocol Stop: 03/16/25 11:02 Last Admin: 03/16/25 12:35 Dose: 4 mg Documented By: GARRICK Sodium Chloride (Sodium Chloride Rt 10% 15 Ml Nebu) 5 ml INH X1 ONE Stop: 03/16/25 13:21 see above Consultations Consultation(s) initiated? (list below): Yes Diagnosis Most likely diagnosis given after review of the tests above:: pneumonia Admission Indicated Admission indicated?: indicated Admission Request Was there a request for admission?: Yes Admission Attestation Admission request attestation: Discussed case with [] from Hospitalist service regarding admission. Discussed patients ED course, exam findings, labs, and radiology results. The Hospitalist [agrees,declines] to accept the patient for admission. Disposition Plan Disposition Plan: Admit Discharge Plan Plan Patient Disposition: Admit Acute Care w/in Hospital Problem List Clinical Impression: Pneumonia
[2025-03-16 11:28] LABS: Lactate (Lactic Acid) 2.0 mMol/L (0.4-2.0)
[2025-03-16 11:36] LABS: Basophils # (Auto) 0.0 Thou/mm3 (0.0-0.2); Basophils % (Auto) 0 % (0-2.5); Eosinophils # (Auto) 0.0 Thou/mm3 (0.0-0.5); Eosinophils % (Auto) 0 % (0-10); Hematocrit 33.5 % (36.0-46.0); Hemoglobin 11.3 g/dL (12.0-16.0); Immature Granulocytes Auto 0.08 Thou/mm3 (0.00-0.00); Lymphocytes # (Auto) 0.4 Thou/mm3 (1.0-4.8); Lymphocytes % (Auto) 3 % (10-50); Mean Corpuscular HGB Conc 33.7 g/dl (31.0-37.0); Mean Corpuscular Hemoglobin 32.8 pg (25.0-35.0); Mean Corpuscular Volume 97 fL (80-100); Monocytes # (Auto) 0.7 Thou/mm3 (0.0-0.8); Monocytes % (Auto) 4 % (0-12); Neutrophils # (Auto) 14.4 Thou/mm3 (1.8-7.7); Neutrophils % (Auto) 92 % (37-80); Nucleated Red Blood Cell # 0.00 Thou/mm3 (0.00-0.00); Nucleated Red Blood Cell % 0 /100 WBC (0); Platelet Count 266 Thou/mm3 (140-440); RDW Standard Deviation 51.6 fL (36.4-46.3); Red Blood Count 3.44 Miln/mm3 (4.00-5.20); White Blood Count 15.6 Thou/mm3 (3.6-11.0)
[2025-03-16 11:58] LABS: Alanine Aminotransferase 14 U/L (10-49); Albumin, Serum 3.5 gm/dL (3.5-5.0); Albumin/Globulin Ratio 1.2 (1.2-2.2); Alkaline Phosphatase 158 U/L (46-116); Anion Gap 13 (7-16); Aspartate Amino Transferase 30 U/L (0-34); BUN/Creatinine Ratio 12 Ratio (12-20); Bilirubin,Total 0.6 mg/dL (0.3-1.2); Blood Urea Nitrogen 46 mg/dL (9-23); Calcium 9.7 mg/dL (8.3-10.6); Calcium (Corrected) 10.1 mg/dL (8.5-10.1); Carbon Dioxide 24.3 mMol/L (20.0-31.0); Chloride 94 mMol/L (98-107); Creatinine (Component) 4.0 mg/dL (0.6-1.3); Estimated Creatinine Clearance 13.0 mL/min (>60); Globulin 3.0 gm/dL (2.3-3.5); Glucose 200 mg/dL (74-106); Lipase 112 U/L (12-53); Osmolality,Calculated 280 (275-295); Potassium 5.2 mMol/L (3.4-5.1); Sodium 131 mMol/L (136-145); Total Protein 6.5 gm/dL (5.7-8.2); eGFR 13 See Note
[2025-03-16 12:04] LABS: Troponin I 0.031 ng/mL (0.0-0.045)
[2025-03-16 12:16] LABS: B-Type Natriuretic Peptide 2821 pg/mL (0-100)
[2025-03-16] MEDS: cefTRIAXone 2 GM in SODIUM CHLORIDE 0.9% (Popper) 50 ML IV (12:34)
[2025-03-16] MEDS: ONDANSETRON ODT 4 MG TABRAP PO (12:35)
[2025-03-16 13:08] LABS: Procalcitonin 5.73 ng/ml (0.0-0.49)
--- NOTE | 2025-03-16 13:20 | ECHO_ITS ---
Transthoracic Echo Report Ht (in): 60 Wt (lb): 139 Exam Location: Echo Lab Status: Inpatient Machine Shorthand Reporter: Tesha De Leon Indications: Procedure Performed: BP: 130 / 65 HR: 75 MEASUREMENTS (Male / Female) Normal Values 2D ECHO LV Diastolic Diameter PLAX 4.7 cm 4.2 - 5.9 / 3.9 - 5.3 cm LV Systolic Diameter PLAX 3.8 cm IVS Diastolic Thickness 0.9 cm 0.6 - 1.0 / 0.6 - 0.9 cm LVPW Diastolic Thickness 1.3 cm 0.6 - 1.0 / 0.6 - 0.9 cm LV Relative Wall Thickness 0.5 LVOT Diameter 1.9 cm LV Ejection Fraction MOD BP 47.1 % >= 55 % LV Cardiac Index MOD BP 2246.4 cm?/min?m? LV Ejection Fraction MOD 4C 39.1 % LV Cardiac Index MOD 4C 1629.2 cm?/min?m? LV Ejection Fraction 4C AL 41.9 % LV Cardiac Index 4C AL 1811.1 cm?/min?m? LV Ejection Fraction MOD 2C 53.1 % LV Cardiac Index MOD 2C 2840.9 cm?/min?m? LV Ejection Fraction 2C AL 54.6 % LV Cardiac Index 2C AL 3058.3 cm?/min?m? LA Volume Index 35.8 cm?/m? 16 - 28 cm?/m? Descending Aorta Diameter 2.4 cm M-MODE AV Cusp Separation MM 1.4 cm DOPPLER AV Peak Velocity 176.0 cm/s AV Peak Gradient 12.4 mmHg AV Mean Gradient 7.0 mmHg AV Velocity Time Integral 40.0 cm LVOT Peak Velocity 64.8 cm/s LVOT Peak Gradient 1.7 mmHg LVOT Velocity Time Integral 13.8 cm LVOT Cardiac Index 1775.7 cm?/min?m? AV Area Cont Eq vti 1.0 cm? AV Area Cont Eq pk 1.0 cm? MV Area PHT 6.5 cm? Mitral E Point Velocity 98.5 cm/s LV E' Lateral Velocity 7.1 cm/s Mitral E to LV E' Lateral Ratio 13.9 TR Peak Velocity 245.0 cm/s TR Peak Gradient 24.0 mmHg PV Peak Velocity 71.8 cm/s PV Peak Gradient 2.1 mmHg FINDINGS Left Ventricle Normal left ventricular size, wall thickness, systolic function with no obvious regional wall motion abnormalities. Indeterminate LV diastolic function. Left ventricle global systolic function is Moderately reduced.The ejection fraction is visually estimated at 40-45 %. Right Ventricle The right ventricle is normal in size and systolic function. Left Atrium The left atrial cavity size is mildly increased. Right Atrium The right atrium is normal by two-dimensional imaging, color flow and Doppler imaging with no structural abnormalities, no thrombus formation present. Atrial Septum The interatrial septum appears normal with no evidence of a shunt. Aorta The aortic annulus is normal. Mitral Valve The mitral valve is normal by two-dimensional, color flow and Doppler interrogation. Trace to mild mitral regurgitation. Aortic Valve The aortic valve is trileaflet and normal by two-dimensional, color flow and Doppler interrogation. Aortic valve sclerosis without stenosis. Trace to mild aortic valve regurgitation. Tricuspid Valve The tricuspid valve is normal by two-dimensional, color flow and Doppler interrogation. There is mild tricuspid valve regurgitation. Pulmonic Valve The pulmonic valve is not well visualized. There is no significant pulmonic valve regurgitation. Vessels The pulmonary artery appears normal. The inferior vena cava pulmonary and hepatic veins appear normal. Pericardium There is a trace pericardial effusion without cardiac tamponade CONCLUSIONS Indication: HFrEF history Normal LVsize with moderately reduced. Approximate ejection fraction is 35-40%. Indeterminate LV diastolic function. RV size and function normal. Mildly elevated RVSP of 30-35 mm hg. Trace to Mild MR, AR and TR. Mild aortic valve sclerosis without stenosis. Mild dilated LATrace pericardial effusion without cardiac tamponade Shine Moise (Electronically Signed) Final Date: 18 March 2025 10:48
--- NOTE | 2025-03-16 13:37 | ESHP_ITS ---
<Statement entered by Dago Lucas MD - 03/16/25 15:51> Patient was seen and examined at bedside. I agree on the assessment and plan on this note as documented by resident Arpit Cardona DO PGY1. 54-year-old female with past medical history of type 2 diabetes mellitus, vision problems and self history of blindness secondary to glaucoma and cataract issues (Follows Dr Johnson), ESRD on HD MWF (follows Dr. Pedraza) hypertension and gout presented to [facility] for chief complaint of difficulty ambulating, patient admitted for near syncope and required pneumonia. Patient reported events when she has a curtain falling over her high currently passes out, denied any falls. Will obtain syncope workup ordered orthostatic vitals and echocardiogram. Does report history of ejection fraction of 30% on a recent echocardiogram, has not been evaluated by a stator connector is on GDMT?Entresto, metoprolol, dapagliflozin; will obtain echocardiogram and will consider cardiology consult, x 1 Lasix 40 mg IV. For pneumonia will start patient on ceftriaxone and doxycycline, EKG reviewed QTc 506 does have mild hyperkalemia, potassium 5.2 we will give Lasix 40 x 1, repeat potassium at night today. Will obtain mag and keep magnesium greater than 2. Disposition admission to telemetry for near syncope workup and pneumonia management. Case discussed with attending Dr. Lisa Lucas MD PGY-2 Documentation for date of: 03/16/25 HPI History of Present Illness Chief complaint: Near syncope History of present illness: Mrs. Lorenzo is a 54 year old female with a history T2DM, ESRD on HD MWF, HTN, and gout who presented to [facility] ED on 03/16 for difficulty walking this morning. The patient was admitted for near syncope and community-acquired pneumonia. The patient stated that when she woke up this morning around 8 to 9 AM, the patient noticed that she had difficulty walking. When the patient tried to get up, she felt as if she was going to fall. She described it almost as like the current falling under her eye. The patient needed her cost specialist to help her to the bathroom. Prior to this, the patient was walking without issue using a walker. The patient does note that she threw up about 3 times in the morning as well, but no falls were noted and the patient did not lose consciousness. The patient also noted right upper quadrant abdominal pain. When the patient arrived in the ED, she has noted to have 88% oxygen on room air. Chest x-ray showed right lung pneumonia with mild heart failure. On admission, the patient was breathing comfortably on room air without any O2 desats. The patient does still continue to endorse right upper quadrant pain and rates as a 8/10, but it does not seem to have worsened pain when right upper quadrant is palpated on taking a deep breath, with hand hooking up towards liver. The patient notes that she does have a history of cataracts that appears to be worse in her right eye. The patient states that she sees Dr. Johnson in [place] for management of her cataracts. She has had surgery to remove the cataracts in the past, but were unsuccessful. She plans to have another procedure in the near future. The patient sees Dr. Pedraza for management of ESRD secondary to diabetic nephropathy, and is on hemodialysis Monday. The patient has a tunneled dialysis catheter, which was placed on 09/10/2024. The patient had tried to have a fistula placed in the past, but noted that because she had her circulation to her left arm, they had to remove the fistula. This issue has also led to her having to use a dialysis catheter for IV medication. The patient states that she has also had cardiac group done in the past. She is not sure who her stator connector is, but states that they are in [place], possibly Dr. Montanez. She states that she had a stress test done in the past that showed her heart working at 30%. The patient states that she also has a history of gout and has had gallstones last year around January?February. The patient's cost specialist is Devon and can be reached at [phone]. The patient has multiple eye drop medications, but states that she does not take those anymore. The patient endorses chills and shortness of breath, denies fevers, coughing, chest pain, dysuria, pyuria, and pain in her lower extremities. ED Course: On arrival to ED, the patient was noted to have O2 sat of 88%, which quickly corrected to 97% with 2L NC. Patient noted to have a heart rate of 94 on arrival. Labs were significant for WBC 50.6, sodium 131, potassium 5.2, creatinine 4.0, BUN 46, glucose 200, troponin negative at 0.031, BNP 2821, lipase 112, procalcitonin 5.73. Chest x-ray showed right lung pneumonia and mild heart failure. Gallbladder ultrasound showed multiple gallstones, negative for cholecystitis. Patient was given ceftriaxone 2 g in ED. Past Surgical History: - Biopsy of left breast, benign - Tubes tied - Fistula on LUE, which was later removed Current Medication(s): - Benzonatate 100 mg BID PRN - Sacubitril/Valsartan 49-51M BID - Hydroxyzine 25 mg HS - Atorvastatin 20 mg daily - Metoprolol 50 mg HS - Ergocalciferol 1.25 mg daily - Pioglitazone 15 mg daily - NAYAN-MARIANA - Dapagliflozin 10 mg daily Allergies (w/ Reactions): NKDA Family History: Sister had kidney disease , needed dialysis, of a stroke Alcohol Intake:?Patient states that she drank in the past, but has not drank in a while Tobacco/Vape Use:?Patient smoked for about a year when she was 28 years old, no longer smokes Other Drug Use:?Patient has used illicit drugs 2 times in the past Review of Systems Review of Systems Systems Reviewed: All systems reviewed, normal except as documented Exam Vital Signs Temp Pulse Resp BP Pulse Ox O2 Del Method O2 Flow Rate 97.7 F 83 15 127/66 96 Room Air 2 03/16/25 13:27 03/16/25 13:27 03/16/25 13:27 03/16/25 13:27 03/16/25 13:27 03/16/25 13:27 03/16/25 10:39 Narrative Exam Physical Exam: General: Alert, no acute distress. Skin: Warm, dry, intact, no obvious rash. Head: Normocephalic, atraumatic. Eye: Normal conjunctiva, PERRL. Throat: Oral mucosa moist. No obvious lesions in oropharynx. Cardiovascular: Regular rate and rhythm, no murmur, +S1/S2. Respiratory: Lungs are clear to auscultation, respirations unlabored, no crackles, no wheezing. Gastrointestinal: Soft, RUQ tender to palpation, non-distended. No guarding or rebound tenderness. Extremities: 1+ BLE edema, no cyanosis, no clubbing. Neuro: No focal deficits observed. Conversant, moving all extremities. No overt cerebellar signs/incoordination. Psychiatric: Cooperative, appropriate affect. Results: Labs 03/16/25 11:10 03/16/25 11:10 Labs: Short CBC 03/16/25 Range/Units 11:10 WBC 15.6 H (3.6-11.0) Thou/mm3 Hgb 11.3 L (12.0-16.0) g/dL Hct 33.5 L (36.0-46.0) % Plt Count 266 (140-440) Thou/mm3 BMP 03/16/25 11:10 Sodium 131 L Potassium 5.2 H Chloride 94 L Carbon Dioxide 24.3 BUN 46 H Creatinine 4.0 H Glucose 200 H Calcium 9.7 Cardiac Enzymes 03/16/25 Range/Units 11:10 Troponin I 0.031 (0.0-0.045) ng/mL Liver Function 03/16/25 Range/Units 11:10 Total Bilirubin 0.6 (0.3-1.2) mg/dL AST 30 (0-34) U/L ALT 14 (10-49) U/L Alkaline Phosphatase 158 H (46-116) U/L Albumin 3.5 (3.5-5.0) gm/dL Quality Measures Quality Measures VTE prophylaxis Medications Home Medications and Allergies Home Medications ?Medication ?Instructions ?Recorded ?Confirmed ?Type blood sugar diagnostic (True 02/12/24 02/12/24 Histor y Metrix Glucose Test Strip) lancets 30 gauge (TRUEplus Lancets) 02/12/24 02/12/24 History pen needle, diabetic 31 gauge x 02/12/24 02/12/24 His tory 10/06 (TechLITE Pen Needle) B complex-vitamin C-folic acid PO QDAY 09/07/24 Histo ry atorvastatin 20 mg tablet 20 mg PO .evening 09/07/24 0 09/07/24 History ergocalciferol (vitamin D2) 1,250 09/07/24 History mcg (50,000 unit) capsule lisinopril 2.5 mg tablet mg 09/07/24 History Held on 09/08/24. Instructions: Resume on 09/15/24. ofloxacin 0.3 % eye drops 1 drp ophthalmic (eye) QID 0 09/07/24 09/07/24 History ondansetron 4 mg disintegrating 4 mg PO PRN nausea and vomiting 09/07/24 History tablet prednisolone acetate 1 % eye 1 drp ophthalmic (eye) QI D 09/07/24 09/07/24 History drops,suspension (Pred Forte) Allergies Allergy/AdvReac Type Severity Reaction Status Date / Time No Known Allergies Allergy Verified 03/16/25 10:57 Visit Medications Acetaminophen (Acetaminophen 325 Mg Tablet) 650 mg PO Q6H PRN PRN Reason: Fever >101.5 or pain 1-3 Stop: 04/15/25 13:19 Heparin Sodium (Porcine) (Heparin Sod Inj 5000 Unit/Ml Vial) 5,000 unit SC Q12HR DANIEL Stop: 03/30/25 13:29 Ceftriaxone Sodium/Dextrose (Rocephin/D5w 1gm Iv Premix) 1 gm in 50 mls @ 100 mls/hr IV QDAY DANIEL Stop: 03/23/25 13:26 Doxycycline Hyclate 100 mg/ (Sodium Chloride) 100 mls @ 100 mls/hr IV BID DANIEL Stop: 03/23/25 13:29 Discontinued Medications Ceftriaxone Sodium 2 gm/ (Sodium Chloride) 50 mls @ 100 mls/hr IV X1 ONE Stop: 03/16/25 12:46 Last Infusion: 03/16/25 13:04 Dose: Infused Ondansetron HCl (Ondansetron Odt 4 Mg Tabrap) 4 mg PO X1 ONE; Protocol Stop: 03/16/25 11:02 Last Admin: 03/16/25 12:35 Dose: 4 mg Sodium Chloride (Sodium Chloride Rt 10% 15 Ml Nebu) 5 ml INH X1 ONE Stop: 03/16/25 13:21 Assessment & Plan Plan Mrs. Lorenzo is a 54 year old female with a history T2DM, ESRD on HD MWF, HTN, and gout who presented to [facility] ED on 03/16 for difficulty walking this morning. The patient was admitted for near syncope and community-acquired pneumonia. #Near syncope Patient noted to have weakness of bilateral lower extremities earlier on the morning of 03/16. The patient stated that she tried walking, but needed help from her cost specialist who she has never needed help from before. She was also noted to have a suspicion where it almost look like a curtain falling over her eyes. The patient denies loss of consciousness and did not have any falls. EKG in ED noted to have QTc 506. - Orthostatic vitals ordered, pending - Echocardiogram ordered, pending - Vitamin B12 ordered, pending - Folate ordered, pending - TSH and free T4 ordered, pending - Physical therapy referral ordered #Community acquired pneumonia Patient noted shortness of breath and chills on review of systems. Patient did have oxygen saturation of 88% on room air when she initially presented to ED, which quickly corrected on 2 L nasal cannula. Chest x-ray shows right lung pneumonia with mild heart failure. Heart rate noted to be 94 and WBC noted to be 15.6 in ED. SIRS score 2 PSI score 86, risk class III 0.9?2.8% mortality - Blood cultures ordered 03/16, pending - Sputum culture ordered 03/16, pending - MRSA nares ordered, pending - Ceftriaxone 1 g daily (03/16--) - Doxycycline 100 mg twice daily (03/16--) #HFrEF (EF 30%) Patient states that in the past she had a stress test that showed that her heart was working at 30%. She states that this was done with a stator connector at [place], possibly Dr. Montanez, but patient is unsure. This is most likely an echocardiogram that she had done in the past. The patient is on Sacubitril/Valsartan, Metoprolol, and Dapagliflozin at home, likely for HFrEF. Bilateral lower extremity swelling was noted on examination during admission. Patient endorses sleeping with two pillows to prop her head up at night to sleep. - Strict ins and outs - Daily weights - Cardiac diet with consistent carbohydrate, fluid restriction 1500 cc, and renal modifications - Echocardiogram ordered, pending - Lasix 40 mg one time dose 03/16 #ESRD on HD MWF Patient has a history of ESRD on hemodialysis Monday. TDC was placed back in August 2024. Patient states that she is consistent with her hemodialysis sessions and follows Dr. Pedraza outpatient for nephrology. - Nephrology, Dr. Pedraza, consulted, appreciate recommendations - Continue to monitor renal status daily - Renal diet modification - Patient noted to have Cr 4.0, will monitor 03/17 as patient will most likely receive dialysis #Hypertension Patient has a history of hypertension. Can be primary or secondary to decreased renal function. Patient does take Sacubitril/valsartan and metoprolol at home. - Will hold home antihypertensive for now #Cholelithiasis, without cholecystitis #RUQ abdominal pain Patient complained of RUQ abdominal pain in ED. Negative Rose sign on examination. Gallbladder US done in ED showed multiple gall stones, supporting cholelithiasis, but did not show any gallbladder wall thickening or other signs of cholecystitis. Patient states that she has had gall stones in the past, with her most recent history around January-February 2024, but has never required a cholecystectomy. - Continue to monitor RUQ abdominal pain, if worsening can consider additional imaging #Non-insulin dependent type 2 diabetes mellitus Patient has a long history of diabetes type 2. Patient does not take any insulin at home. - Will hold home pioglitazone and dapagliflozin - Sliding scale insulin step 1 #Hyperkalemia Patient noted to have potassium of 5.2 in ED. Patient does have a history of ESRD on hemodialysis. - Will continue to monitor, will most likely return to normal limits with dialysis - Potassium check 2300, if elevated with decrease with hyperkalemia protocol #Hyponatremia Patient noted to have sodium of 131 in ED. Patient does not appear to be symptomatic from hyponatremia at this time. - Will continue to monitor with daily sodium #History of gout Patient endorses a history of gout. Does not have symptoms of an acute flare at this moment and does not appear to be taking any home medications for management of gout. - Patient to follow up with outpatient PCP DVT Prophylaxis: Heparin GI Prophylaxis: N/A Bowel: N/A Diet: Cardiac diet with consistent carbohydrate, fluid restriction 1500 cc, and renal modifications Elder: N/A Lines: RIJ TDC Antibiotics: Ceftriaxone & Doxycycline Code Status: FULL Reason for Hospitalization: Near syncope & CAP Other Barriers to Discharge: Echocardiogram & HD Patient plan of care was discussed with the senior resident Dr. Lucas (PGY-2) and attending physician Dr. Pamela Cardona, PGY1 Attending Provider Attestation/Addendum I attest that I was physically present for the evaluation, physical examination, lab and imaging review of the patient with the residents. I discussed the case with the residents and agree with the findings and plans of care as documented above. After examination of the patient and review of the clinical data I feel that this patient needs admission to the hospital for further treatment/evaluation Patient is a 54 years old female with past medical history of type 2 diabetes mellitus, ESRD on hemodialysis, hypertension, cataract, glaucoma and gout who presented to the ED with complaint of generalized weakness, dizziness and lightheadedness. Patient is stated this morning, when she woke up, she started having lightheadedness dizziness and felt like she is about to faint, she was also having generalized weakness and having difficulty with ambulation. She missed her hemodialysis on Monday but was able to receive hemodialysis session on and Monday. In the ED, oxygen saturation was 88% on arrival. She was started on nasal cannula, rest of the vitals were within normal limits. Lab results were significant for WBC of 15.6, hemoglobin 11.3, sodium 131, potassium 5.2, BUN/creatinine 46/4.0, glucose 200, BNP 2821, ALP 158, lipase 112 and prolactin 5.73. Urinalysis was nonconcerning for any infectious process, patient also did not have dysuria. She had couple episodes of vomiting and was endorsing right upper quadrant pain. Rose sign was negative and abdomen was soft with mild tenderness on right side. Chest x-ray was obtained in the ED, showed right lung pneumonia and mild vascular congestion. Gallbladder ultrasound showed cholelithiasis but no cholecystitis and normal CBD. We will admit the patient for management of presyncope, pneumonia. We will start her on IV Rocephin and doxycycline and obtain cultures. We will obtain orthostatic vitals, echocardiogram B12, folate, TSH and free T4 to evaluate for near syncope episode. We will also obtain physical therapy. Ordered Lasix 40 x 1, fluid restriction and daily weights. We will obtain nephrology consult for arrangement of hemodialysis. Patient's blood pressure is on the lower side, we will hold rest of the antihypertensive and slowly resume them once blood pressure starts going up. Started on insulin regimen for diabetes. Lisa Santiago MD
[2025-03-16] MEDS: HEPARIN SOD INJ 5000 UNIT/ML VIAL SC ×2 (13:44→21:15)
[2025-03-16] MEDS: DOXYCYCLINE INJ 100 MG in SODIUM CHLORIDE 0.9% (POP) 100 ML IV ×2 (13:48→20:49)
--- NOTE | 2025-03-16 14:07 | PC.CC ---
Patient is a 54 year-old female who presents to the hospital for Near Syncope PNA. SHIPYARD SUPERVISOR, Leigha made [id number] contact with patient introduced self, role, and reason for visit. Patient appeared alert and oriented to self, location, and situation. SHIPYARD SUPERVISOR, discussed limits of confidentiality. Patient made appropriate eye contact and engaged in initial assessment. ? Patient confirmed information on demographics and reports to living with her daughter, Ronda Hector . Patient reports that in the event she is unable to make her own medical decision her medical decision maker is her caregiver, Solis Bocanegra . Patient reports at home she ambulates using a can and her daughter or caregiver assist her with her ADLs. Patient has a caregiver that is also her cousin Solis. Patient is a dialysis patient at the facility off [facility] and her chair time is Monday, Monday, and Monday at 2:50pm. Patient's primary provider is Julianna Khan at [facility]. Upon discharge patient plans to return back home. child protective services specialist to follow up with any discharge needs.
[2025-03-16 14:17] LABS: Magnesium 1.7 mg/dL (1.6-2.6)
[2025-03-16] MEDS: FUROSEMIDE INJ 10 MG/ML 4ML VIAL 40 MG IVP (14:37)
[2025-03-16 17:24] LABS: Collection Type, Urine Voided
[2025-03-16] MEDS: INSULIN LISPRO (AdmeLOG) 1 UNIT/0.01 ML UNIT SC (17:30)
[2025-03-16 17:59] LABS: Bacteria,Urine Rare; Bilirubin,Urine Negative (Negative); Blood,Urine Trace (Negative); Clarity,Urine Clear (Clear/Hazy); Color,Urine Lt-Yellow (Lt Yel-Yel); Culture Indicated,Urine Not Indicated; Glucose, Urine 4+ (Negative); Ketones,Urine Negative (Negative); Leukocyte Esterase,Urine Negative (Negative); Nitrite,Urine Negative (Negative); PH,Urine 8.0 (5.0-7.0); Protein,Urine 3+ (Neg - Trace); RBC,Urine 9 /hpf (0-3); Specific Gravity,Urine 1.007 (1.001-1.035); Squamous Epithelial Cell,Urine 15 /hpf (0-5); Urobilinogen,Urine Negative mg/dL (0.0-1.0); WBC,Urine 3 /hpf (0-5)
[2025-03-16] MEDS: Magnesium Sulfate 4 GM Ivpb 4 GM/50 ML BAG IV (20:49)
[2025-03-16] MEDS: INSULIN LISPRO (AdmeLOG) 1 UNIT/0.01 ML UNIT 5 UNIT SC (22:38)
[2025-03-16 23:59] LABS: Potassium 5.1 mMol/L (3.4-5.1)
[2025-03-17] VITALS (27 sets, daily range): BP systolic 120–158; BP diastolic 65–97; PULSE 79–98; RESP 11–99; TEMP 35.7–36.5; O2SAT 97–99; BMI 28.0; BMI 13.0
[2025-03-17 06:18] LABS: Basophils # (Auto) 0.0 Thou/mm3 (0.0-0.2); Basophils % (Auto) 0 % (0-2.5); Eosinophils # (Auto) 0.0 Thou/mm3 (0.0-0.5); Eosinophils % (Auto) 0 % (0-10); Hematocrit 27.7 % (36.0-46.0); Hemoglobin 9.6 g/dL (12.0-16.0); Immature Granulocytes Auto 0.05 Thou/mm3 (0.00-0.00); Lymphocytes # (Auto) 1.2 Thou/mm3 (1.0-4.8); Lymphocytes % (Auto) 9 % (10-50); Mean Corpuscular HGB Conc 34.7 g/dl (31.0-37.0); Mean Corpuscular Hemoglobin 33.6 pg (25.0-35.0); Mean Corpuscular Volume 97 fL (80-100); Monocytes # (Auto) 0.7 Thou/mm3 (0.0-0.8); Monocytes % (Auto) 5 % (0-12); Neutrophils # (Auto) 12.2 Thou/mm3 (1.8-7.7); Neutrophils % (Auto) 86 % (37-80); Nucleated Red Blood Cell # 0.00 Thou/mm3 (0.00-0.00); Nucleated Red Blood Cell % 0 /100 WBC (0); Platelet Count 241 Thou/mm3 (140-440); RDW Standard Deviation 51.1 fL (36.4-46.3); Red Blood Count 2.86 Miln/mm3 (4.00-5.20); White Blood Count 14.2 Thou/mm3 (3.6-11.0)
[2025-03-17 06:30] LABS: INR 1.0 (0.9-1.3); Partial Thromboplastin Time 37.8 Seconds (22.0-36.0); Prothrombin Time 11.4 Seconds (9.0-12.2)
[2025-03-17 06:49] LABS: Iron 39 mcg/dL (50-170); Percent Iron Saturation 17 % (20-55); Total Iron Binding Capacity 225 mcg/dL (250-425); Unsaturated Iron Binding 186 (225-295)
[2025-03-17 06:57] LABS: Glucose Estimated Average 163 mg/dL (80-131); Hemoglobin A1C 7.3 % Hgb (4.8-6.0)
[2025-03-17 07:00] LABS: Alanine Aminotransferase 11 U/L (10-49); Albumin, Serum 3.1 gm/dL (3.5-5.0); Albumin/Globulin Ratio 1.1 (1.2-2.2); Alkaline Phosphatase 118 U/L (46-116); Anion Gap 13 (7-16); Aspartate Amino Transferase 20 U/L (0-34); BUN/Creatinine Ratio 11 Ratio (12-20); Bilirubin,Total 0.3 mg/dL (0.3-1.2); Blood Urea Nitrogen 52 mg/dL (9-23); Calcium 9.8 mg/dL (8.3-10.6); Calcium (Corrected) 10.5 mg/dL (8.5-10.1); Carbon Dioxide 25.5 mMol/L (20.0-31.0); Cardiac Risk Estimate 1.7 RATIO (3.7-5.6); Chloride 95 mMol/L (98-107); Cholesterol 118 mg/dL (132-200); Creatinine (Component) 4.6 mg/dL (0.6-1.3); Estimated Creatinine Clearance 11.2 mL/min (>60); Free T4 (Free Thyroxine) 0.95 ng/dL (0.89-1.76); Globulin 2.8 gm/dL (2.3-3.5); Glucose 209 mg/dL (74-106); HDL Cholesterol 68 mg/dL (40-60); LDL Cholesterol,Calculated 45 mg/dL (0-130); Magnesium 2.4 mg/dL (1.6-2.6); Osmolality,Calculated 286 (275-295); Phosphorous 4.8 mg/dL (2.4-5.1); Potassium 4.9 mMol/L (3.4-5.1); Sodium 133 mMol/L (136-145); Thyroid Stimulating Hormone 1.71 uIU/mL (0.55-4.78); Total Protein 5.9 gm/dL (5.7-8.2); Triglycerides 26 mg/dL (30-150); eGFR 11 See Note
--- NOTE | 2025-03-17 09:55 | PC.SS ---
Follow up note: Pending ECHO. On IV antibiotic. Pt will return home upon dc.
--- NOTE | 2025-03-17 10:02 | PD.RESCONSUL ---
HPI Data of Consult Consult date: 03/17/25 Requesting Physician: Lisa Santiago MD Admitting Provider: Lisa Santiago MD Attending Provider: Lisa Santiago MD Primary Care Provider: Julianna Khan NP Consult Narrative Reason for consult: ESRD MWF History of present illness: per h and p and interview conducted by me. Ms Bj harris a 54 yo woman with a hx of ESRD on HD MWF (follows with keila) T2DM (7.3 A1c), HTN, Gout, query CHF (followed by Dr in [place] ?[place]?, on GDMT), and vision problems (query glaucoma vs cataracts, follows with Dr. Johnson) wo presented to the ED with c/f difficulty ambulating. Admitted for presyncope and pneumonia. The patient's area director of home health sales is Devon and can be reached at [phone]. The patient has multiple eye drop medications,not taking ROS The patient endorses chills and shortness of breath, denies fevers, coughing, RUQ tenderness, chest pain, dysuria, pyuria, and pain in her lower extremities. ED Course: On arrival to ED, the patient was noted to have O2 sat of 88%, which quickly corrected to 97% with 2L NC. Patient noted to have a heart rate of 94 on arrival. Labs were significant for WBC 50.6, sodium 131, potassium 5.2, creatinine 4.0, BUN 46, glucose 200, troponin negative at 0.031, BNP 2821, lipase 112, procalcitonin 5.73. Chest x-ray showed right lung pneumonia and mild heart failure. Gallbladder ultrasound showed multiple gallstones, negative for cholecystitis. Patient was given ceftriaxone 2 g in ED. Past Surgical History: - Biopsy of left breast, benign - tubal ligation - Fistula on LUE, which was later removed Current Medication(s): - Benzonatate 100 mg BID PRN - Sacubitril/Valsartan 49-51M BID - Hydroxyzine 25 mg HS - Atorvastatin 20 mg daily - Metoprolol 50 mg HS - Ergocalciferol 1.25 mg daily - Pioglitazone 15 mg daily - NAYAN-MARIANA - Dapagliflozin 10 mg daily Allergies (w/ Reactions): NKDA Family History: Sister had kidney disease , needed dialysis, of a stroke Alcohol Intake:?Patient states that she drank in the past, but has not drank in a while Tobacco/Vape Use:?Patient smoked for about a year when she was 28 years old, no longer smokes Other Drug Use:?Patient has used illicit drugs 2 times in the past 03/17/2025: Pt admitted for PNA and syncope workup, Nephro consulted given ESRD MWF, Patient seen and examined while in HD, she appears comfortable satting well on RA, tolerating dialysis well, K 4.9, BUN 52, Cr 4.6, Iron studies with low iron, primary team to replete, given epogen, with hd, Hgb 9.6. WBC 14. lipase elevated to 112, continues on abx for pna per primary team. Will recive HD per her usual MWF schedule. cc:: cc: Lisa Santiago MD Review of Systems Review of Systems Narrative Review of Systems: as per hpi Past Medical History Surgical History OTHER SURGICAL HX: as per hpi Exam Vital Signs Temp Pulse Resp BP Pulse Ox O2 Del Method O2 Flow Rate 96.9 F 81 18 129/68 99 Room Air 2 03/17/25 08:01 03/17/25 09:47 03/17/25 08:01 03/17/25 09:47 03/17/25 08:01 03/17/25 07:54 03/16/25 10:39 Narrative Exam GENERAL: no acute distress, AAO x3, pt seen in HD, sitting upright HEENT: Head AT/ NC. Mucous membranes dry. EOMI. pt can see colors and track. NECK: Supple, no lymphadenopathy, CARDIOVASCULAR: RRR. Normal S1/S2, No m/r/g. 1+ edema of bilateral LEs. RIJ TDC RESPIRATORY: CTAB. some trace crackles bilaterally, nl wob, on room air GASTROINTESTINAL: Abdomen soft, mildly tender no palpable masses. Bowel sounds present MUSCULOSKELETAL:? No cyanosis or edema, no visible joint swelling. NEUROLOGICAL: CN II-XII grossly intact. No focal deficits. Sensation intact, symmetric. PSYCHIATRIC: Awake and alert, not agitated, normal mood and affect. SKIN: No obvious rashes, no jaundice, normal turgor. Results Labs 03/17/25 06:00 03/17/25 06:00 Labs: Short CBC 03/16/25 03/17/25 Range/Units 11:10 06:00 WBC 15.6 H 14.2 H (3.6-11.0) Thou/mm3 Hgb 11.3 L 9.6 L (12.0-16.0) g/dL Hct 33.5 L 27.7 L (36.0-46.0) % Plt Count 266 241 (140-440) Thou/mm3 BMP 03/16/25 03/16/25 03/17/25 11:10 22:36 06:00 Sodium 131 L 133 L Potassium 5.2 H 5.1 4.9 Chloride 94 L 95 L Carbon Dioxide 24.3 25.5 BUN 46 H 52 H Creatinine 4.0 H 4.6 H* D Glucose 200 H 209 H Calcium 9.7 9.8 Cardiac Enzymes 03/16/25 Range/Units 11:10 Troponin I 0.031 (0.0-0.045) ng/mL Liver Function 03/16/25 03/17/25 Range/Units 11:10 06:00 Total Bilirubin 0.6 0.3 (0.3-1.2) mg/dL AST 30 20 (0-34) U/L ALT 14 11 (10-49) U/L Alkaline Phosphatase 158 H 118 H D (46-116) U/L Albumin 3.5 3.1 L (3.5-5.0) gm/dL Urine 03/16/25 Range/Units 16:40 Urine Color Lt-Yellow (Lt Yel-Yel) Urine Clarity Clear (Clear/Hazy) Urine pH 8.0 H (5.0-7.0) Ur Specific [place] 1.007 (1.001-1.035) Urine Protein 3+ A (Neg - Trace) Urine Glucose (UA) 4+ A (Negative) Quality Measures Quality Measures none Medications Home Medications and Allergies Home Medications ?Medication ?Instructions ?Recorded ?Confirmed ?Type blood sugar diagnostic (True 02/12/24 03/16/25 History Metrix Glucose Test Strip) lancets 30 gauge (TRUEplus Lancets) 02/12/24 03/16/25 History pen needle, diabetic 31 gauge x 02/12/24 03/16/25 History 3/16 (TechLITE Pen Needle) B complex-vitamin C-folic acid 1 tab PO QDAY 09/07/24 03/16/25 History atorvastatin 20 mg tablet 20 mg PO .evening 09/07/24 03/16/25 History ergocalciferol (vitamin D2) 1,250 1,250 mcg PO DAILY 09/07/24 03/16/25 History mcg (50,000 unit) capsule ofloxacin 0.3 % eye drops 1 drp ophthalmic (eye) QID 09/07/24 03/16/25 History ondansetron 4 mg disintegrating 4 mg PO QDAY PRN nausea and 09/07/24 03/16/25 History tablet vomiting prednisolone acetate 1 % eye 1 drp ophthalmic (eye) QID 09/07/24 03/16/25 History drops,suspension (Pred Forte) atropine 1 % eye drops 2 drp ophthalmic (eye) BID 03/16/25 03/16/25 History benzonatate 100 mg capsule 100 mg PO BID 03/16/25 03/16/25 History dapagliflozin propanediol 10 mg 10 mg PO QDAY 03/16/25 03/16/25 History tablet (Farxiga) gabapentin 100 mg capsule 100 mg PO TID 03/16/25 03/16/25 History hydroxyzine HCl 25 mg tablet 25 mg PO QDAY 03/16/25 03/16/25 History ketorolac 0.5 % eye drops 1 drp ophthalmic (eye) QID 03/16/25 03/16/25 History lidocaine 5 % topical patch 1 patch topical Q24H 03/16/25 03/16/25 History metoprolol succinate 25 mg 50 mg PO QDAY 03/16/25 03/16/25 History tablet,extended release 24 hr pioglitazone 15 mg tablet 15 mg PO QDAY 03/16/25 03/16/25 History sacubitril 49 mg-valsartan 51 mg 1 tab PO BID 03/16/25 03/16/25 History tablet (Entresto) Allergies Allergy/AdvReac Type Severity Reaction Status Date / Time No Known Allergies Allergy Verified 03/16/25 10:57 Visit Medications Acetaminophen (Acetaminophen 325 Mg Tablet) 650 mg PO Q6H PRN PRN Reason: Fever >101.5 or pain 1-3 Stop: 04/15/25 13:19 Dextrose (Dextrose 50%-Water Inj 50 Ml Syringe) 25 ml IV Q15MIN PRN PRN Reason: BG 50-70 responsive npo pt Stop: 04/15/25 15:12 Dextrose (Dextrose 50%-Water Inj 50 Ml Syringe) 50 ml IV Q15MIN PRN PRN Reason: BG <50 OR BG <70 & pt unresponsive Stop: 04/15/25 15:12 Epoetin Frank (Epoetin Frank-Epbx Inj 10,000 Unit/Ml Vial (Esrd)) 10,000 unit SC X1 ONE Stop: 03/17/25 12:01 Glucagon (Glucagon Inj 1 Mg Vial) 1 mg IM Q15MIN PRN PRN Reason: BG <70, and no IV access Heparin Sodium (Porcine) (Heparin Sod Inj 5000 Unit/Ml Vial) 5,000 unit SC Q12HR DANIEL Stop: 03/30/25 13:29 Last Admin: 03/16/25 21:15 Dose: 5,000 unit Ceftriaxone Sodium/Dextrose (Rocephin/D5w 1gm Iv Premix) 1 gm in 50 mls @ 100 mls/hr IV QDAY DANIEL Stop: 03/23/25 13:26 Last Admin: 03/16/25 13:38 Dose: Not Given Doxycycline Hyclate 100 mg/ (Sodium Chloride) 100 mls @ 100 mls/hr IV BID DANIEL Stop: 03/23/25 13:29 Last Admin: 03/16/25 20:49 Dose: 100 mls/hr Albumin Human (Albuminar-25 Ivpb) 25 gm in 100 mls @ 100 mls/min IV PRN PRN PRN Reason: DIALYSIS Insulin Human Lispro (Insulin Lispro (Admelog) 1 Unit/0.01 Ml Unit) 0 unit SC AC [facility]; Protocol Stop: 04/15/25 16:59 Last Admin: 03/17/25 07:53 Dose: Not Given Discontinued Medications Furosemide (Furosemide Inj 10 Mg/Ml 4ml Vial) 40 mg IVP X1 ONE Stop: 03/16/25 14:14 Last Admin: 03/16/25 14:37 Dose: 40 mg Ceftriaxone Sodium 2 gm/ (Sodium Chloride) 50 mls @ 100 mls/hr IV X1 ONE Stop: 03/16/25 12:46 Last Infusion: 03/16/25 13:04 Dose: Infused Magnesium Sulfate (Magnesium Sulfate Ivpb) 4 gm in 50 mls @ 12.5 mls/hr IV X1 ONE Stop: 03/16/25 23:57 Last Admin: 03/16/25 20:49 Dose: 12.5 mls/hr Insulin Human Lispro (Insulin Lispro (Admelog) 1 Unit/0.01 Ml Unit) 5 unit SC X1 ONE Stop: 03/16/25 21:55 Last Admin: 03/16/25 22:38 Dose: 5 unit Ondansetron HCl (Ondansetron Odt 4 Mg Tabrap) 4 mg PO X1 ONE; Protocol Stop: 03/16/25 11:02 Last Admin: 03/16/25 12:35 Dose: 4 mg Sodium Chloride (Sodium Chloride Rt 10% 15 Ml Nebu) 5 ml INH X1 ONE Stop: 03/16/25 13:21 Assessment & Plan Plan Catrina Lorenzo is a 54F pmhx significant for NIDDM2, ESRD on HD MWF 2/2 diabetic nephropathy, HTN, and gout who presented to [facility] ED on 03/16 for difficulty walking, admitted for near syncope and community-acquired pneumonia on abx, pending echo read, hypernatremia resolved and hyponatremia improving. HD per regular [facility] schedule #ESRD on HD MWF 2/2 diabetic nephropathy #Normocytic anemia Patient has a history of ESRD on hemodialysis Monday. TDC was placed in August 2024. Patient states that she is consistent with her hemodialysis sessions and follows Dr. Pedraza outpatient for nephrology. Admission hemoglobin 11.3, baseline 9-10, repeat 9.6. Iron low 39, TIBC low 225, iron sat low 17 Received HD 03/17, Plan: - HD today - CTM renal panel - Renal diet - Feraheme 510 mg x1 #Hyperkalemia, resolved Patient noted to have potassium of 5.2 in ED. history of ESRD on hemodialysis. Plan: - CTM, will most likely return to normal limits with dialysis Other medical problems #Hyponatremia, improving Na 131 -> 133 #Non-insulin dependent type 2 diabetes mellitus A1c 7.3 Patient has a long history of diabetes type 2. Patient does not take any insulin at home. #Near syncope likely 2/2 #Poor PO intake and #Chronic diarrhea - Encourage oral hydration #Community acquired pneumonia on abx #HFrEF (EF 30%) echo pending #Hypertension #Cholelithiasis, without cholecystitis #RUQ abdominal pain - lipase elevated 112 #gout #decreased vision #cataracts - managment per primary team Plan discussed with nephrology attending Dr. Keila Bonner MD Internal Medicine PGY-1 Attending Provider Attestation/Addendum Patient seen and examined with resident physician Dr. Bonner. Note reviewed, agree with findings and recommendations. Patient admitted with shortness of breath and pneumonia. Patient currently seen on dialysis. Tolerating dialysis without any problems. Hemodialysis for 3 hours, 2K, ultrafiltration 2-3 L, Epogen 6000, no heparin ordered. Plan of care discussed with the dialysis nurse. Please see dialysis flowsheet for further details. Thank you Lisa for allowing me to participate in the care of Ms. Fritz
[2025-03-17] MEDS: EPOETIN ALFA-EPBX INJ 10,000 UNIT/ML VIAL (ESRD) 10000 UNIT SC (11:03)
[2025-03-17] MEDS: cefTRIAXone/D5w 1gm IV premix 1 GM/50 ML BAG IV (13:02)
[2025-03-17] MEDS: HEPARIN SOD INJ 5000 UNIT/ML VIAL SC ×2 (13:03→20:21)
[2025-03-17] MEDS: INSULIN LISPRO (AdmeLOG) 1 UNIT/0.01 ML UNIT SC ×2 (13:13→17:01)
[2025-03-17] MEDS: HEPARIN SOD INJ 1000 UNIT/ML VIAL 10 ML 4000 UNIT INDWELLCAT (13:23)
--- NOTE | 2025-03-17 13:39 | CHAP ---
Patient was visited by a Spiritual Care Volunteer on 03/17/2025 between 0900 and 0955 and received comfort, encouragement and/or prayer.
--- NOTE | 2025-03-17 14:27 | ESPR_ITS ---
<Statement entered by Dago Lucas MD - 03/18/25 15:33> Patient was seen and examined at bedside. I agree on the assessment and plan on this note as documented by resident Gayle Fowler DO PGY1. 54-year-old female with past medical history as below, pending echocardiogram admitted for near syncope workup. Orthostatic vitals negative, does have chronic diarrhea follows GI outpatient. Patient endorsed history of heart failure with reduced ejection fraction, reports that she is scheduled to follow Dr. Ferrer outpatient. We will continue IV antibiotics for pneumonia, anticipate discharge in the next 24 to 48 hours. Case discussed with attending Dr. Lisa Lucas MD PGY-2 <Statement entered by Lisa Santiago MD - 03/18/25 09:31> I attest that I was physically present for the evaluation, physical examination, lab and imaging review of the patient with the residents. I discussed the case with the residents and agree with the findings and plans of care as documented below. Lisa Santiago MD Documentation for date of: 03/17/25 Subjective Subjective Interval history: Overnight, glucose 366, 5 units insulin given. Patient seen and examined in dialysis. Patient reports feeling much better than on admission. Still endorses some right abdominal tenderness. Has had not had a bowel movement since prior to admission. States that she has been having episodes of diarrhea for the past few months ever since she started on dialysis. Does endorse lower p.o. intake prior to admission as she went to a birthday libertarian the prior night and only drank 1 electrolyte drink. Denies shortness of breath, lightheadedness or any more episodes of near syncope. Iron low at 39, Feraheme 510 mg x 1 today. Patient received dialysis today and encourage oral hydration. PT has been ordered. Echo taken, awaiting read. Continue antibiotics of ceftriaxone and doxycycline. Exam Vital Signs Temp Pulse Resp BP Pulse Ox O2 Del Method O2 Flow Rate 97.0 F 97 14 147/80 H 98 Room Air 2 03/17/25 12:00 03/17/25 12:00 03/17/25 12:00 03/17/25 12:00 03/17/25 12:00 03/17/25 12:00 03/16/25 10:39 Narrative Exam GENERAL: AOx3, no acute distress HEENT: NC/AT, mucous membranes moist, bilateral sclera anicteric CARDIOVASCULAR: regular rate and rhythm, S1/S2 present, no murmurs appreciated, RIJ TDC PULMONARY: clear to auscultation bilaterally, no rales/rhonchi/wheezes ABDOMINAL: soft, R abdomen mildly tender to palpation, non-distended, no rebound/guarding, bowel sounds present EXTREMITIES: 1+ BLE edema SKIN: warm and dry, intact, no rashes NEURO: CN II-XII grossly intact, no focal deficits, alert, following commands Objective Labs 03/17/25 06:00 03/17/25 06:00 Labs: Laboratory Results - last 24 hr 03/16/25 03/16/25 03/17/25 16:40 22:36 06:00 WBC 14.2 H RBC 2.86 L Hgb 9.6 L Hct 27.7 L MCV 97 MCH 33.6 MCHC 34.7 RDW Std Deviation 51.1 H Plt Count 241 Neut % (Auto) 86 H Lymph % (Auto) 9 L Crane % (Auto) 5 Eos % (Auto) 0 Baso % (Auto) 0 Neut # (Auto) 12.2 H Lymph # (Auto) 1.2 Crane # (Auto) 0.7 Eos # (Auto) 0.0 Baso # (Auto) 0.0 Immature Gran # (Auto) 0.05 H Absolute Nucleated RBC 0.00 Immature Gran % 0 Nucleated RBC % 0 PT 11.4 INR 1.0 APTT 37.8 H Sodium 133 L Potassium 5.1 4.9 Chloride 95 L Carbon Dioxide 25.5 Anion Gap 13 BUN 52 H Creatinine 4.6 H* D Estim Creat Clear Calc 11.2 L eGFR 11 L* BUN/Creatinine Ratio 11 L Glucose [address] Glu mg/dL 163 H Hemoglobin A1c 7.3 H Calculated Osmolality 286 Calcium 9.8 Corrected Calcium 10.5 H Phosphorus 4.8 Magnesium 2.4 Iron 39 L TIBC 225 L Iron Saturation 17 L Unsat Iron Binding 186 L Total Bilirubin 0.3 AST 20 ALT 11 Alkaline Phosphatase 118 H D Total Protein 5.9 Albumin 3.1 L Globulin 2.8 Albumin/Globulin Ratio 1.1 L Triglycerides 26 L Cholesterol 118 L LDL Cholesterol, Calc 45 HDL Cholesterol 68 H Cholesterol/HDL Ratio 1.7 L TSH 1.71 Free T4 0.95 Ur Collection Type Voided Urine Color Lt-Yellow Urine Clarity Clear Urine pH 8.0 H Ur Specific [place] 1.007 Urine Protein 3+ A Urine Glucose (UA) 4+ A Urine Ketones Negative Urine Blood Trace Urine Nitrite Negative Urine Bilirubin Negative Urine Urobilinogen (Auto) Negative Ur Leukocyte Esterase Negative Urine RBC 9 H Urine WBC 3 Ur Squamous Epith Cells 15 H Urine Bacteria Rare Ur Culture Indicated? Not Indicated Quality Measures Quality Measures none Assessment & Plan Assessment Current Active Medications: Generic Name Dose Route Start Last Admin Trade Name Freq PRN Reason Stop Dose Admin Acetaminophen 650 mg 03/16/25 13:20 Acetaminophen 325 Mg Tablet PO 04/15/25 13:19 Q6H PRN Fever >101.5 or pain 1-3 Dextrose 25 ml 03/16/25 15:13 Dextrose 50%-Water Inj 50 Ml Syringe IV 04/15/25 15:12 Q15MIN PRN BG 50-70 responsive npo pt Dextrose 50 ml 03/16/25 15:13 Dextrose 50%-Water Inj 50 Ml Syringe IV 04/15/25 15:12 Q15MIN PRN BG <50 OR BG <70 & pt unresponsive Glucagon 1 mg 03/16/25 15:13 Glucagon Inj 1 Mg Vial IM Q15MIN PRN BG <70, and no IV access Heparin Sodium (Porcine) 5,000 unit 03/16/25 13:30 03/17/25 13:03 Heparin Sod Inj 5000 Unit/Ml Vial SC 03/30/25 13:29 5,000 unit Q12HR DNAIEL Administration Heparin Sodium (Porcine) 4,000 unit 03/17/25 13:16 03/17/25 13:23 Heparin Sod Inj 1000 Unit/Ml Vial 10 Ml INDWELLCAT 03/31/25 13:15 4,000 unit PRN PRN Administration DIALYSIS Ceftriaxone Sodium/Dextrose 1 gm in 50 mls @ 100 mls/hr 03/16/25 13:27 03/17/25 13:02 Rocephin/D5w 1gm Iv Premix IV 03/23/25 13:26 100 mls/hr QDAY DANIEL Administration Doxycycline Hyclate 100 mg/ 100 mls @ 100 mls/hr 03/16/25 13:30 03/16/25 21:49 Sodium Chloride IV 03/23/25 13:29 Infused BID DANIEL Infusion Albumin Human 25 gm in 100 mls @ 100 mls/min 03/17/25 07:30 Albuminar-25 Ivpb IV PRN PRN DIALYSIS Insulin Human Lispro 0 unit 03/16/25 17:00 03/17/25 13:13 Insulin Lispro (Admelog) 1 Unit/0.01 Ml Unit SC 04/15/25 16:59 2 unit AC [facility] Administration Protocol Plan Catrina Lorenzo is a 54F pmhx significant for NIDDM2, ESRD on HD MWF 2/2 diabetic nephropathy, HTN, and gout who presented to [facility] ED on 03/16 for difficulty walking, admitted for near syncope and community-acquired pneumonia. #Near syncope likely 2/2 #Poor PO intake and #Chronic diarrhea Patient noted to have weakness of bilateral lower extremities earlier on the morning of 03/16, requiring help from her mailroom messenger who she has never needed help from before. She was also noted to have a suspicion where it almost look like a curtain falling over her eyes. The patient denies loss of consciousness and did not have any falls. Also reports that she has been having episodes of chronic diarrhea since she has been on dialysis and prior to admission, only drank 1 electrolyte drink. Denies missing HD sessions. EKG in ED noted to have QTc 506. Orthostatic vitals borderline negative. TSH and T4 wnl Plan: - F/u echo, B12 and folate - Encourage oral hydration - Physical therapy referral ordered #Community acquired pneumonia Patient noted shortness of breath and chills on review of systems. Patient did have oxygen saturation of 88% on room air when she initially presented to ED, which quickly corrected on 2 L nasal cannula. Admission HR 94 and WBC 15.6. Chest x-ray shows right lung pneumonia with mild heart failure. SIRS score 2 PSI score 86, risk class III 0.9?2.8% mortality Plan: - F/u BCx and sputum Cx, MRSA nares - Ceftriaxone 1 g and doxycycline 100 mg BID (03/16-) #HFrEF (EF 30%) Patient states that in the past she had a stress test that showed that her heart was working at 30%. She states that this was done with a prosthetic aide at [place], possibly Dr. Montanez, but patient is unsure. This is most likely an echocardiogram that she had done in the past. The patient is on Sacubitril/Valsartan, Metoprolol, and Dapagliflozin at home, likely for HFrEF. Bilateral lower extremity swelling was noted on examination during admission. Patient endorses sleeping with two pillows to prop her head up at night to sleep. Plan: - Strict I&Os, daily weights - Cardiac diet with consistent carbohydrate, fluid restriction 1500 cc, and renal modifications - Echocardiogram ordered, pending #ESRD on HD MWF 2/2 diabetic nephropathy #Normocytic anemia Patient has a history of ESRD on hemodialysis Monday. TDC was placed back in August 2024. Patient states that she is consistent with her hemodialysis sessions and follows Dr. Pedraza outpatient for nephrology. Admission hemoglobin 11.3, baseline 9-10, repeat 9.6. Iron low 39, TIBC low 225, iron sat low 17 Received HD 03/17, Plan: - Nephrology, Dr. Pedraza, consulted, appreciate recommendations - CTM renal panel - Renal diet - Feraheme 510 mg x1 #Hypertension Patient has a history of hypertension. Can be primary or secondary to decreased renal function. Patient does take Sacubitril/valsartan and metoprolol at home. Plan: - Will hold home antihypertensive for now #Cholelithiasis, without cholecystitis #RUQ abdominal pain Patient complained of RUQ abdominal pain in ED. Negative Rose sign on examination. Patient states that she has had gall stones in the past, with her most recent history around January-February 2024, but has never required a cholecystectomy. Gallbladder US showed cholelithiasis, negative for cholecystitis Plan: - Continue to monitor RUQ abdominal pain, if worsening can consider additional imaging - Recommend to follow up outpatient with PCP for further management #Non-insulin dependent type 2 diabetes mellitus Patient has a long history of diabetes type 2. Patient does not take any insulin at home. Plan: - Will hold home pioglitazone and dapagliflozin - Sliding scale insulin step 1 #Hyperkalemia, improved Patient noted to have potassium of 5.2 in ED. Patient does have a history of ESRD on hemodialysis. Plan: - CTM, will most likely return to normal limits with dialysis #Hyponatremia, improving Patient noted to have sodium of 131 in ED. Patient does not appear to be symptomatic from hyponatremia at this time. Per chart review, has a hx of borderline hyponatremia. Possibly to be secondary to poor p.o. intake recently. Plan: - CTM sodium #History of gout Patient endorses a history of gout. Does not have symptoms of an acute flare at this moment and does not appear to be taking any home medications for management of gout. Plan: - Patient to follow up with outpatient PCP Hospital management: Lines: MARCUS, R IJ TDC Diet: Cardiac diet with consistent carbohydrate, fluid restriction 1.5L, and renal modifications Bowel: Not indicated GI prophylaxis: not indicated DVT prophylaxis: heparin q12 Disposition: tele for workup of near syncope and abx CODE STATUS: Full code Plan of care discussed with attending Dr. Santiago, and PGY-2 Dr. Lucas. Gayle Fowler, DO PGY-1 Internal Medicine
[2025-03-17] MEDS: DOXYCYCLINE INJ 100 MG in SODIUM CHLORIDE 0.9% (POP) 100 ML IV ×2 (14:30→20:21)
[2025-03-17] MEDS: ferumoxytoL (ESRD) 510 MG in SODIUM CHLORIDE 0.9% 100 ML 234 MG IV (15:57)
[2025-03-17 17:49] LABS: Vitamin B12 628 pg/mL (211-911)
--- NOTE | 2025-03-17 18:05 | PC.PT ---
PT eval only. Patient is at her baseline. Staff can assist the patient to go to restroom with walker.
[2025-03-17 18:33] LABS: Folate > 24.00 ng/mL (>5.38)
[2025-03-17] MEDS: ATORVASTATIN CALCIUM 20 MG TABLET PO (20:21)
[2025-03-17] MEDS: INSULIN LISPRO (AdmeLOG) 1 UNIT/0.01 ML UNIT 5 UNIT SC (20:40)
[2025-03-17] MEDS: ACETAMINOPHEN 325 MG TABLET 650 MG PO (20:40)
[2025-03-18] VITALS: BP 147/84; PULSE 90; PULSE 92; RESP 16; TEMP 36.3; O2SAT 97
[2025-03-18 04:00] VITALS: BP 150/84; PULSE 92; RESP 17; TEMP 36.4; O2SAT 96
[2025-03-18 05:30] VITALS: BMI 28.0
[2025-03-18 06:16] LABS: Basophils # (Auto) 0.0 Thou/mm3 (0.0-0.2); Basophils % (Auto) 0 % (0-2.5); Eosinophils # (Auto) 0.2 Thou/mm3 (0.0-0.5); Eosinophils % (Auto) 1 % (0-10); Hematocrit 31.2 % (36.0-46.0); Hemoglobin 10.5 g/dL (12.0-16.0); Immature Granulocytes Auto 0.06 Thou/mm3 (0.00-0.00); Lymphocytes # (Auto) 1.5 Thou/mm3 (1.0-4.8); Lymphocytes % (Auto) 14 % (10-50); Mean Corpuscular HGB Conc 33.7 g/dl (31.0-37.0); Mean Corpuscular Hemoglobin 33.4 pg (25.0-35.0); Mean Corpuscular Volume 99 fL (80-100); Monocytes # (Auto) 1.0 Thou/mm3 (0.0-0.8); Monocytes % (Auto) 9 % (0-12); Neutrophils # (Auto) 8.1 Thou/mm3 (1.8-7.7); Neutrophils % (Auto) 75 % (37-80); Nucleated Red Blood Cell # 0.00 Thou/mm3 (0.00-0.00); Nucleated Red Blood Cell % 0 /100 WBC (0); Platelet Count 251 Thou/mm3 (140-440); RDW Standard Deviation 54.4 fL (36.4-46.3); Red Blood Count 3.14 Miln/mm3 (4.00-5.20); White Blood Count 10.8 Thou/mm3 (3.6-11.0)
[2025-03-18 06:59] LABS: Alanine Aminotransferase 11 U/L (10-49); Albumin, Serum 3.4 gm/dL (3.5-5.0); Albumin/Globulin Ratio 1.2 (1.2-2.2); Alkaline Phosphatase 121 U/L (46-116); Anion Gap 13 (7-16); Aspartate Amino Transferase 21 U/L (0-34); BUN/Creatinine Ratio 11 Ratio (12-20); Bilirubin,Total 0.5 mg/dL (0.3-1.2); Blood Urea Nitrogen 35 mg/dL (9-23); Calcium 9.7 mg/dL (8.3-10.6); Calcium (Corrected) 10.2 mg/dL (8.5-10.1); Carbon Dioxide 24.2 mMol/L (20.0-31.0); Chloride 101 mMol/L (98-107); Creatinine (Component) 3.3 mg/dL (0.6-1.3); Estimated Creatinine Clearance 15.6 mL/min (>60); Globulin 2.9 gm/dL (2.3-3.5); Glucose 96 mg/dL (74-106); Magnesium 1.7 mg/dL (1.6-2.6); Osmolality,Calculated 283 (275-295); Phosphorous 5.2 mg/dL (2.4-5.1); Potassium 4.2 mMol/L (3.4-5.1); Sodium 138 mMol/L (136-145); Total Protein 6.3 gm/dL (5.7-8.2); eGFR 16 See Note
--- NOTE | 2025-03-18 07:44 | EKG_ITS ---
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
[2025-03-18 08:00] VITALS: BP 159/85; PULSE 103; PULSE 113; RESP 15; TEMP 36.9; O2SAT 95
--- NOTE | 2025-03-18 08:42 | ESPR_ITS ---
Documentation for date of: 03/18/25 Subjective Subjective Interval history: per h and p and interview conducted by me. Ms Bj harris a 54 yo woman with a hx of ESRD on HD MWF (follows with keila) T2DM (7.3 A1c), HTN, Gout, query CHF (followed by in jake ?Siad?, on GDMT), and vision problems (query glaucoma vs cataracts, follows with Dr. Johnson) wo presented to the ED with c/f difficulty ambulating. Admitted for presyncope and pneumonia. 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 The patient has multiple eye drop medications,not taking ROS The patient endorses chills and shortness of breath, denies fevers, coughing, RUQ tenderness, chest pain, dysuria, pyuria, and pain in her lower extremities. ED Course: On arrival to ED, the patient was noted to have O2 sat of 88%, which quickly corrected to 97% with 2L NC. Patient noted to have a heart rate of 94 on arrival. Labs were significant for WBC 50.6, sodium 131, potassium 5.2, creatinine 4.0, BUN 46, glucose 200, troponin negative at 0.031, BNP 2821, lipase 112, procalcitonin 5.73. Chest x-ray showed right lung pneumonia and mild heart failure. Gallbladder ultrasound showed multiple gallstones, negative for cholecystitis. Patient was given ceftriaxone 2 g in ED. Alcohol Intake:?Patient states that she drank in the past, but has not drank in a while Tobacco/Vape Use:?Patient smoked for about a year when she was 28 years old, no longer smokes Other Drug Use:?Patient has used illicit drugs 2 times in the past 03/17/2025: Pt admitted for PNA and syncope workup, Nephro consulted given ESRD MWF, Patient seen and examined while in HD, she appears comfortable satting well on RA, tolerating dialysis well, K 4.9, BUN 52, Cr 4.6, Iron studies with low iron, primary team to replete, given epogen, with hd, Hgb 9.6. WBC 14. lipase elevated to 112, continues on abx for pna per primary team. Will recive HD per her usual MWF schedule. 03/18/2025: Patient seen and examined at bedside. No acute complaints reports that she is breathing better than prior. On exam she has some mild congestion in the right mid to lower lung sinclair, left sounds clear to auscultation. K 4.2, BUN 34, CR 3., Pending echo read per primary team. Pending discharge per primary team will continue dialysis per Monday schedule. Exam Vital Signs Temp Pulse Resp BP Pulse Ox O2 Del Method O2 Flow Rate 97.6 F 92 17 150/84 H 96 Room Air 2 03/18/25 04:00 03/18/25 04:00 03/18/25 04:00 03/18/25 04:00 03/18/25 04:00 03/18/25 04:00 03/16/25 10:39 Narrative Exam GENERAL: no acute distress, AAO x3, pt seen at bedside sitting upright eating breakfast HEENT: Head AT/ NC. Mucous membranes dry. EOMI. pt can see colors and track. NECK: Supple, no lymphadenopathy, CARDIOVASCULAR: RRR. Normal S1/S2, No m/r/g. 1+ edema of bilateral LEs. RIJ TDC RESPIRATORY:R mid to lower lung sinclair with mild congestion, L is clear to auscultation nl wob, on room air GASTROINTESTINAL: Abdomen soft, non tender no palpable masses. Bowel sounds present MUSCULOSKELETAL:? No cyanosis or edema, no visible joint swelling. NEUROLOGICAL: CN II-XII grossly intact. No focal deficits. Sensation intact, symmetric. PSYCHIATRIC: Awake and alert, not agitated, normal mood and affect. SKIN: No obvious rashes, no jaundice, normal turgor. Objective Labs 03/18/25 05:47 03/18/25 05:47 Labs: Laboratory Results - last 24 hr 03/17/25 03/18/25 06:00 05:47 WBC 10.8 RBC 3.14 L Hgb 10.5 L Hct 31.2 L MCV 99 MCH 33.4 MCHC 33.7 RDW Std Deviation 54.4 H Plt Count 251 Neut % (Auto) 75 Lymph % (Auto) 14 Isabela % (Auto) 9 Eos % (Auto) 1 Baso % (Auto) 0 Neut # (Auto) 8.1 H Lymph # (Auto) 1.5 Isabela # (Auto) 1.0 H Eos # (Auto) 0.2 Baso # (Auto) 0.0 Immature Gran # (Auto) 0.06 H Absolute Nucleated RBC 0.00 Immature Gran % 1 H Nucleated RBC % 0 Sodium 138 Potassium 4.2 D Chloride 101 Carbon Dioxide 24.2 Anion Gap 13 BUN 35 H Creatinine 3.3 H D Estim Creat Clear Calc 15.6 L eGFR 16 L BUN/Creatinine Ratio 11 L Glucose 96 D Calculated Osmolality 283 Calcium 9.7 Corrected Calcium 10.2 H Phosphorus 5.2 H Magnesium 1.7 Total Bilirubin 0.5 AST 21 ALT 11 Alkaline Phosphatase 121 H Total Protein 6.3 Albumin 3.4 L Globulin 2.9 Albumin/Globulin Ratio 1.2 Vitamin B12 628 Folate > 24.00 Quality Measures Quality Measures VTE prophylaxis Assessment & Plan Assessment Current Active Medications: Generic Name Dose Route Start Last Admin Trade Name Freq PRN Reason Stop Dose Admin Acetaminophen 650 mg 03/16/25 13:20 03/17/25 20:40 Acetaminophen 325 Mg Tablet PO 04/15/25 13:19 650 mg Q6H PRN Administration Fever >101.5 or pain 1-3 Atorvastatin Calcium 20 mg 03/17/25 21:00 03/17/25 20:21 Atorvastatin Calcium 20 Mg Tablet PO 04/16/25 20:59 20 mg HS DANIEL Administration Dextrose 25 ml 03/16/25 15:13 Dextrose 50%-Water Inj 50 Ml Syringe IV 04/15/25 15:12 Q15MIN PRN BG 50-70 responsive npo pt Dextrose 50 ml 03/16/25 15:13 Dextrose 50%-Water Inj 50 Ml Syringe IV 04/15/25 15:12 Q15MIN PRN BG <50 OR BG <70 & pt unresponsive Gabapentin 100 mg 03/18/25 08:45 Gabapentin 100 Mg Capsule PO 04/17/25 08:44 TID DANIEL Glucagon 1 mg 03/16/25 15:13 Glucagon Inj 1 Mg Vial IM Q15MIN PRN BG <70, and no IV access Heparin Sodium (Porcine) 5,000 unit 03/16/25 13:30 03/17/25 20:21 Heparin Sod Inj 5000 Unit/Ml Vial SC 03/30/25 13:29 5,000 unit Q12HR DANIEL Administration Heparin Sodium (Porcine) 4,000 unit 03/17/25 13:16 03/17/25 13:23 Heparin Sod Inj 1000 Unit/Ml Vial 10 Ml INDWELLCAT 03/31/25 13:15 4,000 unit PRN PRN Administration DIALYSIS Ceftriaxone Sodium/Dextrose 1 gm in 50 mls @ 100 mls/hr 03/16/25 13:27 03/17/25 13:32 Rocephin/D5w 1gm Iv Premix IV 03/23/25 13:26 Infused QDAY DANIEL Infusion Doxycycline Hyclate 100 mg/ 100 mls @ 100 mls/hr 03/16/25 13:30 03/17/25 20:21 Sodium Chloride IV 03/23/25 13:29 100 mls/hr BID DANIEL Administration Albumin Human 25 gm in 100 mls @ 100 mls/min 03/17/25 07:30 Albuminar-25 Ivpb IV PRN PRN DIALYSIS Magnesium Sulfate 4 gm in 50 mls @ 12.5 mls/hr 03/18/25 08:15 Magnesium Sulfate Ivpb IV 03/18/25 12:14 X1 ONE Insulin Human Lispro 0 unit 03/16/25 17:00 03/18/25 07:33 Insulin Lispro (Admelog) 1 Unit/0.01 Ml Unit SC 04/15/25 16:59 Not Given AC [facility] Protocol Multivitamins 1 tab 03/18/25 09:00 Multivitamins Tablet PO 04/17/25 08:59 QDAY [facility] Non-Formulary Medication 1 tab 03/18/25 09:00 Sacubitril-Valsartan [Entresto] PO 04/17/25 08:59 BID [facility] Plan Catrina Lorenzo is a 54F pmhx significant for NIDDM2, ESRD on HD MWF 2/2 diabetic nephropathy, HTN, and gout who presented to [facility] ED on 03/16 for difficulty walking, admitted for near syncope and community-acquired pneumonia on abx, p ending echo read, hypernatremia resolved and hyponatremia resolved. HD per regular MWF schedule. OK to discharge per nephrology perspective, will continue HD per MWF schedule while in patient. #ESRD on HD MWF 2/2 diabetic nephropathy #Normocytic anemia Patient has a history of ESRD on hemodialysis Monday. TDC was placed in August 2024. Patient states that she is consistent with her hemodialysis sessions and follows Dr. Pedraza outpatient for nephrology. Admission hemoglobin 11.3, baseline 9-10, repeat 9.6. Iron low 39, TIBC low 225, iron sat low 17, iron repleted Received HD 03/17, Plan: - no HD today - CTM renal panel - Renal diet - Feraheme 510 mg x1 #Hyperkalemia, resolved Patient noted to have potassium of 5.2 in ED. history of ESRD on hemodialysis. K 4.2 today Plan: returned to normal limits with dialysis Other medical problems #Hyponatremia, resolved Na 131 -> 138 #hyperphosphatemia - phos 5.2, consider adding renvela if Phos >5.5 #hypercalcemia - PTH elevated 166 #hypoalbuminemia Alb 3.4 #Non-insulin dependent type 2 diabetes mellitus A1c 7.3 Patient has a long history of diabetes type 2. Patient does not take any insulin at home. #Near syncope likely 2/2 #Poor PO intake and #Chronic diarrhea - Encourage oral hydration #Community acquired pneumonia on abx #HFrEF (EF 30%) pending echo read #Hypertension #Cholelithiasis, without cholecystitis #RUQ abdominal pain- better - lipase elevated 112 #gout #decreased vision #cataracts - management per primary team Plan discussed with nephrology attending Dr. Keila Bonner MD Internal Medicine PGY-1 Attending Provider Attestation/Addendum Patient seen and examined with resident physician Dr. Bonner. Note reviewed, agree with findings and recommendations. Patient admitted with shortness of breath and pneumonia. patient received dialysis yesterday and is feeling much better today possible discharge today.
[2025-03-18 09:06] LABS: Parathyroid Hormone Intact 166.8 pg/ml (18.5-88.0)
[2025-03-18] MEDS: cefTRIAXone/D5w 1gm IV premix 1 GM/50 ML BAG IV (09:10)
[2025-03-18] MEDS: GABAPENTIN 100 MG CAPSULE PO ×2 (09:17→13:52)
[2025-03-18] MEDS: ONDANSETRON INJ 2 MG/ML INJ 2 ML 4 MG IVP (09:17)
[2025-03-18] MEDS: HEPARIN SOD INJ 5000 UNIT/ML VIAL SC (09:18)
[2025-03-18] MEDS: MULTIVITAMINS TABLET 1 TAB PO (09:19)
[2025-03-18] MEDS: DOXYCYCLINE INJ 100 MG in SODIUM CHLORIDE 0.9% (POP) 100 ML IV (10:05)
[2025-03-18] MEDS: Magnesium Sulfate 4 GM Ivpb 4 GM/50 ML BAG IV (10:06)
--- NOTE | 2025-03-18 11:03 | PC.SS ---
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 Pt is aware physicians are recommending her to follow up with Out Patient PT instead of HH and pt is agreeable. SS provided pt with [facility] which contains Out Patient PT's phone# and address.
--- NOTE | 2025-03-18 11:11 | PC.SS ---
Addendum entered by Geni Jean 03/18/25 11:23: Referral for Out Patient PT also sent on [facility]. Original Note: SS has faxed referral to Out Patient PT.
[2025-03-18] MEDS: INSULIN LISPRO (AdmeLOG) 1 UNIT/0.01 ML UNIT SC (11:52)
[2025-03-18 12:00] VITALS: BP 153/83; PULSE 95; PULSE 97; RESP 16; TEMP 36.4; O2SAT 96
--- NOTE | 2025-03-18 13:09 | ESDS_ITS ---
<Statement entered by Dago Lucas MD - 03/19/25 16:02> Patient was seen and examined at bedside. I agree on the assessment and plan on this note as documented by resident Gayle Fowler DO PGY1. 54-year-old female with past medical history as below noted for near syncope workup, orthostatics negative, echocardiogram showed significant heart failure with reduced ejection fraction EF 35 to 40%, patient already on GDMT which will be continued on discharge. Will stop pioglitazone as patient has heart failure, discontinued Farxiga in setting of ESRD. Patient to complete treatment for pneumonia with Augmentin, patient is stable for discharge responded well to hospital treatment. Case discussed with attending Dr. Pamela Lucas MD PGY-2 Planned Discharge Date 03/18/25 DS: Providers Provider Date of admission: 03/16/25 13:14 Primary care physician: Julianna Khan NP Admitting Provider: Lisa Santiago MD Attending Provider on Admission: Lisa Santiago MD Consults: 03/16/25 12:49 Consult to Nephrology Stat Comment: Consulting Provider: Iesha Pedraza 03/16/25 14:13 PT [Referral Physical Therapy] Routine Comment: Physician Instructions: Attending Provider on DC: Lisa Santiago MD Discharging Provider: Lisa Santiago MD DS: Diagnosis Problem List Completed Was Problem List Reviewed/Reconciled?: Yes Hospital Course Hospital Course Hospital course: Summary: Catrina Lorenzo is a 54F pmhx significant for NIDDM2, ESRD on HD MWF 2/2 diabetic nephropathy, HTN, and gout who presented to [facility] ED on 03/16 for difficulty walking, admitted for near syncope likely secondary to poor PO intake and chronic diarrhea and community-acquired pneumonia. Day earlier of admission, patient complains of near syncope, shortness of breath and chills, prompting ED visit. Patient was found to have right lung pneumonia with mild heart failure, and orthostatic vitals were taken and were borderline negative. Patient was treated with antibiotics and oral hydration was encouraged with resolution of presyncopal episodes. Patient has a history of HFrEF with history of orthopnea and echocardiogram was taken showing normal LV size with moderately dysfunction, approximate EF 35 to 40% with indeterminate left V diastolic function, RV size and function normal, mildly elevated RVSP of 30 to 35 mmHg. Trace to mild MR, AR and TR, mild aortic valve sclerosis without stenosis, mild dilated LA, trace pericardial effusion without cardiac tamponade. Throughout admission, nephrology was consulted and patient received her usual Monday dialysis session, and is recommended to follow-up her usual dialysis sessions. Of note, patient complained of right sided abdominal pain with history of gallstones in the past and gallbladder ultrasound showed cholelithiasis negative for cholecystitis; patient is recommended to follow-up outpatient for further management. On discharge patient is hemodynamically stable, labs and vitals reviewed to be stable, patient feeling ready to go home. Imaging: Chest x-ray shows right lung pneumonia with mild heart failure. Gallbladder US showed cholelithiasis, negative for cholecystitis Echocardiogram showed normal LV size with moderately dysfunction, approximate EF 35 to 40% with indeterminate left V diastolic function, RV size and function normal, mildly elevated RVSP of 30 to 35 mmHg. Trace to mild MR, AR and TR, mild aortic valve sclerosis without stenosis, mild dilated LA, trace pericardial effusion without cardiac tamponade Discharge Recommendations: - Please take all medications as prescribed - Stop pioglitazone and Farxiga - Start Januvia 25 mg daily - Continue loperamide 2 mg daily for diarrhea - Start Augmentin 500 mg twice daily for 4 more days for your pneumonia - Please follow up with your PCP within one week of discharge - Please follow up with your video recorder mechanic within 1-2 weeks of discharge - If your symptoms worsen, please seek immediate medical attention and return to your nearest emergency room. - If you do not have a PCP, you may follow up at the [facility] [address], [facility] [address], Hospital Diagnoses: #Near syncope likely 2/2 #Poor PO intake and #Chronic diarrhea #Community acquired pneumonia #HFrEF (EF 30%) #ESRD on HD MWF 2/2 diabetic nephropathy #Normocytic anemia #Hypertension #Cholelithiasis, without cholecystitis #RUQ abdominal pain #Non-insulin dependent type 2 diabetes mellitus #Hyperkalemia, improved #Hyponatremia, improving #History of gout Gayle Fowler, DO Internal Medicine, PGY-1 Status at Discharge Cognitive/behavioral status at discharge: Stable Overall status at discharge: patient is back to baseline Time Spent with Patient Time attestation: Total time spent providing and/or coordinating discharge services:36 min Time spent: Greater than 30 minutes Exam Vital Signs Temp Pulse Resp BP Pulse Ox O2 Del Method O2 Flow Rate 97.5 F 95 16 153/83 H 96 Room Air 2 03/18/25 12:00 03/18/25 12:00 03/18/25 12:00 03/18/25 12:00 03/18/25 12:00 03/18/25 12:00 03/16/25 10:39 Narrative Exam GENERAL: AOx3, no acute distress HEENT: NC/AT, mucous membranes moist, bilateral sclera anicteric CARDIOVASCULAR: regular rate and rhythm, S1/S2 present, no murmurs appreciated, RIJ TDC PULMONARY: clear to auscultation bilaterally, no rales/rhonchi/wheezes ABDOMINAL: soft, non-distended, no rebound/guarding, bowel sounds present EXTREMITIES: no peripheral edema SKIN: warm and dry, intact, no rashes NEURO: CN II-XII grossly intact, no focal deficits, alert, following commands Discharge Plan Plan Patient Disposition: HOME (Self Care) Patient condition on transfer: Stable Care Plan Goals: -Follow up with PCP within 1 week of discharge, if you do not have a primary care physician you can come see us at the [facility] by calling [phone] -You have been prescribed antibiotics for 4 more days, please complete the course -Please follow up with your video recorder mechanic within 2 weeks -Continue rest of medications as previously prescribed -Return to the ED or call EMS if symptoms return and/or worsen Prescriptions/Referrals Prescriptions/Med Rec: New Januvia 25 mg tablet 25 mg PO QDAY Qty: 30 0RF amoxicillin-pot clavulanate [Augmentin] 500-125 mg tablet 1 tab PO BID 4 Days Qty: 8 0RF Continued (DME) True Metrix Glucose Test Strip Strip (DME) pen needle, diabetic [TechLITE Pen Needle] 31 gauge x 3/16 needle (DME) lancets [TRUEplus Lancets] 30 gauge misc (DME) Blood Glucose Test Strip See Rx Instructions .Route Qty: 50 3RF Rx Instructions: As directed (DME) pen needle, diabetic 29 gauge needle See Rx Instructions .Route Qty: 100 0RF Rx Instructions: As directed (DME) lancets [Lancets, Super Thin] Misc See Rx Instructions .Route Qty: 200 3RF Rx Instructions: As directed (DME) FreeStyle Daniel 2 [place]s [place]ing Misc See Rx Instructions .Route Qty: 1 3RF Rx Instructions: As directed (DME) FreeStyle Daniel 2 Sensor Kit See Rx Instructions .Route Qty: 1 3RF Rx Instructions: As directed ondansetron 4 mg tablet,disintegrating 4 mg PO QDAY PRN (Reason: nausea and vomiting) Patient Comments: DISSOLVE 1 TABLET ON TONGUE EVERY DAY NEEDED FOR NAUSEA ofloxacin 0.3 % drops 1 drp ophthalmic (eye) QID atorvastatin 20 mg tablet 20 mg PO .evening Patient Comments: TAKE 1 TABLET BY MOUTH IN THE EVENING prednisolone acetate [Pred Forte] 1 % drops,suspension 1 drp ophthalmic (eye) QID B complex-vitamin C-folic acid [Coty-Baldev] 1 tab PO QDAY ergocalciferol (vitamin D2) 1,250 mcg (50,000 unit) capsule 1,250 mcg PO DAILY Patient Comments: TAKE 1 CAPSULE BY MOUTH WEEKLY benzonatate 100 mg capsule 100 mg PO BID Patient Comments: TAKE 1 CAPSULE BY MOUTH TWICE A DAY NEEDED gabapentin 100 mg capsule 100 mg PO TID lidocaine 5 % adhesive patch,medicated 1 patch topical Q24H Rx Instructions: leave on most painful area for up to 12 hrs atropine 1 % drops 2 drp ophthalmic (eye) BID ketorolac 0.5 % drops 1 drp ophthalmic (eye) QID hydroxyzine HCl 25 mg tablet 25 mg PO QDAY Entresto 49-51 mg tablet 1 tab PO BID metoprolol succinate 25 mg tablet extended release 24 hr 50 mg PO QDAY Discontinued dapagliflozin propanediol [Farxiga] 10 mg tablet 10 mg PO QDAY pioglitazone 15 mg tablet 15 mg PO QDAY Referrals: Julianna Khan NP [Primary Care Provider] - Patient/Caregiver Discharge Instructions Discharge Activity: activity as tolerated Education Materials: Chest and Lung Problems, What Is Pneumonia?, Lung Anatomy, Preventing Pneumonia, Treating Pneumonia, Causes of Syncope, Diagnosing Syncope, Dizziness Balance Probs Fainting, Dizziness Fainting Poss Causes, Acute Kidney Failure Dc, When You Have Pneumonia, ED Pneumonia (Adult) Print Language: Malagasy Stand Alone Forms: Porsha Award Info., Patient Portal Info Letter Discharge Order Discharge Orders: Discharge (Routine); Ordered 03/18/25 Ordered By: Kartik Barragan Quality Discharge Quality Measures VTE prophylaxis MD Attestestation MD Attestation I attest that I was physically present for the evaluation, physical examination, lab and imaging review of the patient with the residents. I discussed the case with the residents and agree with the findings and plans of care as documented above. Lisa Santiago MD
[2025-03-18 14:53] VITALS: PULSE 87; RESP 18; RESP 94
[2025-03-18 15:00] VITALS: BP 144/83; PULSE 92; RESP 17; TEMP 36.7; O2SAT 99
--- NOTE | 2025-03-19 10:41 | CHAP ---
Patient was visited by a Spiritual Care Volunteer on 03/18/2025 between 0915 and [id number] and received comfort, encouragement and/or prayer.
== END 2025-03-18 15:08 | disposition home or self-care (01) | DRG 139 ==
LOC: SERX 11:20 → SERHOLD 13:22 → S2NX 15:37
PROVIDERS: Physician Assistant Medical; Admitting Provider Student in an Organized Health Care Education/Training Program; Emergency Provider Emergency Medicine; PCP Nurse Practitioner Family; Visit Provider Student in an Organized Health Care Education/Training Program
DX: J18.9 Pneumonia, unspecified organism (principal); E11.22 Type 2 diabetes mellitus with diabetic chronic kidney disease; I13.2 Hypertensive heart and chronic kidney disease with heart failure and with stage 5 chronic kidney disease, or end stage renal disease; N18.6 End stage renal disease; Z99.2 Dependence on renal dialysis; E87.5 Hyperkalemia; M10.9 Gout, unspecified; K80.20 Calculus of gallbladder without cholecystitis without obstruction; I50.22 Chronic systolic (congestive) heart failure; E87.1 Hypo-osmolality and hyponatremia; Z79.84 Long term (current) use of oral hypoglycemic drugs; D63.1 Anemia in chronic kidney disease; E11.36 Type 2 diabetes mellitus with diabetic cataract; E83.39 Other disorders of phosphorus metabolism; E83.52 Hypercalcemia; E88.09 Other disorders of plasma-protein metabolism, not elsewhere classified; K52.9 Noninfective gastroenteritis and colitis, unspecified
CPT/HCPCS: 36415; 71045; 76705; 80053; 80061; 81001; 82607; 82746; 83036; 83540; 83550; 83605; 83690; 83735; 83880; 83970; 84100; 84132; 84145; 84439; 84443; 84484; 85025; 85610; 85730; 86850; 86900; 86901; 87040; 87081; 87205; 87811; 93005; 93306; 94762; 96365; 96366; 96372; 96375; 97162; 99284; J0696; J1643; J1644; J1815; J1938; J2405; J3475; J3490; J7050; Q0139; Q0162; Q5105; A9270

== ENCOUNTER 2025-06-02 11:13 | Emergency (ER) | payer MEDICAID, SELFPAY ==
[2025-06-02 11:22] VITALS: PULSE 94; BMI 28.3
[2025-06-02 11:25] VITALS: BP 102/59; PULSE 90; RESP 18; TEMP 37; O2SAT 96
--- NOTE | 2025-06-02 11:27 | EKG_ITS ---
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
--- NOTE | 2025-06-02 11:27 | EDNOTE_ITS ---
<Statement entered by Mary Romero MD - 06/02/25 17:57> As co-signing physician, I was present and available for consult prn. I concur with the plan and care as documented by the midlevel provider. ED General RME/HPI General Chief complaint: Weakness Stated complaint: WEAKNESS Time Seen by Provider: 06/02/25 11:25 Arrival date/time: 06/02/25 11:13 CC: Weakness HPI noticed her weakness this morning, patient is a dialysis patient of Dr. Pedraza's dialyzed Monday and Monday she skipped dialysis this today, is brought in by EMS who report stable vital signs. Patient denies chest pain shortness of breath difficulty breathing headache nausea vomiting or diarrhea. Patient started dialysis in August 2024 Related Data Home Medications ?Medication ?Instructions ?Recorded ?Confirmed blood sugar diagnostic (True 02/12/24 03/16/25 Metrix Glucose Test Strip) lancets 30 gauge (TRUEplus Lancets) 02/12/24 03/16/25 pen needle, diabetic 31 gauge x 02/12/24 03/16/2510/06 (TechLITE Pen Needle) B complex-vitamin C-folic acid 1 tab PO QDAY 09/07/24 03/16/25 atorvastatin 20 mg tablet 20 mg PO .evening 09/07/24 0 03/16/25 ergocalciferol (vitamin D2) 1,250 1,250 mcg PO DAILY 0 09/07/24 03/16/25 mcg (50,000 unit) capsule ofloxacin 0.3 % eye drops 1 drp ophthalmic (eye) QID 0 09/07/24 03/16/25 ondansetron 4 mg disintegrating 4 mg PO QDAY PRN nause a and 09/07/24 03/16/25 tablet vomiting prednisolone acetate 1 % eye 1 drp ophthalmic (eye) QI D 09/07/24 03/16/25 drops,suspension (Pred Forte) atropine 1 % eye drops 2 drp ophthalmic (eye) BID 0 03/16/25 03/16/25 benzonatate 100 mg capsule 100 mg PO BID 03/16/2502/22 gabapentin 100 mg capsule 100 mg PO TID 03/16/2503/16 hydroxyzine HCl 25 mg tablet 25 mg PO QDAY 03/16/25 ketorolac 0.5 % eye drops 1 drp ophthalmic (eye) QID 0 03/16/25 03/16/25 lidocaine 5 % topical patch 1 patch topical Q24H 03/1603/16/25 metoprolol succinate 25 mg 50 mg PO QDAY 03/16/2502/22 tablet,extended release 24 hr sacubitril 49 mg-valsartan 51 mg 1 tab PO BID 03/16/25 03/16/25 tablet (Entresto) Previous Rx's ?Medication ?Instructions ?Recorded blood sugar diagnostic (Blood #50 ea 02/12/24 Glucose Test strips) flash glucose scanning reader #1 ea 02/12/24 (FreeStyle Daniel 2 [place]) flash glucose sensor (FreeStyle #1 ea 02/12/24 Daniel 2 Sensor kit) lancets (Lancets, Super Thin) #200 ea 02/12/24 pen needle, diabetic 29 gauge #100 ea 02/12/24 sitagliptin phosphate 25 mg tablet 25 mg PO QDAY #30 t abs 03/18/25 (Januvia) Allergies Allergy/AdvReac Type Severity Reaction Status Date / Time No Known Allergies Allergy Verified 06/02/25 11:28 Review of Systems Review of Systems Narrative Review of Systems: GEN: No fever, no chills, no weight loss EYES: No discharge, no visual changes, no pain HEENT: No ear pain, no congestion, no sore throat PULM: No shortness of breath, no cough, no congestion CV: No chest pain, no dyspnea on exertion, no palpitations GI: No nausea, no vomiting, no diarrhea, no pain, no constipation : No frequency, no urgency, no dysuria MUSC/SKEL: No joint pain, no back pain SKIN: No rash PSYCH: No hallucinations, no depression HEME/LYMPH: No easy bleeding or bruising tendencies NEURO: + weakness, no headache Past Medical History Past Medical History NEUROLOGIC: Positive Cerebrovascular Accident (01/2024); Negative Seizures CARDIAC: Positive Hypercholesterolemia, Congestive Heart Failure (patient states she is unaware, ED nurse stated patient has CHF) and Hypertension; Negative Cardiac Disorders RESPIRATORY: Positive Bronchitis (2006); Negative Chronic Obstructive Pulmonary Disease (COPD) GASTROINTESTINAL: Positive Gastrointestinal Disorders, Gall Bladder Disease and Obesity (2003 245lb) GENITOURINARY: Positive Genitourinary Disorders and Renal Disease REPRODUCTIVE: Positive Previous Pregnancies (5) MUSCULOSKELETAL: Positive Musculoskeletal Disorders, Arthritis and Gout ENT: Positive Cataracts (bilateral), Glaucoma and Blind (Right eye blindness, 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) ENDOCRINE: Positive Endocrine Disorders and Diabetes Mellitus Type 2; Negative Diabetes Mellitus Type 1 HEMATOLOGIC: Negative Anemia OTHER HISTORY: Positive Falls and Chicken Pox; Negative Blood Transfusions, Blood Transfusion Reaction, Anesthesia Reactions, MRSA, VRSA or Cancer Family History FAMILY HISTORY: Positive Family Cardiac Disorders, Family Cancer (mom throat cancer, aunt breast cancer, aunt colon cancer) and Family Surgery (mom hysterectomy) Surgical History SURGICAL: Positive Eye Surgery (retina correction, bleeding in the back of the eye) and Tubal Ligation; Negative Section Social History SMOKING STATUS: Never smoker ED Exam Narrative Physical exam: [General: Not in any acute distress Head normocephalic HEENT: Eyes pupils are PERRLA EOMs are intact mouth pink dry membranes uvula is midline swallow symmetrical poor dentition all of the subsystems of HEENT are within acceptable limits Neck is supple nontender Chest equal chest rise nontender to palpation Respiratory: Clear to auscultation no wheezes crackles or rubs CV: Rate rhythm is regular no murmurs rubs or clicks Abdomen is soft nontender no masses positive bowel sounds all 4 quadrants Back: No CVA tenderness no spinous process tenderness from cervical spine thoracic and lumbar spine Skin: Pale, blanched conjunctiva, right anterior chest cath site clean dry and intact otherwise skin is intact no petechiae rash induration ulceration or crepitus Extremities: Moving all extremity against resistance cap refill less than 2 seconds neurosensory intact. No lower extremity edema Neuro: Awake alert oriented x3 Glascow coma 15 no focal deficits] Course Course Course Narrative: Laboratory results show anemia but no acute finding requires immediate or emergent intervention this time we will discharge the patient directly to dialysis, we discussed this with Dr. Pedraza the extruding department supervisor to states that she is dialyzed third shift , and we will send her home. Patient is in agreement with this plan. Quality Measures none Orders Category Date Time Status EKG (ED ONLY) *Do not use* NOW Care 06/02/25 11:27 Completed EKG (ED Only) Stat Exams 06/02/25 11:27 Draft B-Type Natriuretic Peptide Stat Lab 06/02/25 11:32 Completed CBC Stat Lab 06/02/25 11:32 Completed Comprehensive Metabolic Panel Stat Lab 06/02/25 11:32 Completed Drug Screen,Urine Stat Lab 06/02/25 12:20 Completed LDH (Lactate Dehydrogenase) Stat Lab 06/02/25 11:32 Completed Magnesium Stat Lab 06/02/25 11:32 Completed Partial Thromboplastin Time Stat Lab 06/02/25 11:32 Completed Prothrombin Time with INR Stat Lab 06/02/25 11:32 Completed Type and Screen Stat Lab 06/02/25 11:32 Completed Urinalysis, C/S if Indicated Stat Lab 06/02/25 12:20 Completed Vital Signs Vital signs: Vital Signs Temperature 98.6 F 06/02/25 11: Pulse Rate 90 06/02/25 11:25 Respiratory Rate 18 06/02/25 11:25 Blood Pressure 102/59 L 06/02/25 11:25 Pulse Oximetry (%) 96 06/02/25 11:25 Oxygen Delivery Method Room Air 06/02/25 11:25 Discharge Plan Plan Patient Disposition: HOME (Self Care) Patient condition on transfer: Stable Prescriptions/Referrals Prescriptions/Med Rec: No Action (DME) True Metrix Glucose Test Strip Strip (DME) pen needle, diabetic [TechLITE Pen Needle] 31 gauge x 3/16 needle (DME) lancets [TRUEplus Lancets] 30 gauge misc (DME) Blood Glucose Test Strip See Rx Instructions .Route Qty: 50 3RF Rx Instructions: As directed (DME) pen needle, diabetic 29 gauge needle See Rx Instructions .Route Qty: 100 0RF Rx Instructions: As directed (DME) lancets [Lancets, Super Thin] Misc See Rx Instructions .Route Qty: 200 3RF Rx Instructions: As directed (DME) FreeStyle Daniel 2 [place] Misc See Rx Instructions .Route Qty: 1 3RF Rx Instructions: As directed (DME) FreeStyle Adniel 2 Sensor Kit See Rx Instructions .Route Qty: 1 3RF Rx Instructions: As directed ondansetron 4 mg tablet,disintegrating 4 mg PO QDAY PRN (Reason: nausea and vomiting) Patient Comments: DISSOLVE 1 TABLET ON TONGUE EVERY DAY NEEDED FOR NAUSEA ofloxacin 0.3 % drops 1 drp ophthalmic (eye) QID atorvastatin 20 mg tablet 20 mg PO .evening Patient Comments: TAKE 1 TABLET BY MOUTH IN THE EVENING prednisolone acetate [Pred Forte] 1 % drops,suspension 1 drp ophthalmic (eye) QID B complex-vitamin C-folic acid [Coty-Baldev] 1 tab PO QDAY ergocalciferol (vitamin D2) 1,250 mcg (50,000 unit) capsule 1,250 mcg PO DAILY Patient Comments: TAKE 1 CAPSULE BY MOUTH WEEKLY benzonatate 100 mg capsule 100 mg PO BID Patient Comments: TAKE 1 CAPSULE BY MOUTH TWICE A DAY NEEDED gabapentin 100 mg capsule 100 mg PO TID lidocaine 5 % adhesive patch,medicated 1 patch topical Q24H Rx Instructions: leave on most painful area for up to 12 hrs atropine 1 % drops 2 drp ophthalmic (eye) BID ketorolac 0.5 % drops 1 drp ophthalmic (eye) QID hydroxyzine HCl 25 mg tablet 25 mg PO QDAY Entresto 49-51 mg tablet 1 tab PO BID metoprolol succinate 25 mg tablet extended release 24 hr 50 mg PO QDAY Januvia 25 mg tablet 25 mg PO QDAY Qty: 30 0RF Referrals: No Primary/Family,Physician [Primary Care Provider] - In 1 week Problem List Clinical Impression: Weakness, End-stage renal disease (ESRD), Anemia Patient/Caregiver Discharge Instructions Education Materials: Anemia Additional Instructions: Continue with dialysis on Monday and Monday follow-up with Dr. Pedraza Print Language: Scottish Stand Alone Forms: [employer]ha Award Info., Patient Portal Info Letter PA/LAUNDRY PRESS OPERATOR Supervising Physician PA/LAUNDRY PRESS OPERATOR Supervising Physician: Mohamud Franco ENP [facility] Clinical Information Provided by: patient and EMS Medical Records reviewed [facility] and EMS Meds/Rx considered, not ordered None Labs/Rad/Tests considered, not ordered None Chronic Illness/Social Conditions Explain: ESRD dialysis EKG Interpretation EKG #1: EKG Interpretation: EKG performed at 1338 shows a ventricular rate of 87 [place] interval 179 QRS of 92 QTc of 438 this is sinus rhythm. Labs Labs: interpreted by ri Lab(s) Interpretation(s): CBC shows a mild leukocytosis 11.7 with nation of 9.5 and 27.6 platelets within acceptable limits Coags within acceptable limits CMP shows a sodium 132 potassium of 5.2 chloride of 94 gap of 12 BUN of 64 creatinine 5.1 glucose of 224 AST at 75 ALT of 106 alk phos of 219 LDH at 270 CIWA T. bili is within acceptable limits BNP of greater than 3280 Urine 3+ protein 4+ glucose 1+ blood leukocyte esterase negative UA tox is negative ABO O+.
[2025-06-02 12:09] LABS: INR 1.1 (0.9-1.3); Partial Thromboplastin Time 26.8 Seconds (22.0-36.0); Prothrombin Time 11.4 Seconds (9.0-12.2)
[2025-06-02 12:14] LABS: Alanine Aminotransferase 106 U/L (10-49); Albumin, Serum 3.6 gm/dL (3.5-5.0); Albumin/Globulin Ratio 1.4 (1.2-2.2); Alkaline Phosphatase 219 U/L (46-116); Anion Gap 12 (7-16); Aspartate Amino Transferase 75 U/L (0-34); BUN/Creatinine Ratio 13 Ratio (12-20); Bilirubin,Total 0.4 mg/dL (0.3-1.2); Blood Urea Nitrogen 64 mg/dL (9-23); Calcium 8.5 mg/dL (8.3-10.6); Calcium (Corrected) 8.8 mg/dL (8.5-10.1); Carbon Dioxide 26.3 mMol/L (20.0-31.0); Chloride 94 mMol/L (98-107); Creatinine (Component) 5.1 mg/dL (0.6-1.3); Estimated Creatinine Clearance 10.0 mL/min (>60); Globulin 2.6 gm/dL (2.3-3.5); Glucose 224 mg/dL (74-106); LDH (Lactate Dehydrogenase) 277 U/L (120-246); Magnesium 1.6 mg/dL (1.6-2.6); Osmolality,Calculated 289 (275-295); Potassium 5.2 mMol/L (3.4-5.1); Sodium 132 mMol/L (136-145); Total Protein 6.2 gm/dL (5.7-8.2); eGFR 9 See Note
[2025-06-02 12:18] LABS: B-Type Natriuretic Peptide > 3280 pg/mL (0-100)
[2025-06-02 12:24] LABS: Collection Type, Urine Clean Catch
[2025-06-02 12:47] LABS: Basophils # (Auto) 0.0 Thou/mm3 (0.0-0.2); Basophils % (Auto) 0 % (0-2.5); Eosinophils # (Auto) 0.0 Thou/mm3 (0.0-0.5); Eosinophils % (Auto) 0 % (0-10); Hematocrit 27.6 % (36.0-46.0); Hemoglobin 9.5 g/dL (12.0-16.0); Immature Granulocytes Auto 0.06 Thou/mm3 (0.00-0.00); Lymphocytes # (Auto) 0.4 Thou/mm3 (1.0-4.8); Lymphocytes % (Auto) 3 % (10-50); Mean Corpuscular HGB Conc 34.4 g/dl (31.0-37.0); Mean Corpuscular Hemoglobin 33.3 pg (25.0-35.0); Mean Corpuscular Volume 97 fL (80-100); Monocytes # (Auto) 1.0 Thou/mm3 (0.0-0.8); Monocytes % (Auto) 9 % (0-12); Neutrophils # (Auto) 10.3 Thou/mm3 (1.8-7.7); Neutrophils % (Auto) 87 % (37-80); Nucleated Red Blood Cell # 0.00 Thou/mm3 (0.00-0.00); Nucleated Red Blood Cell % 0 /100 WBC (0); Platelet Count 157 Thou/mm3 (140-440); RDW Standard Deviation 45.8 fL (36.4-46.3); Red Blood Count 2.85 Miln/mm3 (4.00-5.20); White Blood Count 11.7 Thou/mm3 (3.6-11.0)
[2025-06-02 12:52] LABS: Amphetamine/Methamp Scrn,U Negative (Negative); Barbiturate Screen,Urine Negative (Negative); Benzodiazepines Screen,Urine Negative (Negative); Benzoylecgonine Screen, Ur Negative (Negative); Bilirubin,Urine Negative (Negative); Blood,Urine 1+ (Negative); Clarity,Urine Clear (Clear/Hazy); Color,Urine Lt-Yellow (Lt Yel-Yel); Culture Indicated,Urine Not Indicated; Fentanyl Screen,Urine Negative (Negative); Glucose, Urine 4+ (Negative); Ketones,Urine Negative (Negative); Leukocyte Esterase,Urine Negative (Negative); Nitrite,Urine Negative (Negative); Opiate Screen,Urine Negative (Negative); PH,Urine 7.5 (5.0-7.0); Protein,Urine 3+ (Neg - Trace); RBC,Urine 3 /hpf (0-3); Specific Gravity,Urine 1.014 (1.001-1.035); Squamous Epithelial Cell,Urine < 1 /hpf (0-5); THC Screen,Urine Negative (Negative); Urobilinogen,Urine Negative mg/dL (0.0-1.0); WBC,Urine 2 /hpf (0-5)
[2025-06-02 13:16] VITALS: BP 104/67; PULSE 79; RESP 16; TEMP 36.7; O2SAT 98
--- NOTE | 2025-06-02 14:01 | PC.NURSE ---
Pt. states to call Tanya her family member caretaker, to come pick her up and take her back to dialysis per Dr. Pedraza.
[2025-06-02 14:20] VITALS: BP 113/58; PULSE 77; RESP 18; TEMP 36.7; O2SAT 99
== END 2025-06-02 14:49 | disposition home or self-care (01) ==
PROVIDERS: Registered Nurse General Practice; Emergency Provider Emergency Medicine
DX: D64.9 Anemia, unspecified (principal); N18.6 End stage renal disease; Z99.2 Dependence on renal dialysis
CPT/HCPCS: 36415; 80053; 80307; 81001; 83615; 83735; 83880; 85025; 85610; 85730; 86850; 86900; 86901; 93005; 99282